=== PATIENT | male | born 1950 | race Caucasian/White ===

== ENCOUNTER 2019-10-31 10:06 | Emergency (ER) | payer MEDICARE ==
[2019-10-31 10:15] VITALS: TEMP 98
[2019-10-31] MEDS ORDERED: HYDROmorphone 1 MG/ML 1 ML SYRINGE IVP STA ×2 (10:19→11:20)
--- NOTE | 2019-10-31 10:33 | ED ---
General Adult HPI - General Chief complaint: Fall Stated complaint: Fall Time Seen by Provider: 10/31/19 10:08 Source: patient, EMS, RN notes reviewed, old records reviewed Mode of arrival: EMS Limitations: no limitations - History of Present Illness Initial comments: 69-year-old male presents status post fall. Patient states he was walking, tripped over a footstool and fell onto his right shoulder and right side of his face. There was no loss consciousness. His chief complaint is right shoulder pain. He does report a mild headache and facial swelling. No neck pain. He was placed in a c-collar by EMS during transport. Additionally was placed in an upper extremity sling. Vital signs were stable during transport. Patient denies chest pain or abdominal pain. Denies any lower extremity injuries. - Related Data Home Medications Medication Instructions Recorded Confirmed Donepezil [Aricept] 10 mg PO DAILY 08/17/14 10/28/14 Pantoprazole Sodium [Protonix] 40 mg PO DAILY 08/17/14 10/28/14 Sertraline [Zoloft] 150 mg PO DAILY 08/17/14 10/28/14 amantadine HCL [Symmetrel] 100 mg PO BID 08/17/14 10/28/14 lamoTRIgine [LaMICtal] 25 mg PO HS 08/17/14 10/28/14 rOPINIRole HCL [Requip] 1 mg PO HS 08/17/14 10/28/14 Previous Rx's Medication Instructions Recorded Cephalexin [Keflex] 500 mg PO Q8HR #21 cap 10/28/14 HYDROcodone/APAP 5-325MG [[place] 1 tab PO Q6HR PRN #12 tab 10/31/19 5-325] Allergies Allergy/AdvReac Type Severity Reaction Status Date / Time aspirin Allergy Unknown Verified 08/20/14 09:03 Penicillins Allergy Rash/Hives Verified 10/28/14 16:08 Review of Systems ROS Statement: Those systems with pertinent positive or pertinent negative responses have been documented in the HPI. ROS Other: All systems not noted in ROS Statement are negative. 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, History of Any Multi-Drug Resistant Organisms: None Reported Past Surgical History: Hernia Repair, Orthopedic Surgery Additional Past Surgical History / Comment(s): rt shoulder surgery Past Anesthesia/Blood Transfusion Reactions: Motion Sickness, Postoperative Nausea & Vomiting (PONV) Additional Past Anesthesia/Blood Transfusion Reaction / Comment(s): severe PONV Past Psychological History: No Psychological Hx Reported Smoking Status: Never smoker Past Alcohol Use History: None Reported Past Drug Use History: None Reported - Past Family History Father Family Medical History: Cancer General Exam Limitations: no limitations General appearance: alert, in no apparent distress Head exam: Present: other (Right periorbital and frontal soft tissue swelling, ecchymosis and hematoma) Eye exam: Present: PERRL, EOMI, periorbital swelling Neck exam: Present: normal inspection, other (C-collar placed by EMS) Respiratory exam: Present: normal lung sounds bilaterally. Absent: respiratory distress, wheezes Cardiovascular Exam: Present: regular rate, normal rhythm GI/Abdominal exam: Present: soft. Absent: distended, tenderness Extremities exam: Present: other (Significant pain with range of motion of the right shoulder, scapula is externally rotated suspect dislocation) Back exam: Present: normal inspection, full ROM. Absent: tenderness Neurological exam: Present: alert, oriented X3, CN II-XII intact. Absent: motor sensory deficit Psychiatric exam: Present: normal affect, normal mood Skin exam: Present: warm, dry Course Vital Signs 10/31/19 10/31/19 10/31/19 10:10 11:54 12:25 Temperature 98.0 F Pulse Rate 98 78 88 Respiratory 15 14 16 Rate Blood Pressure 160/95 126/77 165/75 O2 Sat by Pulse 95 98 100 Oximetry 10/31/19 10/31/19 10/31/19 12:30 12:35 12:40 Temperature Pulse Rate 60 56 L 80 Respiratory 16 16 16 Rate Blood Pressure 150/90 139/84 141/84 O2 Sat by Pulse 100 100 98 Oximetry 10/31/19 10/31/19 10/31/19 12:45 12:50 12:55 Temperature Pulse Rate 65 67 67 Respiratory 16 16 16 Rate Blood Pressure 131/77 123/76 125/77 O2 Sat by Pulse 98 100 98 Oximetry Procedures - Orthopedic Joint Reduction Joint #1 Consent Obtained: written consent Side: right Joint Reduction Location: shoulder Analgesia: procedural sedation Shoulder Technique Used (if applicable): traction/counter-traction, external rotation Post-Reduction Neuro Exam: intact Post-Reduction Vascular Exam: intact Post Reduction X-Ray Obtained: Yes Post Reduction X-Ray Results: reduced Splint Applied: Yes (sling) Patient Tolerated Procedure: well - Procedural Sedation Procedural Sedation Start Time: 12:30 Procedural Sedation Stop Time: 13:00 Indications: fracture/dislocation reduction ASA Class: II Mallampati Airway Score: 2 Preparation: quality assurance monitor final applied, pulse oximeter, capnometry used, supplemental O2 applied, suction/airway equipment at bedside, IV secured IV Etomidate Dose (mgs): 5 Complications: none Patient Tolerated Procedure: well Medical Decision Making - Medical Decision Making 69-year-old with fall, head trauma, and dislocation of the right shoulder. Patient has strong distal pulses, x-rays obtained, shows a Hill-Sachs deformity and anterior dislocation of the right shoulder. I did CT of brain and cervical spine, negative for intracranial hemorrhage or mass effect, negative for fracture subluxation of the cervical spine, he has no midline tenderness. Patient undergoes conscious sedation with reduction of the right shoulder. Postreduction x-rays are obtained which shows satisfactory reduction and sling is applied. He is given orthopedic follow-up. Disposition Clinical Impression: Fall, Closed head injury, Anterior shoulder dislocation Disposition: HOME SELF-CARE Condition: Good Instructions (If sedation given, give patient instructions): Shoulder Dislocation (ED), Concussion (ED) Prescriptions: HYDROcodone/APAP 5-325MG [[place] 5-325] 1 tab PO Q6HR PRN #12 tab PRN Reason: Pain Is patient prescribed a controlled substance at d/c from ED?: No Referrals: Colin Amanda MD [Primary Care Provider] - 1-2 days Adilson Jamison MD [STAFF PHYSICIAN] - 1-2 days Time of Disposition: 13:14
--- NOTE | 2019-10-31 10:55 | XR ---
EXAMINATION TYPE: XR shoulder limited RT DATE OF EXAM: 10/31/2019 CLINICAL HISTORY: Pain after fall injury. TECHNIQUE: 2 views of the right shoulder are obtained. COMPARISON: Chest x-ray 2012. FINDINGS: The humeral head is inferiorly medially displaced from the glenoid cavity consistent with a nterior dislocation. There is associated Hill-Sachs type fracture deformity involving the posterior s uperior aspect of the humeral head. No definitive associated Bankart lesion inferior osseous glenoid labrum. 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 Correlate clinically. The visualized ribs are intact and unremarkable. IMPRESSION: There is anterior shoulder dislocation with associated Hill-Sachs lesion.
--- NOTE | 2019-10-31 11:08 | CT ---
EXAMINATION TYPE: CT brain cspine wo con DATE OF EXAM: 10/31/2019 COMPARISON: Prior CT degenerative 06/04/2011. HISTORY: Fall injury with headache and neck pain. CT DLP: 1309.6 mGycm. Automated Exposure Control for Dose Reduction was Utilized. TECHNIQUE: CT scan of the head and cervical spine are performed without contrast. FINDINGS: There is no acute intracranial hemorrhage, mass effect, or midline shift identified. Mild ventricular and sulcal prominence. The calvarium is intact. The globes are intact and the visualize d sinuses are clear. Cervical spine is visualized in only visualized from C1 through portion of C7 vertebra and demonstrat es persistent levoconvex scoliosis centered upper lower cervical spine without evidence of acute frac ture or dislocation. Prevertebral soft tissue appears within normal limits. The C1-C2 articulation is within normal limits on the coronal images have to right now. Vertebral body heights are maintain ed. Persistent mild to moderate disc space narrowing posteriorly at C3-C4 and C5-C6 level. Visualized spinal canal is preserved. IMPRESSION: 1. There is no acute fracture or dislocation evident in the visualized cervical spine. C7 vertebra an d C7-T1 disc space are not included making evaluation suboptimal. 2. No acute intracranial hemorrhage or midline shift is seen.
[2019-10-31] MEDS ORDERED: KETOROLAC 15 MG/ML 1 ML VIAL IVP STA (11:20)
[2019-10-31] MEDS ORDERED: ETOMIDATE 2 MG/ML 10 ML VIAL IVP STA (12:16)
--- NOTE | 2019-10-31 12:54 | XR ---
EXAMINATION TYPE: XR shoulder limited RT DATE OF EXAM: 10/31/2019 CLINICAL HISTORY: Right shoulder dislocation. TECHNIQUE: Limited 2 views of the right shoulder are obtained. COMPARISON: Shoulder xray earlier today. FINDINGS: There is improved alignment of humeral head relative to glenoid cavity after reduction. Miguel ny Hill-Sachs type deformity less well seen. Chronic AC joint separation redemonstrated. IMPRESSION: There is interval successful reduction of anterior shoulder dislocation.
[2019-10-31 12:56] VITALS: PULSE 67
[2019-10-31 13:47] VITALS: BP 96/71; RESP 18
== END 2019-10-31 13:45 | disposition home or self-care (01) ==
LOC: EC 10:06
DX: S43.004A Unspecified dislocation of right shoulder joint, initial encounter (principal); S09.90XA Unspecified injury of head, initial encounter; K21.9 Gastro-esophageal reflux disease without esophagitis; M21.921 Unspecified acquired deformity of right upper arm; Z79.899 Other long term (current) drug therapy; Z88.0 Allergy status to penicillin; Z88.6 Allergy status to analgesic agent; Z98.890 Other specified postprocedural states; W01.0XXA Fall on same level from slipping, tripping and stumbling without subsequent striking against object, initial encounter; Y93.01 Activity, walking, marching and hiking; Y92.009 Unspecified place in unspecified non-institutional (private) residence as the place of occurrence of the external cause
CPT/HCPCS: 73020; 72125; 70450; 99285; 23650; 99152; 99153; 96374; 96375 ×2; 96376; J1170; J1885

== ENCOUNTER → 2020-06-30 | Outpatient (CLI) | payer MEDICARE | END | disposition home or self-care (01) | LOC: LABWHC1 12:24 | PROVIDERS: ATTEND Urology | DX: R97.20 Elevated prostate specific antigen [PSA] (principal) | CPT/HCPCS: 36415; 84153 ==

== ENCOUNTER → 2021-02-08 | Outpatient (CLI) | payer MEDICARE | END | disposition home or self-care (01) | LOC: LABWHC1 13:48 | PROVIDERS: ATTEND Urology | DX: R97.20 Elevated prostate specific antigen [PSA] (principal) | CPT/HCPCS: 36415; 84153 ==

== ENCOUNTER 2021-02-11 20:17 | Emergency (ER) | payer MEDICARE ==
[2021-02-11] MEDS ORDERED: DIPH,PERTUS(ACELL)TETVAC-LF 0.5 ML VIAL IM ONE (21:38)
[2021-02-11] MEDS ORDERED: TOPICAL SKIN ADHESIVE 1 EACH AMP TOPICAL STA (21:38)
--- NOTE | 2021-02-11 21:42 | ED ---
Wound/Laceration HPI - General Chief Complaint: Wound/Laceration Stated Complaint: laceration on head Time Seen by Provider: 02/11/21 21:38 Source: patient Mode of arrival: ambulatory Limitations: no limitations - History of Present Illness Initial Comments: 70 year-old male patient presents to the emergency department for evaluation of forehead laceration. States around 4 hours ago he slipped and fell outside. States he hit his head on cement. States he has very mild headache. Denies any of consciousness. Denies use of blood thinning medications. Denies any vision, double vision, dizziness, or weakness. Denies nausea or vomiting. Denies any neck pain. Denies any other injuries. States he is unable to get the wound to stop bleeding so he came in for further evaluation. He is unsure when his last tetanus vaccine was given. - Related Data Home Medications Medication Instructions Recorded Confirmed Donepezil [Aricept] 10 mg PO DAILY 08/17/14 10/28/14 Pantoprazole Sodium [Protonix] 40 mg PO DAILY 08/17/14 10/28/14 Sertraline [Zoloft] 150 mg PO DAILY 08/17/14 10/28/14 amantadine HCL [Symmetrel] 100 mg PO BID 08/17/14 10/28/14 lamoTRIgine [LaMICtal] 25 mg PO HS 08/17/14 10/28/14 rOPINIRole HCL [Requip] 1 mg PO HS 08/17/14 10/28/14 Previous Rx's Medication Instructions Recorded Cephalexin [Keflex] 500 mg PO Q8HR #21 cap 10/28/14 HYDROcodone/APAP 5-325MG [[place] 1 tab PO Q6HR PRN #12 tab 10/31/19 5-325] Allergies Allergy/AdvReac Type Severity Reaction Status Date / Time aspirin Allergy Unknown Verified 02/11/21 21:33 Penicillins Allergy Rash/Hives Verified 02/11/21 21:33 Review of Systems ROS Statement: Those systems with pertinent positive or pertinent negative responses have been documented in the HPI. ROS Other: All systems not noted in ROS Statement are negative. 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, History of Any Multi-Drug Resistant Organisms: None Reported Past Surgical History: Hernia Repair, Orthopedic Surgery Additional Past Surgical History / Comment(s): rt shoulder surgery Past Anesthesia/Blood Transfusion Reactions: Motion Sickness, Postoperative Nausea & Vomiting (PONV) Additional Past Anesthesia/Blood Transfusion Reaction / Comment(s): severe PONV Past Psychological History: No Psychological Hx Reported Smoking Status: Never smoker Past Alcohol Use History: None Reported Past Drug Use History: None Reported - Past Family History Father Family Medical History: Cancer General Exam Limitations: no limitations General appearance: alert, in no apparent distress, other (This is a well- developed, well-nourished adult male in no acute distress.) Head exam: Present: other (There is 2 cm laceration noted to the forehead, there is surrounding abrasion. There is mild bleeding noted. No soft tissue swelling, bony step-off or deformity noted to palpation around the site.) Eye exam: Present: normal appearance, PERRL, EOMI. Absent: scleral icterus, conjunctival injection, nystagmus, periorbital swelling ENT exam: Present: normal exam, normal oropharynx, mucous membranes moist, TM's normal bilaterally Neck exam: Present: normal inspection, full ROM, other (Nontender, no step-off, no deformity to firm midline palpation of the thoracic and lumbar vertebrae. Full range of motion without pain or limitation.). Absent: tenderness, m eningismus, lymphadenopathy Respiratory exam: Present: normal lung sounds bilaterally. Absent: respiratory distress, wheezes, rales, rhonchi, stridor Cardiovascular Exam: Present: regular rate, normal rhythm, normal heart sounds. Absent: systolic murmur, diastolic murmur, rubs, gallop, clicks Neurological exam: Present: alert, oriented X3 (Place, date, time), CN II-XII intact, other (Strength in all 4 extremities is 5/5.) Psychiatric exam: Present: normal affect, normal mood Skin exam: Present: warm, dry, intact, normal color. Absent: rash Course Vital Signs 02/11/21 02/11/21 21:29 22:26 Temperature 98.0 F Pulse Rate 75 78 Respiratory 20 18 Rate Blood Pressure 129/79 126/80 O2 Sat by Pulse 97 98 Oximetry Procedures - Laceration Laceration #1 Consent Obtained: verbal consent Indication: laceration Site: scalp (frontal) Size (cm): 2 Description: linear Depth: simple, single layer Type of Sutures: other (exofin) Patient Tolerated Procedure: well, no complications Medical Decision Making - Medical Decision Making 70-year-old male patient presented to the emergency department today for evaluation of laceration to the frontal region of the scalp. Its 2 cm, mild oozing of blood. He is neurologically intact with no focal deficits. Reports only mild headache. Wound was repaired using exofin skin adhesive. I did discuss the computed tomography scan with the patient, states that he feels that he is fine and would rather be discharged to follow-up outpatient. We did discuss return parameters in detail. Case discussed with my attending Dr. Acuna. Disposition Clinical Impression: Scalp laceration Disposition: HOME SELF-CARE Condition: Good Instructions (If sedation given, give patient instructions): Laceration (ED), Skin Adhesive Care (ED) Additional Instructions: Do not pick or pull at the group. Do not apply any oil-based ointment over the area. You may wash your hair as usual. Follow-up with your primary care ph ysician for recheck in 1-2 days. Return for any new, worsening, or concerning symptoms. Is patient prescribed a controlled substance at d/c from ED?: No Referrals: Christianne Hartman MD [Primary Care Provider] - 1-2 days
[2021-02-11 22:28] VITALS: BP 126/80; PULSE 78; RESP 18; TEMP 98
== END 2021-02-11 22:26 | disposition home or self-care (01) ==
LOC: EC 20:17
DX: S01.01XA Laceration without foreign body of scalp, initial encounter (principal); K21.9 Gastro-esophageal reflux disease without esophagitis; M19.90 Unspecified osteoarthritis, unspecified site; Z88.0 Allergy status to penicillin; W01.10XA Fall on same level from slipping, tripping and stumbling with subsequent striking against unspecified object, initial encounter
CPT/HCPCS: 12001; 90471; 90715; 99283

== ENCOUNTER 2021-02-22 08:05 | Day surgery (SDC) | payer MEDICARE ==
[2021-02-20 13:02] VITALS: BMI 28.2
[~2021-02-22 08:05] MED LIST: LACTATED RINGERS 1,000 ML IV SCH; LIDOCAINE 1% (10MG/ML) FOR IV START INTRADERMA PRN; PROPOFOL 10 MG/ML 20 ML VIAL IV ONE
[2021-02-22 08:38] VITALS: TEMP 97.4
--- NOTE | 2021-02-22 09:23 | P.PCN ---
Date of Procedure: 02/22/21 Procedure(s) Performed: BRIEF HISTORY: Patient is a 70-year-old pleasant male scheduled for an elective colonoscopy as a part of evaluation of prior history of colon polyps. His last colonoscopy was 5 years ago. PROCEDURE PERFORMED: Colonoscopy with snare polypectomy. PREOPERATIVE DIAGNOSIS: History of colon polyps. IV sedation per Anesthesia. PROCEDURE: After informed consent was obtained, the patient, was brought into the endoscopy unit. IV sedation was administered by Anesthesia under continuous monitoring. Digital rectal examination was normal. Initially the Olympus CF-160 flexible video colonoscope was then inserted in the rectum, gradually advanced into the cecum without any difficulty. Careful examination was performed as the scope was gradually being withdrawn. Ileocecal valve and the appendiceal orifice were visualized and appeared normal. Prep was excellent. Mucosa of the cecum, appeared normal. Ascending colon there was a 5 mm and 1 cm polyps that were removed by snare polypectomy. Rest of the appeared normal. The descending colon there was a 3 mm and 5 mm polyp removed by snare polypectomy. In the rectum there was a 3 mm and 5 limited polyp removed by snare polypectomy. Rest of the ascending colon, transverse colon, descending colon, sigmoid colon, and rectum appeared normal. Scattered sigmoid diverticulosis. Retroflexion was performed in the rectum and no lesions were seen. The patient tolerated the procedure well. IMPRESSION: 5 mm and 1 cm ascending colon polyp status post polypectomy 3 mm and 5 mm descending colon polyp status post polypectomy 3 mm and 4 mm rectal polyps status post polypectomy Scattered sigmoid diverticulosis RECOMMENDATIONS: Findings of this examination were discussed with the patient as well as his family.. He was advised to follow with the biopsy results. If the biopsy reveals adenoma he can have a repeat colonoscopy in 3-5 years
[2021-02-22 09:48] VITALS: BP 124/76; PULSE 62; RESP 16
== END 2021-02-22 10:15 | disposition home or self-care (01) ==
LOC: ORWHC2ENDO 08:05
PROVIDERS: ATTEND Internal Medicine Gastroenterology
DX: Z12.11 Encounter for screening for malignant neoplasm of colon (principal); K57.90 Diverticulosis of intestine, part unspecified, without perforation or abscess without bleeding; D12.2 Benign neoplasm of ascending colon; D12.8 Benign neoplasm of rectum; E78.5 Hyperlipidemia, unspecified; Z88.6 Allergy status to analgesic agent; K21.9 Gastro-esophageal reflux disease without esophagitis; Z88.0 Allergy status to penicillin; Z79.899 Other long term (current) drug therapy
CPT/HCPCS: 88305; 45385; J2704

== ENCOUNTER → 2021-05-08 | Outpatient (CLI) | payer MEDICARE ==
--- NOTE | 2021-05-08 13:22 | CT ---
EXAMINATION TYPE: CT pelvis w con DATE OF EXAM: 05/08/2021 COMPARISON: HISTORY: Prostate cancer CT DLP: 749.7 mGycm Automated exposure control for dose reduction was used. CONTRAST: CT scan of the abdomen pelvis is performed with IV Contrast, patient injected with 100 mL of Isovue 3 00. FINDINGS- Hypertrophic and degenerative changes spine. Arthropathy of the hip joints. No erosive changes. Arthr opathy of the SI joints. No diagnostic evidence of bony metastases. There is moderate to severe left-sided hydronephrosis secondary to an obstructing proximal left urete ral calculus measuring a diameter of 6 mm. Mild bladder wall thickening suggest chronic cystitis. Small hypodensities within the bilateral kidne ys are noted which are most likely related to simple cyst. Visualized pancreas normal. Visualized adr enal gland normal. Changes of diverticulosis of the sigmoid colon. No free fluid. Atherosclerotic change aorta. No aneur ysm. Fat-containing periumbilical hernia. There is no pathologic adenopathy. The prostate is markedly enlarged and heterogeneous in attenuation . IMPRESSION- 1. Moderate to severe hydronephrosis secondary to 6 mm proximal left ureteral calculus. 2. Enlarged and heterogeneous prostate compatible the patient's history of prostate carcinoma. 3. Correlate for mild cystitis. 4. Diverticulosis. 5. Fat-containing periumbilical hernia
--- NOTE | 2021-05-08 14:29 | NM ---
EXAMINATION TYPE: NM bone scan whole body DATE OF EXAM: 05/08/2021 COMPARISON: NONE HISTORY: Prostate cancer Delayed whole-body scanning was performed following the injection of 23.5 mCi Tc 99m MDP. Images acq uired 3 hours post injection. FINDINGS: There is left-sided hydronephrosis. Abnormal uptake involving the right shoulder appears related to prior trauma by x-ray. Abnormal uptake involving the left shoulder likely post arthritic. Abnormal uptake involving the knee s, feet, hands and wrists likely post arthritic. Abnormal uptake involving the left mandible likely r elated. Disease. IMPRESSION: 1. No diagnostic evidence of metastases. 2. Left-sided hydronephrosis.
== END | disposition home or self-care (01) ==
LOC: RADNMMAIN 09:53
PROVIDERS: ATTEND Urology
DX: C61 Malignant neoplasm of prostate (principal); N13.2 Hydronephrosis with renal and ureteral calculous obstruction; K57.90 Diverticulosis of intestine, part unspecified, without perforation or abscess without bleeding; K42.9 Umbilical hernia without obstruction or gangrene
CPT/HCPCS: 82565; 84520; 72193; 36415; 78306; A9503; Q9967

== ENCOUNTER → 2021-05-19 | Outpatient (CLI) | payer MEDICARE ==
[2021-05-19 19:12] LABS: Basophils # (A) 0.04 X 10*3/uL (0.00-0.10); Basophils % (A) 0.5 %; Eosinophils # (A) 0.14 X 10*3/uL (0.04-0.35); Eosinophils % (A) 1.8 %; HCT 42.9 % (39.6-50.0); HGB 13.7 g/dL (13.0-17.0); Immature Grans, Automated 0.7 %; Lymphocytes # (A) 1.01 X 10*3/uL (0.90-5.00); Lymphocytes % (A) 13.3 %; MCH 29.8 pg (27.0-32.0); MCHC 31.9 g/dL (32.0-37.0); MCV 93.3 fL (80.0-97.0); Mean Platelet Volume 12.1 fL (9.5-12.2); Monocytes # (A) 0.67 X 10*3/uL (0.20-1.00); Monocytes % (A) 8.9 %; NRBC Per 100 WBC 0 /100 WBCS (0.0-0.0); Neutrophils # (A) 5.66 X 10*3/uL (1.80-7.70); Neutrophils % (A) 74.8 %; Platelet Count 179 X 10*3/uL (140-440); WBC 7.57 X 10*3/uL (4.50-10.00)
[2021-05-19 23:06] LABS: African American GFR (CKD) 83.7 (60.0-200.0); Anion Gap 12.6 mmol/L (10.00-18.00); BUN/Creat Ratio 18.35 Ratio (12.00-20.00); Blood Urea Nitrogen 18.9 mg/dL (9.0-27.0); Calcium 8.9 mg/dL (8.7-10.3); Carbon Dioxide 19.4 mmol/L (20.0-27.5); Non-African American GFR(CKD) 72.2 (60.0-200.0); Potassium 4.2 mmol/L (3.5-5.5)
== END | disposition home or self-care (01) ==
LOC: LABPAT 13:31
PROVIDERS: ATTEND Urology
DX: Z01.812 Encounter for preprocedural laboratory examination (principal); N20.1 Calculus of ureter
CPT/HCPCS: 80048; 85025; 93005

== ENCOUNTER 2021-05-25 07:43 | Day surgery (SDC) | payer MEDICARE ==
--- NOTE | 2021-05-20 08:10 | P.GSHP ---
History of Present Illness H&P Date: 05/20/21 Chief Complaint: Left flank discomfort The patient is a 70-year-old white male with an elevated PSA level. His most recent PSA level was 7.6. He recently underwent a prostate ultrasound with biopsies, revealing high-grade prostate cancer. His metastatic evaluation consisted of a CT scan which revealed a large left proximal ureteral calculus resulting in moderate left hydronephrosis. Although the report indicated that the calculus measures 6 mm in size, by my review it measures 8 x 17 mm. The patient was advised that this calculus has an extremely low likelihood of passing, and he has been advised to undergo removal of the calculus. I have recommended he undergo ureteroscopy with laser lithotripsy rather than extracorporal shockwave lithotripsy (ESWL) due to its higher success rate for a calculus this size. In retrospect, he reports mild left flank discomfort. 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, Prostate Cancer History of Any Multi-Drug Resistant Organisms: None Reported Past Surgical History: Hernia Repair, Orthopedic Surgery Additional Past Surgical History / Comment(s): rt shoulder surgery Past Anesthesia/Blood Transfusion Reactions: Motion Sickness, Postoperative Nausea & Vomiting (PONV) Additional Past Anesthesia/Blood Transfusion Reaction / Comment(s): severe PONV Past Alcohol Use History: None Reported - Past Family History Father Family Medical History: Cancer Medications and Allergies Home Medications Medication Instructions Recorded Confirmed Type Donepezil [Aricept] 10 mg PO DAILY 08/17/14 02/20/21 History Pantoprazole Sodium [Protonix] 40 mg PO DAILY 08/17/14 02/20/21 History amantadine HCL [Symmetrel] 100 mg PO BID 08/17/14 02/20/21 History lamoTRIgine [LaMICtal] 25 mg PO BID 08/17/14 02/20/21 History Rosuvastatin Calcium [Crestor] 5 mg PO W/LUNCH 02/20/21 02/22/21 History Sertraline [Zoloft] 100 mg PO DAILY 02/20/21 02/20/21 History Allergies Allergy/AdvReac Type Severity Reaction Status Date / Time aspirin Allergy NAUSEA Verified 02/22/21 08:29 /VOMITING Penicillins Allergy Rash/Hives Verified 02/22/21 08:29 NSAIDS (Non-Steroidal AdvReac Unknown Nausea & Verified 02/22/21 08:29 Anti-Inflamma Vomiting-UPSET STOMACH Surgical - Exam - General well developed, well nourished, no distress - Respiratory normal respiratory effort - Abdomen Abdomen: soft, non tender, no guarding, no rigid, no rebound - Genitourinary normal penis with no external lesions, testicles non-tender - Psychiatric oriented to time, oriented to person, oriented to place, speech is normal, memory intact Results - Imaging CT scan - abdomen: report reviewed, image reviewed Assessment and Plan (1) Calculus of ureter Status: Acute Code(s): N20.1 - CALCULUS OF URETER SNOMED Code(s): 74055337 (2) Hydronephrosis with renal and ureteral calculous obstruction Status: Acute Code(s): N13.2 - HYDRONEPHROSIS WITH RENAL AND URETERAL CALCULOUS OBSTRUCTION SNOMED Code(s): 651314911 Plan: Cystoscopy, left ureteroscopy with Holmium laser lithotripsy and possible stone basketing, left ureteral stent insertion. He and his family understand that given the stone burden, he may require a secondary procedure. They are aware of potential risks, which include anesthesia, bleeding, infection, and ureteral injury.
[2021-05-24 08:58] VITALS: BMI 28.1
[~2021-05-25 07:43] MED LIST changes: -LACTATED RINGERS 1,000 ML IV SCH; +LEVOFLOXACIN 500MG-D5W PMX 500 MG in DEXTROSE/WATER 1 100ML.BAG IVPB PRN; -LIDOCAINE 1% (10MG/ML) FOR IV START INTRADERMA PRN; -PROPOFOL 10 MG/ML 20 ML VIAL IV ONE
[2021-05-25] MEDS ORDERED: DEXAMETHASONE SOD PHOSPHATE 4 MG/ML 1 ML VIAL IV ONE (07:58)
[2021-05-25] MEDS ORDERED: LACTATED RINGERS 1,000 ML IV SCH (07:58)
[2021-05-25] MEDS ORDERED: MIDAZOLAM 2 MG/2 ML VIAL IV PRN (07:58)
[2021-05-25] MEDS ORDERED: HYDROmorphone 0.5 MG/0.5 ML SYRINGE IVP PRN (07:58)
[2021-05-25] MEDS ORDERED: ONDANSETRON 4 MG/2 ML VIAL IVP ONE (07:58)
--- NOTE | 2021-05-25 08:18 | XR ---
KUB HISTORY: Lithotripsy, ureteral calculus Frontal KUB submitted, no comparisons There is an oval calcification in the left paraspinal location at approximately the disc space level of L2-3 measuring approximately 19 mm x 6 mm. No evident bowel obstruction or pneumoperitoneum. Bone mineralization is normal. Calcifications are noted associated with the left hip, there may be osteoar thritic change. Metallic density superimposed over the left femoral head is indeterminate and may be overlying patient. IMPRESSION: Possible renal pelvic or proximal left ureteral calcification.
[2021-05-25 08:32] VITALS: RESP 16
[2021-05-25] MEDS ORDERED: LIDOCAINE 1% (10MG/ML) FOR IV START INTRADERMA ONE (08:35)
[2021-05-25] MEDS ORDERED: SUCCINYLCHOLINE CHLORIDE 100 MG/5 ML SYR IV ONE (10:18)
[2021-05-25] MEDS ORDERED: fentaNYL (PF) 50 MCG/ML 2 ML AMP ONE (10:18)
[2021-05-25] MEDS ORDERED: LIDOCAINE 1% INJ 10MG/ML (20 ML MDV) ONE (10:18)
[2021-05-25] MEDS ORDERED: FUROSEMIDE 10 MG/ML 2 ML VIAL ONE (10:18)
[2021-05-25] MEDS ORDERED: PROPOFOL 10 MG/ML 20 ML VIAL IV ONE (10:18)
[2021-05-25] MEDS ORDERED: LACTATED RINGERS 1,000 ML IV ONE (11:36)
--- NOTE | 2021-05-25 12:58 | FL ---
Fluoroscopy HISTORY: Left ureteral calculus 11 seconds fluoroscopy time supplied to the referring clinician. 2 intraoperative C-arm images docum ent the procedure. See dictated report from urology.
--- NOTE | 2021-05-25 13:03 | P.OP ---
Date of Procedure: 05/25/21 Preoperative Diagnosis: Left ureteral calculus Postoperative Diagnosis: Same Procedure(s) Performed: Cystoscopy, left ureteroscopy with Holmium laser lithotripsy, left ureteral stent insertion, fulguration of bleeders Anesthesia: JOE Surgeon: Theo Esteves Estimated Blood Loss (ml): 60 IV fluids (ml): 900 Pathology: none sent Condition: stable Disposition: PACU Indications for Procedure: The patient is a 70-year-old white male with an elevated PSA level. His most recent PSA level was 7.6. He recently underwent a prostate ultrasound with biopsies, revealing high-grade prostate cancer. His metastatic evaluation consisted of a CT scan which revealed a large left proximal ureteral calculus resulting in moderate left hydronephrosis. Although the report indicated that the calculus measures 6 mm in size, by my review it measures 8 x 17 mm. The p atient was advised that this calculus has an extremely low likelihood of passing, and he has been advised to undergo removal of the calculus. I have recommended he undergo ureteroscopy with laser lithotripsy rather than extracorporal shockwave lithotripsy (ESWL) due to its higher success rate for a calculus this size. In retrospect, he reports mild left flank discomfort. Operative Findings: Impacted left proximal ureteral calculus, fragmented completely. Prostatic bleeders. Description of Procedure: The patient was taken to the operating room and placed in the dorsolithotomy position, with legs supported in Santino stirrups. The external genitalia was prepped and draped sterilely. The 30 lens was used to introduce the 21-Peruvian Barry cystoscopic sheath through the urethra and into the bladder under direct vision. The prostatic urethra showed evidence of significant lateral lobe enlargement. The bladder was examined in its entirety. Both ureteral orifices were normal anatomic location and configuration, and clear urine effluxed from both. No tumors or foreign bodies were seen. Some oozing of the posterior vesical neck occurred as a result of passage of the cystoscope into the bladder. A 0.038 inch Glidewire was passed through the cystoscope. The left ureteral orifice was cannulated, and the Glidewire was advanced beyond the calculus and up to the renal pelvis. The cystoscope was removed, and an 11/13-Peruvian ureteral access catheter was passed over the wire, up to the proximal ureter. The Barry [employer] flexible ureteroscope was then passed through the ureteral access catheter sheath, up to the stone. The 272 micron Holmium laser probe was passed through the ureteroscope, and lithotripsy was performed. Utilizing a combination of dusting and fragmenting, the calculus was fragmented completely. It was impacted and adherent to the mucosa in some areas. The majority of the calculus fragments passed retrograde up to the left renal pelvis. The ureteroscope was advanced, and additional lithotripsy was performed within the renal pelvis. The majority of the calculus was dustlike particles. The urete roscope was withdrawn under direct vision. There was evidence of inflammation where the calculus had been impacted, but no evidence of ureteral perforation. The Glidewire was passed through the ureteral access catheter sheath, which was removed. The Glidewire was backloaded into the cystoscope, which was passed into the bladder. A 26 cm, 6-Peruvian double-J ureteral stent was placed over the wire. Proper stent positioning was verified fluoroscopically and endoscopically. Some clots were seen within the bladder. These were drained from the bladder, and the prostatic fossa was inspected. Some bleeders were noted, particularly from the right posterior vesical neck and the left lateral lobe. The Bugbee electrode was used to fulgurate the areas of bleeding, though complete hemostasis could not be obtained. 10 mg of Lasix was given intravenously, and an 18-Peruvian Levine catheter was placed. The patient tolerated the procedure well and was taken to the recovery room in stable condition. MUSIC ROCKS Report: Procedure Acuity: Semi-Urgent Stone Size and Location: 8 x 17 mm, left proximal ureter Ureteral Dilation: No Ureteral Access Sheath Used: Yes Stone Sent for Analysis: No All Stones/Fragments Were Removed with a Basket: No Complications: No Preoperative Antibiotics Given: Yes Stent Placed: Yes If Stent Placed, Was String Left Attached: No If Stent Placed, When is it to be Removed: 2 weeks Discharge Medications: Tamsulosin
[2021-05-25 13:25] VITALS: TEMP 97.6
[2021-05-25 14:45] VITALS: BP 127/81; PULSE 78
== END 2021-05-25 15:09 | disposition home or self-care (01) ==
LOC: OR 07:43
PROVIDERS: ATTEND Urology
DX: N20.1 Calculus of ureter (principal); R97.20 Elevated prostate specific antigen [PSA]; E78.5 Hyperlipidemia, unspecified; R41.3 Other amnesia; Z87.820 Personal history of traumatic brain injury; K21.9 Gastro-esophageal reflux disease without esophagitis
CPT/HCPCS: 52356; 74018; C2625; C1769; C1758; J1100; J1940; J2405; J1956; J2001; J3010; J0330; J2704

== ENCOUNTER 2021-06-09 05:59 | Day surgery (SDC) | payer MEDICARE ==
[2021-06-06 16:09] VITALS: BMI 28.1
--- NOTE | 2021-06-08 11:56 | P.GSHP ---
History of Present Illness H&P Date: 06/08/21 Chief Complaint: Left flank discomfort The patient is a 70-year-old white male with an elevated PSA level. His most recent PSA level was 7.6. He recently underwent a prostate ultrasound with biopsies, revealing high-grade prostate cancer. His metastatic evaluation consisted of a CT scan which revealed a large left proximal ureteral calculus resulting in moderate left hydronephrosis. Although the report indicated that the calculus measures 6 mm in size, by my review it measured 8 x 17 mm. The patient was advised that this calculus has an extremely low likelihood of passing, and he thus underwent left ureteroscopy with laser lithotripsy on 05/25/2021. Some calculus fragments refluxed into the kidney, and visualization was poor. A ureteral stent was placed, and he now comes for stent removal and ureteroscopic removal of any remaining calculus fragments. 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,prostate cancer History of Any Multi-Drug Resistant Organisms: None Reported Past Surgical History: Hernia Repair, Orthopedic Surgery Additional Past Surgical History / Comment(s): right shoulder surgery, left ureteroscopy with laser lithotripsy and stent placement Past Anesthesia/Blood Transfusion Reactions: Motion Sickness, Postoperative Nausea & Vomiting (PONV) Additional Past Anesthesia/Blood Transfusion Reaction / Comment(s): severe PONV Smoking Status: Never smoker - Past Family History Father Family Medical History: Cancer Medications and Allergies Home Medications Medication Instructions Recorded Confirmed Type Donepezil [Aricept] 10 mg PO DAILY 08/17/14 06/06/21 History Pantoprazole Sodium [Protonix] 40 mg PO QAM 08/17/14 06/06/21 History amantadine HCL [Symmetrel] 100 mg PO BID 08/17/14 06/06/21 History lamoTRIgine [LaMICtal] 25 mg PO BID 08/17/14 06/06/21 History Rosuvastatin Calcium [Crestor] 5 mg PO W/LUNCH 02/20/21 06/06/21 History Sertraline [Zoloft] 100 mg PO QAM 02/20/21 06/06/21 History Tamsulosin [Flomax] 0.4 mg PO QAM 06/06/21 06/06/21 History Allergies Allergy/AdvReac Type Severity Reaction Status Date / Time aspirin Allergy NAUSEA Verified 06/06/21 15:44 /VOMITING Penicillins Allergy Rash/Hives Verified 06/06/21 15:44 NSAIDS (Non-Steroidal AdvReac Unknown Nausea & Verified 06/06/21 15:44 Anti-Inflamma Vomiting-UPSET STOMACH Surgical - Exam - General well developed, well nourished, no distress - Respiratory normal respiratory effort - Abdomen Abdomen: soft, non tender, no guarding, no rigid, no rebound - Genitourinary normal penis with no external lesions, testicles non-tender - Psychiatric oriented to time, oriented to person, oriented to place, speech is normal, memory intact Results - Imaging CT scan - abdomen: report reviewed, image reviewed Assessment and Plan (1) Calculus of ureter Status: Acute Code(s): N20.1 - CALCULUS OF URETER SNOMED Code(s): 82891459 Plan: Cystoscopy, left ureteral stent removal, left ureteroscopy with Holmium laser lithotripsy and possible stone basketing to remove the remaining calculus fragments. He and his family are aware of potential risks, which include anesthesia, bleeding, infection, and ureteral injury.
[~2021-06-09 05:59] MED LIST changes: +DEXAMETHASONE SOD PHOSPHATE 4 MG/ML 1 ML VIAL IV ONE; +HYDROmorphone 0.5 MG/0.5 ML SYRINGE IVP PRN; +LACTATED RINGERS 1,000 ML IV SCH; +LIDOCAINE 1% (10MG/ML) FOR IV START INTRADERMA PRN; +MIDAZOLAM 2 MG/2 ML VIAL IV PRN; +ONDANSETRON 4 MG/2 ML VIAL IVP ONE
[2021-06-09] MEDS ORDERED: MIDAZOLAM 2 MG/2 ML VIAL ONE (07:34)
[2021-06-09] MEDS ORDERED: SUCCINYLCHOLINE CHLORIDE 100 MG/5 ML SYR IV ONE (07:34)
[2021-06-09] MEDS ORDERED: PROPOFOL 10 MG/ML 20 ML VIAL IV ONE (07:34)
[2021-06-09] MEDS ORDERED: fentaNYL (PF) 50 MCG/ML 2 ML AMP ONE (07:34)
[2021-06-09] MEDS ORDERED: PHENYLEPHRINE-0.9% NACL SYG 1,000 MCG/10 ML SYRINGE ONE (07:34)
[2021-06-09] MEDS ORDERED: ROCURONIUM 10 MG/ML (5 ML VIAL) IV ONE (07:34)
[2021-06-09] MEDS ORDERED: LIDOCAINE 1% INJ 10MG/ML (20 ML MDV) ONE (07:34)
[2021-06-09] MEDS ORDERED: ePHEDrine 50 MG/ML 1 ML VIAL ONE (07:34)
[2021-06-09] MEDS ORDERED: LACTATED RINGERS 1,000 ML IV ONE (08:19)
--- NOTE | 2021-06-09 08:22 | P.OP ---
Date of Procedure: 06/09/21 Preoperative Diagnosis: Left renal calculi Postoperative Diagnosis: Same Procedure(s) Performed: Cystoscopy, left ureteral stent removal, left ureteroscopy with Holmium laser lithotripsy and stone basketing Anesthesia: JOE Surgeon: Theo Esteves Estimated Blood Loss (ml): 5 IV fluids (ml): 900 Pathology: none sent Condition: stable Disposition: PACU Indications for Procedure: The patient is a 70-year-old white male with an elevated PSA level. His most recent PSA level was 7.6. He recently underwent a prostate ultrasound with biopsies, revealing high-grade prostate cancer. His metastatic evaluation consisted of a CT scan which revealed a large left proximal ureteral calculus resulting in moderate left hydronephrosis. Although the report indicated that the calculus measures 6 mm in size, by my review it measured 8 x 17 mm. The patient was advised that this calculus has an extremely low likelihood of passing, and he thus underwent left ureteroscopy with laser lithotripsy on 05/25/2021. Some calculus fragments refluxed into the kidney, and visualization was poor. A ureteral stent was placed, and he now comes for stent removal and ureteroscopic removal of any remaining calculus fragments. Operative Findings: Several residual left renal pelvic fragments. Laser lithotripsy and stone basketing successfully performed. Description of Procedure: The patient was taken to the operating room and placed in the dorsolithotomy position, with legs supported in Santino stirrups. The external genitalia was prepped and draped sterilely. The 30 lens was used to introduce the 21-Turkish Barry cystoscopic sheath through the urethra and into the bladder under direct vision. The prostatic urethra showed evidence of significant lateral lobe enlargement. The mucosa showed evidence of electrocautery to the posterior vesical neck. The distal end of the left ureteral stent was visualized. This was grasped with grasping forceps and removed along with the cystoscope. A 0.035 inch Sensor wire was passed through the stent and up to the left renal pelvis. The Barry [employer] flexible ureteroscope was passed over the wire, up to the left proximal ureter. No calculi were seen within the ureter. The ureteroscope was advanced under direct vision up to the left renal pelvis. The calyces were examined. No calculus fragments were seen within the calyces. Within the renal pelvis were multiple small calculi seemingly held together by a collection of mucus. The 272 micron Holmium laser probe was passed through the ureteroscope, and lithotripsy was performed to make smaller the visualized calculus fragments. Once this was performed, a 1.9-Turkish nitinol basket was passed through the ureteroscope. The largest of the calculus fragments were basketed along with some of the adjacent mucus. The ureteroscope was withdrawn. The removed calculus fragments were examined, and none exceeding 1 mm in size. It was thus felt that further lithotripsy was unwarranted, and the procedure was terminated. The patient tolerated the procedure well and was taken to the recovery room in stable condition.
[2021-06-09 08:43] VITALS: TEMP 97.5
[2021-06-09 09:27] VITALS: RESP 16
--- NOTE | 2021-06-09 09:28 | FL ---
EXAMINATION TYPE: FL guidance operating room DATE OF EXAM: 06/09/2021 HISTORY: Fluoroscopy time 14 seconds of fluoroscopy provided. IMPRESSION: 1. Fluoroscopy time.
--- NOTE | 2021-06-09 09:36 | XR ---
EXAMINATION TYPE: XR KUB DATE OF EXAM: 06/09/2021 COMPARISON: 05/25/2021 HISTORY: Pain TECHNIQUE: One view abdominal series FINDINGS: The osseous structures are intact. The bowel gas pattern is nonspecific. Left-sided double-J uretera l stent noted. There appears to be a linear calcification with a diameter of 2 mm overlying the proxi mal left ureteral stent and overlying the left transverse process of L2. No additional suspicious rafael cifications noted. Previous noted large UPJ calcification appears to demonstrate near complete resolu tion. Cannot exclude a punctate 1 mm left renal calculus. Right renal outline obscured by bowel content. Arthropathy of the hips. Calcifications in the lower p jessica likely related to prostate. IMPRESSION: 1. Near complete resolution of left UPJ calcification. Linear 2 mm in diameter calcification overlyin g the proximal ureteral stent is suspected. Correlate clinically.
[2021-06-09 09:51] VITALS: BP 117/76; PULSE 74
== END 2021-06-09 10:21 | disposition home or self-care (01) ==
LOC: OR 05:59
PROVIDERS: ATTEND Urology
DX: N20.0 Calculus of kidney (principal); C61 Malignant neoplasm of prostate
CPT/HCPCS: 52353; 74018; C1769; J2250; J1100; J2405; J1956; J2001; J3010; J2370; J0330; J2704

== ENCOUNTER 2021-08-10 06:02 | Observation (INO) | payer MEDICARE ==
[2021-08-07 15:51] VITALS: BMI 28.0
--- NOTE | 2021-08-09 22:45 | P.GSHP ---
History of Present Illness H&P Date: 08/09/21 Chief Complaint: Prostate cancer The patient is a 70-year-old white male with an elevated PSA level. His most recent PSA level was 7.6. He recently underwent a prostate ultrasound with biopsies, revealing Jac 9 prostate cancer. His metastatic evaluation (which was negative) consisted of a bone scan, along with a CT scan which revealed a large left proximal ureteral calculus resulting in moderate left hydronephrosis. He has undergone ureteroscopic removal of the calculus. Alternative treatment options for the prostate cancer were reviewed with the patient and his family in detail. He has elected to undergo robotic-assisted laparoscopic prostatectomy (RALP) with bilateral pelvic lymphadenectomy. 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, prostate cancer, kidney stones History of Any Multi-Drug Resistant Organisms: None Reported Past Surgical History: Hernia Repair, Orthopedic Surgery Additional Past Surgical History / Comment(s): right shoulder surgery arthroscopy, surgery on right shoulder to cut end of bone and attach tendon, left ureteroscopy with laser lithotripsy 05/2021, bilateral cataracts Past Anesthesia/Blood Transfusion Reactions: Postoperative Nausea & Vomiting (PONV) Additional Past Anesthesia/Blood Transfusion Reaction / Comment(s): severe PONV Smoking Status: Never smoker - Past Family History Father Family Medical History: Cancer Medications and Allergies Home Medications Medication Instructions Recorded Confirmed Type Donepezil [Aricept] 10 mg PO DAILY 08/17/14 08/07/21 History Pantoprazole Sodium [Protonix] 40 mg PO QAM 08/17/14 08/07/21 History amantadine HCL [Symmetrel] 100 mg PO BID 08/17/14 08/07/21 History lamoTRIgine [LaMICtal] 25 mg PO BID 08/17/14 08/07/21 History Rosuvastatin Calcium [Crestor] 5 mg PO W/LUNCH 02/20/21 08/07/21 History Sertraline [Zoloft] 100 mg PO QAM 02/20/21 08/07/21 History Tylenol(Dose Unknown) 1 tab PO DIRECTED PRN 08/07/21 08/07/21 History Allergies Allergy/AdvReac Type Severity Reaction Status Date / Time aspirin Allergy NAUSEA Verified 08/07/21 15:40 /VOMITING Penicillins Allergy Rash/Hives Verified 08/07/21 15:40 NSAIDS (Non-Steroidal AdvReac Unknown Nausea & Verified 08/07/21 15:40 Anti-Inflamma Vomiting-UPSET STOMACH Surgical - Exam - General well developed, well nourished, no distress - Neck no masses, trachea midline - Respiratory normal respiratory effort - Abdomen Abdomen: soft, non tender, no guarding, no rigid, no rebound Hernia: umbilical - Genitourinary normal penis with no external lesions, testicles non-tender - Rectum Rectum: normal sphincter tone, no masses, other (Prostate enlarged, left mid gland nodule) - Psychiatric oriented to time, oriented to person, oriented to place, speech is normal, memory intact Results - Imaging CT scan - abdomen: report reviewed, image reviewed CT scan - pelvis: report reviewed, image reviewed Assessment and Plan (1) Malignant neoplasm of prostate Status: Acute Code(s): C61 - MALIGNANT NEOPLASM OF PROSTATE SNOMED Code(s): 949491922 Plan: Robotic-assisted laparoscopic prostatectomy (RAL P) with bilateral pelvic lymphadenectomy. The procedure has been reviewed in detail with the patient. He is aware of potential risks, which include anesthesia, bleeding, infection, intestinal injury (which may require a colostomy), ureteral injury, swelling of the penis post-operatively, bladder neck contracture, urethral stricture, lymphocele, post-operative ileus, thrombophlebitis, wound separation, and possible urinary fistula. In addition, I went into great detail concerning the possibility of postop urinary incontinence, which may fail to resolve. He is not a candidate for a nerve sparing procedure. He has also been advised of the possibility of treatment failure, and the possible need for adjuvant therapy.
[~2021-08-10 06:02] MED LIST changes: -DEXAMETHASONE SOD PHOSPHATE 4 MG/ML 1 ML VIAL IV ONE; +HEPARIN SODIUM,PORCINE/PF 5,000 UNIT/0.5 ML SYRINGE SQ PRN; -HYDROmorphone 0.5 MG/0.5 ML SYRINGE IVP PRN; -LACTATED RINGERS 1,000 ML IV SCH; -LIDOCAINE 1% (10MG/ML) FOR IV START INTRADERMA PRN; -MIDAZOLAM 2 MG/2 ML VIAL IV PRN; -ONDANSETRON 4 MG/2 ML VIAL IVP ONE
[2021-08-10] MEDS ORDERED: DEXAMETHASONE SOD PHOSPHATE 4 MG/ML 1 ML VIAL IV ONE (06:21)
[2021-08-10] MEDS ORDERED: HYDROmorphone 0.5 MG/0.5 ML SYRINGE IVP PRN (06:21)
[2021-08-10] MEDS ORDERED: ONDANSETRON 4 MG/2 ML VIAL IVP ONE (06:21)
[2021-08-10] MEDS: LACTATED RINGERS 1,000 ML IV SCH ×3 (06:45→20:07)
[2021-08-10] MEDS ORDERED: LIDOCAINE 1% (10MG/ML) FOR IV START INTRADERMA ONE ×2 (06:45→07:00)
[2021-08-10] MEDS ORDERED: MIDAZOLAM 2 MG/2 ML VIAL IV ONE (07:17)
[2021-08-10] MEDS ORDERED: SODIUM CHLORIDE 0.9% (PF) 10 ML VIAL ONE (07:37)
[2021-08-10] MEDS ORDERED: DEXAMETHASONE SOD PHOSPHATE 4 MG/ML 1 ML VIAL ONE (07:37)
[2021-08-10] MEDS ORDERED: PROPOFOL 10 MG/ML 20 ML VIAL IV ONE (07:37)
[2021-08-10] MEDS ORDERED: SUCCINYLCHOLINE CHLORIDE 100 MG/5 ML SYR IV ONE (07:37)
[2021-08-10] MEDS ORDERED: GLYCOPYRROLATE 0.2 MG/ML 2 ML VIAL ONE (07:37)
[2021-08-10] MEDS ORDERED: fentaNYL (PF) 50 MCG/ML 2 ML AMP ONE (07:37)
[2021-08-10] MEDS ORDERED: LIDOCAINE 2% INJ 20 MG/ML (2 ML VIAL) ONE (07:37)
[2021-08-10] MEDS ORDERED: HYDROmorphone (PF) 1 MG/ML ONE (07:37)
[2021-08-10] MEDS ORDERED: ROCURONIUM 10 MG/ML (5 ML VIAL) IV ONE (07:37)
[2021-08-10] MEDS ORDERED: ePHEDrine 50 MG/ML 1 ML VIAL ONE (07:37)
[2021-08-10] MEDS ORDERED: ESMOLOL 100 MG/10 ML VIAL ONE (07:37)
[2021-08-10] MEDS ORDERED: METOPROLOL TARTRATE 5 MG/5 ML VIAL IVP ONE ×3 (07:37→13:30)
[2021-08-10] MEDS ORDERED: PHENYLEPHRINE-0.9% NACL SYG 1,000 MCG/10 ML SYRINGE ONE (07:37)
[2021-08-10] MEDS ORDERED: ROPIVACAINE 5 MG/ML 30 ML VIAL ONE (07:37)
[2021-08-10] MEDS ORDERED: NEOSTIGMINE 1 MG/ML 10 ML VIAL ONE (07:37)
[2021-08-10] MEDS ORDERED: LACTATED RINGERS 1,000 ML IV ONE ×3 (07:41→15:17)
--- NOTE | 2021-08-10 08:02 | P.ANPRN ---
Procedure Note - Anesthesia - Nerve Block Performed Bilateral Erector Spinae Single Time Out Performed: Yes ([id number]) Date of Procedure: 08/10/21 Procedure Start Time: Procedure Stop Time: Location of Patient: PreOp Indication: Acute Post-Operative Pain, Requested by Surgeon Sedation Type: Sedate with meaningful contact maintained Preparation: Sterile Prep Position: Prone Catheter: None Needle Types: Pajunk Needle Gauge: 20 Ultrasound used to visualize needle placement: Yes Ultrasound used to observe medication spread: Yes Injectate: 0.5% Ropivacaine (see comment for volume) (Block solution containing 15 mL of 0.5% ropivacaine mixed with 10 ML of preservative-free saline, and 4 MG of dexamethasone for each site) Blood Aspirated: No Pain Paresthesia on Injection Noted: No Resistance on Injection: Normal Image Stored and Saved: Yes Events: Uneventful and Well Tolerated
[2021-08-10] MEDS ORDERED: BUPIVACAINE (PF) 0.25% 30 ML VIAL SQ ONE (08:14)
[2021-08-10 14:55] LABS: Glucose,Whole Blood 166 mg/dL (75-99)
[2021-08-10 14:55] LABS: Glucose,Whole Blood 157 mg/dL (75-99)
[2021-08-10] MEDS ORDERED: HYDROmorphone 0.5 MG/0.5 ML SYRINGE IVP ONE (18:13)
--- NOTE | 2021-08-10 18:36 | P.OP ---
Date of Procedure: 08/10/21 Preoperative Diagnosis: Adenocarcinoma the prostate Postoperative Diagnosis: Same Procedure(s) Performed: Robotic-assisted laparoscopic prostatectomy RALP) with bilateral pelvic lymphadenectomy, umbilical hernia repair Anesthesia: JOE Surgeon: Theo Esteves Work Measurement Engineer #1: Lorelei Banda Estimated Blood Loss (ml): 100 IV fluids (ml): 1,300 Pathology: other (Prostate, seminal vesicles, pelvic lymph nodes) Condition: stable Disposition: PACU Indications for Procedure: The patient is a 70-year-old white male with an elevated PSA level. His most recent PSA level was 7.6. He recently underwent a prostate ultrasound with biop sies, revealing Jac 9 prostate cancer. His metastatic evaluation (which was negative) consisted of a bone scan, along with a CT scan which revealed a large left proximal ureteral calculus resulting in moderate left hydronephrosis. He has undergone ureteroscopic removal of the calculus. Alternative treatment options for the prostate cancer were reviewed with the patient and his family in detail. He has elected to undergo robotic-assisted laparoscopic prostatectomy (RALP) with bilateral pelvic lymphadenectomy. Operative Findings: No evidence of extraprostatic disease. Description of Procedure: The patient was taken in the operating room and placed in the supine position. He was carefully positioned on a beanbag for stability. His umbilical hernia was reduced. The abdomen and external genitalia were prepped and draped sterilely. A Levine catheter was inserted. The Veress needle was passed through the anterior abdominal wall immediately cephalad to the umbilicus, and insufflation was performed to a pressure of 20 mm Hg. Once insufflation was performed, the Veress needle was removed and a supraumbilical incision was made, through which an 8 mm camera port was placed. Under camera guidance, 3 8 mm robotic ports were placed, 2 on the left and one on the right. A 12 mm port was placed on the right lateral side for use as an fws faculty assistant port. A 5 mm port was placed to the right of the camera port for suction. The patient was placed in Trendelenburg position, and docking was then performed to the da Rose system utilizing a 4-arm approach. The abdomen was examined. The sigmoid colon was mobilized out of the pelvis. The peritoneum was incised lateral to the medial umbilical ligaments bilaterally, exposing the pubis. The peritoneum was then incised across the midline, allowing the bladder flap to be taken down. The endopelvic fascia was opened bilaterally, and muscular attachments from the urogenital diaphragm were swept away from the prostate. Extended bilateral pelvic lymphadenectomies were performed in the standard fashion. The peritoneal incisions were extended in a cephalad direction, and the vas deferens were divided bilaterally. Margins of dissection were the bifurcation of the iliac vessels proximally, the circumflex iliac vein distally, the genitofemoral nerve laterally, and the obturator nerve medially. A combination of sharp and blunt dissection was used. Care was taken to avoid any neurovascular injury, and the use of monopolar electrocautery was avoided immediately adjacent to neurovascular structures. The lymphatic package was clipped distally. No enlarged lymph nodes were encountered. There were no complications. The vesical neck was incised transversely, down to the lumen. The Levine catheter was brought out through the anterior vesical neck incision and was used for traction. The posterior aspect of the vesical neck was incised, such that the full-thickness of the vesical neck was divided. The anterior layer of the Denonvilliers fascia was incised, exposing the vas deferens. Each were isolated and divided. Next, each of the seminal vesicles were dissected away from adjacent tissues, and vascular attachments were cauterized and divided. The posterior leaf of Denonvilliers fascia was incised transversely, allowing entry into the plane between the prostate and rectum. With lateral spreading, this plane was developed down to the apex. This exposed the lateral vascular pedicles bilaterally. The da Rose vessel sealer was used to ligate and divide the vascular pedicles in an antegrade fashion, down to the apex. The left neurovascular bundle was widely excised. The remaining apical attachments were swept away from the prostate. The dorsal venous complex was incised, as well as periurethral tissue. At this point, only the urethra remained intact. This was transected immediately distal to the prostatic apex using cold scissors. The specimen was placed within a specimen bag. The dorsal venous complex was sutured using a V-Loc suture in a running fashion. A second V-Loc suture was then used to place the Andrew stitch, incorporating the rhabdosphincter and the edge of Denonvilliers fascia. This allowed the bladder to be taken down to the urethra, leaving the vesical neck immediately adjacent to the urethra. The vesicourethral anastomosis was then performed using a V-Loc suture in a running fashion. After completing the anastomosis, an 18-Belarusian Levine catheter was placed and approximately 150 mL of 0.9 normal salin e were instilled into the bladder. No extravasation of irrigant from the vesicourethral anastomosis was noted. A small amount of oozing was noted from the vascular pedicles, so Surgicel was placed bilaterally. Tisseel was sprayed into the pelvis over the vascular pedicles, dorsal vein, and vesicourethral anastomosis. The patient was returned to the supine position. Undocking was performed, and the specimen bag sutures were passed through the camera port. After removing all the ports and allowing all of the CO2 to be released from the peritoneal cavity, the camera port incision was enlarged to allow removal of the surgical specimen. The fascia was incised inferiorly down to the fascial defect. The hernia sac was reduced, and the fascia of this incision was then closed using 0 PDS suture in a running fashion. Each of the skin incisions were then closed using 4-0 Monocryl suture in a subcuticular fashion. Marcaine was injected at each of the incision sites. Dermabond was applied to each incision. The Levine catheter was connected to gravity drainage. All sponge and needle counts were correct. The patient tolerated the procedure well was taken to the recovery room in stable condition.
[2021-08-10] MEDS: HYDROmorphone 1 MG/ML 1 ML SYRINGE IVP PRN ×2 (20:04→23:03)
[2021-08-10] MEDS: DEXTROSE 5%-0.45% NACL 1,000 ML IV SCH (20:06)
[2021-08-10] MEDS: HEPARIN SODIUM,PORCINE/PF 5,000 UNIT/0.5 ML SYRINGE SQ SCH (21:06)
[2021-08-10] MEDS: lamoTRIgine 25 MG TAB PO SCH (21:06)
[2021-08-11] MEDS: HYDROmorphone 1 MG/ML 1 ML SYRINGE IVP PRN ×4 (03:39→17:48)
[2021-08-11] MEDS: DEXTROSE 5%-0.45% NACL 1,000 ML IV SCH ×4 (03:41→23:37)
[2021-08-11] MEDS: LACTATED RINGERS 1,000 ML IV SCH ×2 (06:03→22:54)
--- NOTE | 2021-08-11 07:11 | P.CRDCN ---
History of Present Illness Consult date: 08/11/21 History of present illness: The patient is a pleasant 70-year-old gentleman with a past medical history significant for dyslipidemia was on statin as an outpatient was admitted to the hospital yesterday and underwent an elective procedure consistent of robotic- assisted laparoscopic prostatectomy with bilateral pelvic lymphadenectomy and umbilical hernia repair. The surgery itself was uneventful. During the recovery the patient was found to be tachycardic with an episode lasted for few minutes only. I was able to review the rhythm strip of that and that revealed what it seems to be in SVT. An EKG was performed right after that and revealed narrow complex tachycardia with short RP tachycardia noted. Subsequently the patient was converted to normal sinus mechanism. Apparently that episodes happen urine recovery. Before that and as an outpatient the patient had no symptoms of any pain in the chest or shortness of breath or any feeling of heart racing or fluttering or any presyncope or syncope. 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 He is somewhat poor historian. 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, prostate cancer, kidney stones History of Any Multi-Drug Resistant Organisms: None Reported Past Surgical History: Hernia Repair, Orthopedic Surgery Additional Past Surgical History / Comment(s): right shoulder surgery arthroscopy, surgery on right shoulder to cut end of bone and attach tendon, left ureteroscopy with laser lithotripsy 05/2021, bilateral cataracts Past Anesthesia/Blood Transfusion Reactions: Postoperative Nausea & Vomiting (PONV) Additional Past Anesthesia/Blood Transfusion Reaction / Comment(s): severe PONV Smoking Status: Never smoker - Past Family History Father Family Medical History: Cancer Medications and Allergies Home Medications Medication Instructions Recorded Confirmed Type Donepezil [Aricept] 10 mg PO DAILY 08/17/14 08/07/21 History Pantoprazole Sodium [Protonix] 40 mg PO QAM 08/17/14 08/07/21 History amantadine HCL [Symmetrel] 100 mg PO BID 08/17/14 08/07/21 History lamoTRIgine [LaMICtal] 25 mg PO BID 08/17/14 08/07/21 History Rosuvastatin Calcium [Crestor] 5 mg PO W/LUNCH 02/20/21 08/07/21 History Sertraline [Zoloft] 100 mg PO QAM 02/20/21 08/07/21 History Tylenol(Dose Unknown) 1 tab PO DIRECTED PRN 08/07/21 08/07/21 History Allergies Allergy/AdvReac Type Severity Reaction Status Date / Time aspirin Allergy NAUSEA Verified 08/07/21 15:40 /VOMITING Penicillins Allergy Rash/Hives Verified 08/07/21 15:40 NSAIDS (Non-Steroidal AdvReac Unknown Nausea & Verified 08/07/21 15:40 Anti-Inflamma Vomiting-UPSET STOMACH Physical Exam Vitals: Vital Signs Temp Pulse Pulse Resp BP Pulse Ox 08/11/21 04:36 98.3 F 68 16 128/75 94 L 08/10/21 21:59 68 110/74 93 L 08/10/21 20:59 73 108/70 93 L 08/10/21 20:29 70 104/67 92 L 08/10/21 19:59 94 110/73 94 L 08/10/21 19:44 64 119/73 08/10/21 19:29 79 128/82 92 L 08/10/21 19:14 69 116/76 90 L 08/10/21 18:59 98.2 F 70 16 112/70 91 L 08/10/21 18:00 70 16 127/78 97 08/10/21 17:05 77 16 125/74 97 08/10/21 16:25 73 16 121/73 99 08/10/21 15:50 71 16 122/71 96 08/10/21 15:20 75 17 136/73 94 L 08/10/21 07:30 59 L 16 124/77 95 Intake and Output 08/10/21 08/11/21 08/11/21 22:59 06:59 14:59 Intake Total 357 1240 Output Total 700 1900 Balance -343 -660 Intake: Intake, IV Titration 1000 Amount Dextrose 5%-0.45% NaCl 1, 1000 000 ml @ 125 mls/hr IV . Q8H [facility] Rx#:[id number] Oral 357 240 Output: Urine 700 1900 Uretheral (Levine) 1900 Other: Voiding Method Indwelling Catheter - Constitutional General appearance: no acute distress - Respiratory Respiratory: bilateral: diminished - Cardiovascular Rhythm: regular Heart sounds: normal: S1, S2 Abnormal Heart Sounds: systolic murmur Results Current Medications Generic Name Dose Route Start Last Admin Trade Name Freq PRN Reason Stop Dose Admin Amantadine HCl 100 mg 08/10/21 21:00 08/10/21 21:06 Amantadine Hcl 100 Mg Cap PO 100 mg BID [facility] Administration Atorvastatin Calcium 10 mg 08/11/21 12:30 Atorvastatin 10 Mg Tab PO W/LUNCH [facility] Donepezil HCl 10 mg 08/11/21 09:00 Donepezil 10 Mg Tab PO DAILY [facility] Heparin Sodium (Porcine) 5,000 unit 08/10/21 21:00 08/10/21 21:06 Heparin Sodium,Porcine/Pf 5,000 Unit/0.5 Ml Syringe SQ 5,000 unit Q12HR [facility] Administration Hydromorphone HCl 1 mg 08/10/21 18:29 08/11/21 03:39 Hydromorphone 1 Mg/Ml 1 Ml Syringe IVP 1 mg Q2HR PRN Administration Severe Pain Lactated Ringer's 1,000 mls @ 20 mls/hr 08/10/21 06:21 08/11/21 06:03 Lactated Ringers IV 09/09/21 06:22 Not Given .Q24H [facility] Dextrose/Sodium Chloride 1,000 mls @ 125 mls/hr 08/10/21 16:00 08/11/21 03:41 Dextrose 5%-1/2ns Iv Soln IV 09/09/21 16:01 125 mls/hr .Q8H [facility] Administration Lamotrigine 25 mg 08/10/21 21:00 08/10/21 21:06 Lamotrigine 25 Mg Tab PO 25 mg BID [facility] Administration Metoprolol Tartrate 12.5 mg 08/11/21 09:00 Metoprolol Tartrate 12.5 Mg Tab PO BID [facility] Pantoprazole Sodium 40 mg 08/11/21 09:00 Pantoprazole 40 Mg Tablet PO QAM [facility] Sertraline HCl 100 mg 08/11/21 09:00 Sertraline 100 Mg Tab PO QAM [facility] Intake and Output 08/10/21 08/11/21 08/11/21 22:59 06:59 14:59 Intake Total 357 1240 Output Total 700 1900 Balance -343 -660 Intake: Intake, IV Titration 1000 Amount Dextrose 5%-0.45% NaCl 1, 1000 000 ml @ 125 mls/hr IV . Q8H [facility] Rx#:[id number] Oral 357 240 Output: Urine 700 1900 Uretheral (Levine) 1900 Other: Voiding Method Indwelling Catheter Assessment and Plan Assessment: Assessment #1 status post elective procedure. The patient underwent laparoscopic prostatectomy #2 brief episode of narrow complex tachycardia/short RP tachycardia noted. That was noted on recovery #3 dyslipidemia Plan #1 the patient currently is in sinus rhythm and he is hemodynamically stable as well as he is asymptomatic #2 start the patient on small dose of beta aubrey was metoprolol tartrate #3 obtain an echocardiogram was Doppler. He does have a systolic murmur on examination #4 obtain TSH free T4 #5 follow-up with the patient
[2021-08-11] MEDS: SERTRALINE 100 MG TAB PO SCH (08:04)
[2021-08-11] MEDS: PANTOPRAZOLE 40 MG TABLET PO SCH (08:04)
[2021-08-11] MEDS: HEPARIN SODIUM,PORCINE/PF 5,000 UNIT/0.5 ML SYRINGE SQ SCH ×2 (08:04→20:08)
[2021-08-11] MEDS: DONEPEZIL 10 MG TAB PO SCH (08:04)
[2021-08-11] MEDS: METOPROLOL TARTRATE 12.5 MG TAB PO SCH ×2 (08:04→20:08)
[2021-08-11] MEDS: ATORVASTATIN 10 MG TAB PO SCH (08:04)
[2021-08-11] MEDS: lamoTRIgine 25 MG TAB PO SCH ×2 (08:05→20:08)
--- NOTE | 2021-08-11 08:23 | P.PN ---
Subjective Progress Note Date: 08/11/21 Principal diagnosis: POD #1, s/p RALP The patient had an uneventful night. He reports incisional discomfort. He is tolerating liquids. He was noted to be tachycardic in the recovery room and was seen by Dr. Pisano. Clinical impression is narrow complex tachycardia with short RP tachycardia. He denies chest pain. Objective - Vital Signs Vital signs: Vital Signs Temp 98.3 F 08/11/21 04:36 Pulse 68 08/11/21 04:36 Resp 16 08/11/21 04:36 BP 128/75 08/11/21 04:36 Pulse Ox 94 L 08/11/21 04:36 FiO2 Intake & Output 08/10/21 08/11/21 08/11/21 18:59 06:59 18:59 Intake Total 2300 1597 Output Total 1025 1900 Balance 1275 -303 Intake: IV 2300 Intake, IV Titration 1000 Amount Dextrose 5%-0.45% NaCl 1, 1000 000 ml @ 125 mls/hr IV . Q8H [facility] Rx#:[id number] Oral 597 Output: Urine 875 1900 Uretheral (Levine) 1900 Estimated Blood Loss 150 Other: Voiding Method Indwelling Catheter - Constitutional General appearance: Present: average body habitus, cooperative, no acute distress - Gastrointestinal Gastrointestinal Comment(s): Soft, non-distended. Incisions clean, dry, and intact. Levine catheter is draining clear yellow urine. - Psychiatric Psychiatric: Present: A&O x's 3 - Labs Labs: Abnormal Lab Results - Last 24 Hours (Table) 08/10/21 08/10/21 Range/Units 12:48 12:49 POC Glucose (mg/dL) 157 H 166 H (75-99) mg/dL Assessment and Plan (1) Malignant neoplasm of prostate Current Visit: No Status: Acute Code(s): C61 - MALIGNANT NEOPLASM OF PROSTATE SNOMED Code(s): 892545731 Plan: The patient is urologically stable for discharge home. Disposition per cardiology. In the meantime, diet will be advanced and ambulation is encouraged.
--- NOTE | 2021-08-11 13:16 | CA ---
Transthoracic Echo Report Name: Uriel Watts Age: 70 Gender: M : 1950 Exam Date: 08/11/2021 07:34 Exam Location: [place] [facility] Ht (in): 69 Wt (lb): 197 Ordering Physician: Bowen Pisano MD ([id number]) Attending/Referring Phys: Blow Mold Operator Esther Noble RDCS Procedure CPT: Indications: svt Cardiac Hx: Technical Quality: Fair Contrast 1: Total Dose (mL): Contrast 2: Total Dose (mL): MEASUREMENTS (Male / Female) Normal Values 2D ECHO LV Diastolic Diameter PLAX 4.1 cm 4.2 - 5.9 / 3.9 - 5.3 cm LV Systolic Diameter PLAX 2.5 cm IVS Diastolic Thickness 1.2 cm 0.6 - 1.0 / 0.6 - 0.9 cm LVPW Diastolic Thickness 1.1 cm 0.6 - 1.0 / 0.6 - 0.9 cm LV Relative Wall Thickness 0.5 RV Internal Dim ED PLAX 3.4 cm LA Systolic Diameter LX 3.2 cm 3.0 - 4.0 / 2.7 - 3.8 cm LA Volume 63.2 cm??? 18 - 58 / 22 - 52 cm??? M-MODE Aortic Root Diameter MM 3.3 cm MV E Point Septal Separation 0.3 cm AV Cusp Separation MM 1.6 cm DOPPLER AV Peak Velocity 144.8 cm/s AV Peak Gradient 8.4 mmHg MV Area PHT 3.5 cm??? Mitral E Point Velocity 83.5 cm/s Mitral A Point Velocity 86.1 cm/s Mitral E to A Ratio 1.0 MV Deceleration Time 217.1 ms MV E' Velocity 7.3 cm/s Mitral E to MV E' Ratio 11.4 TR Peak Velocity 225.0 cm/s TR Peak Gradient 20.3 mmHg Right Ventricular Systolic Press 25.3 mmHg FINDINGS Left Ventricle Left ventricular ejection fraction is estimated at 60-65 %. Left ventricular cavity size normal. Borderline left ventricular hypertrophy. Right Ventricle Mild right ventricular dilatation. Right ventricular systolic pressure within normal limits. Right Atrium Normal right atrial size. Left Atrium Mildly increased left atrial volume. Mildly increased left atrial area. No evidence for an atrial septal defect. Mitral Valve Structurally normal mitral valve. No mitral stenosis, regurgitation or prolapse. Aortic Valve Diffuse thickening (sclerosis) of the aortic valve cusps without reduced excursion. Tricuspid Valve Trace tricuspid regurgitation. Pulmonic Valve Trace pulmonic regurgitation. Pericardium Normal pericardium. Aorta Normal size aortic root and proximal ascending aorta. CONCLUSIONS Normal left ventricular dimension and systolic function Previewed by: Dr. Bowen Pisano MD (Electronically Signed) Final Date: 11 Aug 2021 13:15
[2021-08-12] MEDS: HYDROmorphone 1 MG/ML 1 ML SYRINGE IVP PRN ×2 (01:15→12:52)
[2021-08-12] MEDS: DEXTROSE 5%-0.45% NACL 1,000 ML IV SCH (08:01)
[2021-08-12 08:14] VITALS: PULSE 82
[2021-08-12] MEDS: lamoTRIgine 25 MG TAB PO SCH (08:15)
[2021-08-12] MEDS: HEPARIN SODIUM,PORCINE/PF 5,000 UNIT/0.5 ML SYRINGE SQ SCH (08:15)
[2021-08-12] MEDS: SERTRALINE 100 MG TAB PO SCH (08:15)
[2021-08-12] MEDS: METOPROLOL TARTRATE 12.5 MG TAB PO SCH (08:15)
[2021-08-12] MEDS: PANTOPRAZOLE 40 MG TABLET PO SCH (08:15)
[2021-08-12] MEDS: DONEPEZIL 10 MG TAB PO SCH (08:18)
--- NOTE | 2021-08-12 11:56 | P.PN ---
Subjective Progress Note Date: 08/12/21 Patient is seen resting comfortably in bed today with no complaints of chest pain, shortness of breath, or palpitations. Patient has not had any further episodes of SVT. His echocardiogram was reviewed he has a normal LV function. Patient is tolerating the beta aubrey without adverse effects. Patient is clear for discharge Objective - Vital Signs Vital signs: Vital Signs Temp 98.5 F 08/12/21 08:13 Pulse 82 08/12/21 08:13 Resp 18 08/12/21 05:00 BP 128/83 08/12/21 08:13 Pulse Ox 93 L 08/12/21 08:13 FiO2 Intake & Output 08/11/21 08/12/21 08/12/21 18:59 06:59 18:59 Output Total 1500 1800 1300 Balance -1500 -1800 -1300 Output: Urine 1500 1800 1300 Other: Voiding Method Indwelling Catheter Indwelling Catheter - Exam PHYSICAL EXAM: VITAL SIGNS: Reviewed. GENERAL: Well-developed in no acute distress. HEENT: Head is normocephalic. Pupils are equal, round. Sclerae anicteric. Mucous membranes of the mouth are moist. NECK: Supple. No JVD or thyromegaly RESPIRATORY: Respirations even and unlabored. Lungs diminished to auscultation bilaterally. CARDIO: Regular rate and rhythm. S1 and S2 heard. No murmur or gallops. EXTREMITIES: Normal range of motion. No clubbing or cyanosis. Peripheral pulses intact. Negative for bilateral lower extremity edema NEURO: Orientated to person, time, mood is appropriate Assessment and Plan Assessment: Proximal supraventricular tachycardia status post elective procedure. The patient underwent laparoscopic prostatectomy brief episode of narrow complex tachycardia/short RP tachycardia noted. That was noted on recovery dyslipidemia Plan: Patient remains in sinus rhythm and is hemodynamically stable as well as asymptomatic Continue with all current cardiac medications he is tolerating beta aubrey His echocardiogram was reviewed Patient is cleared for discharge
[2021-08-12] MEDS: ATORVASTATIN 10 MG TAB PO SCH (12:46)
--- NOTE | 2021-08-12 14:04 | P.DS ---
Providers Date of admission: 08/11/21 14:56 Expected date of discharge: 08/12/21 Attending physician: Theo Esteves Consults: 08/10/21 15:25 Consult Physician Urgent Consulting Provider: Nicole Segura Consult Reason/Comments: Post op SVT/Tachycardia Do you want consulting provider notified?: Yes Primary care physician: Christianne Hartman MD - Discharge Diagnosis(es) (1) Malignant neoplasm of prostate Current Visit: No Status: Acute Hospital Course: On the day of admission, the patient underwent an uncomplicated robotic-assisted laparoscopic prostatectomy with bilateral pelvic lymphadenectomy and umbilical hernia repair. In the recovery room, he was noted to be tachycardic. Cardiology was consulted, and he was seen by Dr. Pisano. He was diagnosed with narrow complex tachycardia with short RP tachycardia and placed on Lopressor. He had no further episodes of SVT, and his echocardiogram revealed normal LV function. The patient experienced more incisional discomfort than is typical, likely because of the umbilical hernia repair. At the time of discharge, he felt that his incisional discomfort was controlled with analgesics. He was tolerating diet. He had ambulated in the saleem at least once. He was afebrile with stable vital signs. The abdomen was soft and nondistended. Incisions were clean, dry, and intact. The Levine catheter was draining clear yellow urine. Procedures: Robotic-assisted laparoscopic prostatectomy (RALP) with bilateral pelvic lymphadenectomy and umbilical hernia repair in 08/10/2021. Patient Condition at Discharge: Good Plan - Discharge Summary Discharge Rx Participant: Yes New Discharge Prescriptions: New Ketorolac [Toradol] 10 mg PO Q6HR PRN #12 tab PRN Reason: Mild To Moderate Pain Metoprolol Tartrate [Lopressor] 12.5 mg PO BID 30 Days #60 tablet Ciprofloxacin HCl [Cipro] 250 mg PO Q12HR #6 tablet oxyCODONE-APAP 7.5-325MG [Percocet 7.5-325 mg] 1 tab PO Q6HR PRN 2 Days #6 tab PRN Reason: Severe Pain No Action lamoTRIgine [LaMICtal] 25 mg PO BID Donepezil [Aricept] 10 mg PO DAILY amantadine HCL [Symmetrel] 100 mg PO BID Pantoprazole Sodium [Protonix] 40 mg PO QAM Tylenol(Dose Unknown) 1 tab PO DIRECTED PRN PRN Reason: Pain Sertraline [Zoloft] 100 mg PO QAM Rosuvastatin Calcium [Crestor] 5 mg PO W/LUNCH Discharge Medication List Donepezil [Aricept] 10 mg PO DAILY 08/17/14 [History] Pantoprazole Sodium [Protonix] 40 mg PO QAM 08/17/14 [History] amantadine HCL [Symmetrel] 100 mg PO BID 08/17/14 [History] lamoTRIgine [LaMICtal] 25 mg PO BID 08/17/14 [History] Rosuvastatin Calcium [Crestor] 5 mg PO W/LUNCH 02/20/21 [History] Sertraline [Zoloft] 100 mg PO QAM 02/20/21 [History] Tylenol(Dose Unknown) 1 tab PO DIRECTED PRN 08/07/21 [History] Ciprofloxacin HCl [Cipro] 250 mg PO Q12HR #6 tablet 08/12/21 [Rx] Ketorolac [Toradol] 10 mg PO Q6HR PRN #12 tab 08/12/21 [Rx] Metoprolol Tartrate [Lopressor] 12.5 mg PO BID 30 Days #60 tablet 08/12/21 [Rx] oxyCODONE-APAP 7.5-325MG [Percocet 7.5-325 mg] 1 tab PO Q6HR PRN 2 Days #6 tab 08/12/21 [Rx] Follow up Appointment(s)/Referral(s): Theo Esteves MD [STAFF PHYSICIAN] - 08/21/21 Bowen Pisano MD [STAFF PHYSICIAN] - 1 Week Activity/Diet/Wound Care/Special Instructions: Discharge home with Levine catheter. OK to shower. Diet as tolerated. No lifting, driving, or strenuous activity. Begin taking ciprofloxacin one day prior to follow-up appointment. Please reassure patient that it is common to experience the following: Hematuria, urinary leakage around the catheter, abdominal wall bruising, and penoscrotal swelling. Discharge Disposition: HOME SELF-CARE
[2021-08-12 15:29] VITALS: RESP 16; TEMP 98.2
[2021-08-12 15:30] VITALS: BP 116/72
== END 2021-08-12 15:15 | disposition home or self-care (01) ==
LOC: OR 06:02 → 5NMEDONC 17:51 → OBSVTOIN 08-11 14:56 → INTOOBSV 08-11 14:56 → OR 08-11 14:56 → UNDODISOB 08-12 15:15
PROVIDERS: ADMIT Urology; ATTEND Urology
DX: C61 Malignant neoplasm of prostate (principal); K21.9 Gastro-esophageal reflux disease without esophagitis; I47.1 Supraventricular tachycardia; R41.3 Other amnesia; E78.5 Hyperlipidemia, unspecified; M19.90 Unspecified osteoarthritis, unspecified site; R12 Heartburn; N52.9 Male erectile dysfunction, unspecified; Z87.820 Personal history of traumatic brain injury; Z87.442 Personal history of urinary calculi; Z98.890 Other specified postprocedural states; Z97.2 Presence of dental prosthetic device (complete) (partial); Z98.42 Cataract extraction status, left eye; Z98.41 Cataract extraction status, right eye; Z80.9 Family history of malignant neoplasm, unspecified; Z79.899 Other long term (current) drug therapy; Z88.6 Allergy status to analgesic agent; Z88.0 Allergy status to penicillin; K42.9 Umbilical hernia without obstruction or gangrene
CPT/HCPCS: 38571; 49585; 55866; S2900; 84443; 86850; 86900; 86901; 88307; 88309; 88341; 88342; 93306

== ENCOUNTER 2021-08-20 12:37 | Inpatient (IN) | payer MEDICARE ==
[2021-08-20] MEDS ORDERED: ONDANSETRON 4 MG/2 ML VIAL IVP STA (12:55)
[2021-08-20] MEDS ORDERED: PANTOPRAZOLE 40 MG/10 ML VIAL IVP STA (12:55)
--- NOTE | 2021-08-20 12:59 | ED ---
General Adult HPI - General Chief complaint: Weakness Stated complaint: post op pain, vomiting Time Seen by Provider: 08/20/21 12:48 Source: patient, family, RN notes reviewed Mode of arrival: wheelchair Limitations: altered mental status - History of Present Illness Initial comments: Patient is a pleasant 70-year-old male presenting to the emergency Department with generalized fatigue. Patient has been having some leg swelling over the past couple of days however this has improved. There is also some swelling of the genitals which is also improved. Patient is having some swelling of his abdomen here no abdominal pain however is having mild low back discomfort. Patient denies dyspnea however is concerned that patient appears to be short of breath with exertion. She states patient may be confused however unable to further explain that. Confusion appears to be related more to fatigue and drowsiness. - Related Data Home Medications Medication Instructions Recorded Confirmed Donepezil [Aricept] 10 mg PO DAILY 08/17/14 08/07/21 Pantoprazole Sodium [Protonix] 40 mg PO QAM 08/17/14 08/07/21 amantadine HCL [Symmetrel] 100 mg PO BID 08/17/14 08/07/21 lamoTRIgine [LaMICtal] 25 mg PO BID 08/17/14 08/07/21 Rosuvastatin Calcium [Crestor] 5 mg PO W/LUNCH 02/20/21 08/07/21 Sertraline [Zoloft] 100 mg PO QAM 02/20/21 08/07/21 Tylenol(Dose Unknown) 1 tab PO DIRECTED PRN 08/07/21 08/07/21 Previous Rx's Medication Instructions Recorded Ciprofloxacin HCl [Cipro] 250 mg PO Q12HR #6 tablet 08/12/21 Ketorolac [Toradol] 10 mg PO Q6HR PRN #12 tab 08/12/21 Metoprolol Tartrate [Lopressor] 12.5 mg PO BID 30 Days #60 tablet 08/12/21 oxyCODONE-APAP 7.5-325MG [Percocet 1 tab PO Q6HR PRN 2 Days #6 tab 08/12/21 7.5-325 mg] Allergies Allergy/AdvReac Type Severity Reaction Status Date / Time aspirin Allergy NAUSEA Verified 08/20/21 12:44 /VOMITING Penicillins Allergy Rash/Hives Verified 08/20/21 12:44 NSAIDS (Non-Steroidal AdvReac Unknown Nausea & Verified 08/20/21 12:44 Anti-Inflamma Vomiting-UPSET STOMACH Review of Systems ROS Statement: Those systems with pertinent positive or pertinent negative responses have been documented in the HPI. ROS Other: All systems not noted in ROS Statement are negative. Constitutional: Denies: fever Eyes: Denies: eye pain ENT: Denies: ear pain Respiratory: Reports: as per HPI. Denies: cough Cardiovascular: Denies: chest pain Endocrine: Reports: fatigue Gastrointestinal: Reports: nausea, vomiting. Denies: abdominal pain Genitourinary: Denies: dysuria Musculoskeletal: Reports: as per HPI Skin: Denies: rash Neurological: Reports: as per HPI. 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, prostate cancer, kidney stones History of Any Multi-Drug Resistant Organisms: None Reported Past Surgical History: Hernia Repair, Orthopedic Surgery, Prostate Surgery Additional Past Surgical History / Comment(s): right shoulder surgery arthroscopy, surgery on right shoulder to cut end of bone and attach tendon, left ureteroscopy with laser lithotripsy 05/2021, bilateral cataracts, prostate surgery 08/10/2021 Past Anesthesia/Blood Transfusion Reactions: Postoperative Nausea & Vomiting (PONV) Additional Past Anesthesia/Blood Transfusion Reaction / Comment(s): severe PONV Past Psychological History: No Psychological Hx Reported Smoking Status: Never smoker - Past Family History Father Family Medical History: Cancer General Exam Limitations: no limitations General appearance: in no apparent distress, other (Drowsy but easily arousable to voice) Head exam: Present: atraumatic, normocephalic Eye exam: Present: normal appearance, PERRL Neck exam: Present: normal inspection. Absent: tenderness, meningismus Respiratory exam: Present: normal lung sounds bilaterally Cardiovascular Exam: Present: regular rate, normal rhythm GI/Abdominal exam: Present: soft, distended (Mild diffuse), tenderness (Mild diffuse) exam: Present: normal inspection. Absent: scrotal swelling Extremities exam: Present: normal inspection. Absent: pedal edema, calf te nderness Back exam: Present: normal inspection. Absent: tenderness Neurological exam: Present: oriented X3, CN II-XII intact. Absent: motor sensory deficit Expanded Neurological exam: Present: protecting the airway Patient oriented to: Present: person, place, time Speech: Present: fluid speech Cranial nerves: EOM's Intact: Normal Sensory exam: Upper Extremity Light Touch: Normal, Lower Extremity Light Touch: Normal Motor strength exam: RUE: 5, LUE: 5, RLE: 5, LLE: 5 Eye Response: (3) open to voice Motor Response: (6) obeys commands Verbal Response: (5) oriented Psychiatric exam: Present: normal affect, normal mood Skin exam: Present: normal color Course Vital Signs 08/20/21 08/20/21 08/20/21 12:38 13:44 15:00 Temperature 98.7 F 102.2 F H 101.1 F H Pulse Rate 68 87 92 Respiratory 16 18 16 Rate Blood Pressure 113/70 106/68 105/63 O2 Sat by Pulse 99 94 L 92 L Oximetry EKG Findings - EKG Comments: EKG Findings:: Sinus rhythm 3 . IA 162. QRS 87. QT 373. QTC 418. Normal axis. Normal QRS. No acute ST change. Medical Decision Making - Medical Decision Making Case was discussed twice with Dr. Brice who did review computed tomography scan. He does request KUB. He is concerned about mild left [place]. He will order additional studies however wants a should have some time before giving further contrast. He does agree with antibiotics. Patient reevaluated. Patient and family updated. - Lab Data Result diagrams: 08/20/21 13:33 08/20/21 13:33 Lab Results 08/20/21 08/20/21 08/20/21 Range/Units 13:23 13:33 13:33 WBC 23.8 H (3.8-10.6) k/uL RBC 4.44 (4.30-5.90) m/uL Hgb 13.2 (13.0-17.5) gm/dL Hct 41.5 (39.0-53.0) % MCV 93.5 (80.0-100.0) fL MCH 29.6 (25.0-35.0) pg MCHC 31.7 (31.0-37.0) g/dL RDW 13.5 (11.5-15.5) % Plt Count 254 (150-450) k/uL MPV 8.2 Neutrophils % 93 % Lymphocytes % 3 % Monocytes % 3 % Eosinophils % 0 % Basophils % 0 % Neutrophils # 22.2 H (1.3-7.7) k/uL Lymphocytes # 0.6 L (1.0-4.8) k/uL Monocytes # 0.8 (0-1.0) k/uL Eosinophils # 0.1 (0-0.7) k/uL Basophils # 0.0 (0-0.2) k/uL PT 11.1 (9.0-12.0) sec INR 1.0 (<1.2) APTT 23.3 (22.0-30.0) sec Sodium (137-145) mmol/L Potassium (3.5-5.1) mmol/L Chloride (98-107) mmol/L Carbon Dioxide (22-30) mmol/L Anion Gap mmol/L BUN (9-20) mg/dL Creatinine (0.66-1.25) mg/dL Est GFR (CKD-EPI)AfAm (>60 ml/min/1.73 sqM) Est GFR (CKD-EPI)NonAf (>60 ml/min/1.73 sqM) Glucose (74-99) mg/dL Calcium (8.4-10.2) mg/dL Total Bilirubin (0.2-1.3) mg/dL AST (17-59) U/L ALT (4-49) U/L Alkaline Phosphatase (38-126) U/L Troponin I (0.000-0.034) ng/mL NT-Pro-B Natriuret Pep pg/mL Total Protein (6.3-8.2) g/dL Albumin (3.5-5.0) g/dL Amylase (30-110) U/L Lipase (23-300) U/L Urine Color Yellow Urine Appearance Turbid (Clear) Urine pH 5.0 (5.0-8.0) Ur Specific [place] 1.017 (1.001-1.035) Urine Protein Trace H (Negative) Urine Glucose (UA) Negative (Negative) Urine Ketones Negative (Negative) Urine Blood Large H (Negative) Urine Nitrite Positive (Negative) Urine Bilirubin Negative (Negative) Urine Urobilinogen <2.0 (<2.0) mg/dL Ur Leukocyte Esterase Moderate H (Negative) Urine RBC 82 H (0-5) /hpf Urine WBC 16 H (0-5) /hpf Ur Squamous Epith Cells <1 (0-4) /hpf Amorphous Sediment Rare H (None) /hpf Urine Bacteria Rare H (None) /hpf Urine Mucus Many H (None) /hpf Coronavirus (PCR) (Not Detectd) 08/20/21 08/20/21 08/20/21 Range/Units 13:33 13:33 13:33 WBC (3.8-10.6) k/uL RBC (4.30-5.90) m/uL Hgb (13.0-17.5) gm/dL Hct (39.0-53.0) % MCV (80.0-100.0) fL MCH (25.0-35.0) pg MCHC (31.0-37.0) g/dL RDW (11.5-15.5) % Plt Count (150-450) k/uL MPV Neutrophils % % Lymphocytes % % Monocytes % % Eosinophils % % Basophils % % Neutrophils # (1.3-7.7) k/uL Lymphocytes # (1.0-4.8) k/uL Monocytes # (0-1.0) k/uL Eosinophils # (0-0.7) k/uL Basophils # (0-0.2) k/uL PT (9.0-12.0) sec INR (<1.2) APTT (22.0-30.0) sec Sodium 138 (137-145) mmol/L Potassium 4.6 (3.5-5.1) mmol/L Chloride 104 (98-107) mmol/L Carbon Dioxide 25 (22-30) mmol/L Anion Gap 9 mmol/L BUN 20 (9-20) mg/dL Creatinine 1.12 (0.66-1.25) mg/dL Est GFR (CKD-EPI)AfAm 76 (>60 ml/min/1.73 sqM) Est GFR (CKD-EPI)NonAf 66 (>60 ml/min/1.73 sqM) Glucose 123 H (74-99) mg/dL Calcium 8.4 (8.4-10.2) mg/dL Total Bilirubin 0.6 (0.2-1.3) mg/dL AST 23 (17-59) U/L ALT 22 (4-49) U/L Alkaline Phosphatase 73 (38-126) U/L Troponin I <0.012 (0.000-0.034) ng/mL NT-Pro-B Natriuret Pep pg/mL Total Protein 6.3 (6.3-8.2) g/dL Albumin 3.6 (3.5-5.0) g/dL Amylase 56 (30-110) U/L Lipase 104 (23-300) U/L Urine Color Urine Appearance (Clear) Urine pH (5.0-8.0) Ur Specific [place] (1.001-1.035) Urine Protein (Negative) Urine Glucose (UA) (Negative) Urine Ketones (Negative) Urine Blood (Negative) Urine Nitrite (Negative) Urine Bilirubin (Negative) Urine Urobilinogen (<2.0) mg/dL Ur Leukocyte Esterase (Negative) Urine RBC (0-5) /hpf Urine WBC (0-5) /hpf Ur Squamous Epith Cells (0-4) /hpf Amorphous Sediment (None) /hpf Urine Bacteria (None) /hpf Urine Mucus (None) /hpf Coronavirus (PCR) Not Detected (Not Detectd) 08/20/21 Range/Units 13:33 WBC (3.8-10.6) k/uL RBC (4.30-5.90) m/uL Hgb (13.0-17.5) gm/dL Hct (39.0-53.0) % MCV (80.0-100.0) fL MCH (25.0-35.0) pg MCHC (31.0-37.0) g/dL RDW (11.5-15.5) % Plt Count (150-450) k/uL MPV Neutrophils % % Lymphocytes % % Monocytes % % Eosinophils % % Basophils % % Neutrophils # (1.3-7.7) k/uL Lymphocytes # (1.0-4.8) k/uL Monocytes # (0-1.0) k/uL Eosinophils # (0-0.7) k/uL Basophils # (0-0.2) k/uL PT (9.0-12.0) sec INR (<1.2) APTT (22.0-30.0) sec Sodium (137-145) mmol/L Potassium (3.5-5.1) mmol/L Chloride (98-107) mmol/L Carbon Dioxide (22-30) mmol/L Anion Gap mmol/L BUN (9-20) mg/dL Creatinine (0.66-1.25) mg/dL Est GFR (CKD-EPI)AfAm (>60 ml/min/1.73 sqM) Est GFR (CKD-EPI)NonAf (>60 ml/min/1.73 sqM) Glucose (74-99) mg/dL Calcium (8.4-10.2) mg/dL Total Bilirubin (0.2-1.3) mg/dL AST (17-59) U/L ALT (4-49) U/L Alkaline Phosphatase (38-126) U/L Troponin I (0.000-0.034) ng/mL NT-Pro-B Natriuret Pep 211 pg/mL Total Protein (6.3-8.2) g/dL Albumin (3.5-5.0) g/dL Amylase (30-110) U/L Lipase (23-300) U/L Urine Color Urine Appearance (Clear) Urine pH (5.0-8.0) Ur Specific [place] (1.001-1.035) Urine Protein (Negative) Urine Glucose (UA) (Negative) Urine Ketones (Negative) Urine Blood (Negative) Urine Nitrite (Negative) Urine Bilirubin (Negative) Urine Urobilinogen (<2.0) mg/dL Ur Leukocyte Esterase (Negative) Urine RBC (0-5) /hpf Urine WBC (0-5) /hpf Ur Squamous Epith Cells (0-4) /hpf Amorphous Sediment (None) /hpf Urine Bacteria (None) /hpf Urine Mucus (None) /hpf Coronavirus (PCR) (Not Detectd) Disposition Clinical Impression: Abdominal pain, Fever Disposition: ADMITTED IP TO THIS HOSP Is patient prescribed a controlled substance at d/c from ED?: No Referrals: Christianne Hartman MD [Primary Care Provider] - 1-2 days Time of Disposition: 15:38
[2021-08-20 13:33] LABS: Amorphous Sediment,Urine Rare /hpf; Appearance,Urine Turbid (Clear); Bacteria,Urine Rare /hpf; Bilirubin,Urine Negative (Negative); Blood,Urine Large (Negative); Color,Urine Yellow; Glucose,Urine (UA) Negative (Negative); Ketones,Urine Negative (Negative); Leukocyte Esterase,Urine Moderate (Negative); Mucus,Urine Many /hpf; Nitrite,Urine Positive (Negative); Protein,Urine Trace (Negative); RBC,Urine 82 /hpf (0-5); Specific Gravity,Urine 1.017 (1.001-1.035); Squamous Epithelial Cell,Urine <1 /hpf (0-4); Urobilinogen,Urine <2.0 mg/dL (<2.0); WBC,Urine 16 /hpf (0-5)
[2021-08-20] MEDS ORDERED: ACETAMINOPHEN TAB 500 MG TAB PO STA (13:59)
[2021-08-20 14:12] LABS: Albumin 3.6 g/dL (3.5-5.0); Calcium 8.4 mg/dL (8.4-10.2); Potassium 4.6 mmol/L (3.5-5.1); Total Bilirubin 0.6 mg/dL (0.2-1.3); Total Protein 6.3 g/dL (6.3-8.2)
[2021-08-20 14:16] LABS: Partial Thromboplastin Time 23.3 sec (22.0-30.0); Prothrombin Time 11.1 sec (9.0-12.0)
[2021-08-20 14:35] LABS: Basophils % (A) 0 %; Eosinophils # (A) 0.1 k/uL (0-0.7); Eosinophils % (A) 0 %; HCT 41.5 % (39.0-53.0); HGB 13.2 gm/dL (13.0-17.5); Lymphocytes # (A) 0.6 k/uL (1.0-4.8); Lymphocytes % (A) 3 %; MCH 29.6 pg (25.0-35.0); MCHC 31.7 g/dL (31.0-37.0); MCV 93.5 fL (80.0-100.0); Mean Platelet Volume 8.2; Monocytes # (A) 0.8 k/uL (0-1.0); Monocytes % (A) 3 %; Neutrophils # (A) 22.2 k/uL (1.3-7.7); Neutrophils % (A) 93 %; Platelet Count 254 k/uL (150-450); RBC 4.44 m/uL (4.30-5.90); RDW 13.5 % (11.5-15.5); WBC 23.8 k/uL (3.8-10.6)
--- NOTE | 2021-08-20 14:49 | CT ---
EXAMINATION TYPE: CT abdomen pelvis w con DATE OF EXAM: 08/20/2021 COMPARISON: HISTORY: Vomiting and swelling to abdomen CT DLP: 1349.0 mGycm Automated exposure control for dose reduction was used. CONTRAST: Performed with IV Contrast, patient injected with 100-dose of CTA chest mL of Isovue 370.
--- NOTE | 2021-08-20 14:57 | CT ---
EXAMINATION TYPE: CT angio chest DATE OF EXAM: 08/20/2021 COMPARISON: None HISTORY: Dyspnea, post op CT DLP: 442.1 mGycm Automated exposure control for dose reduction was used. CONTRAST: Performed with IV Contrast, patient injected with 10 mL of Isovue 370. Images obtained from the thoracic inlet to the diaphragm with IV contrast. There are Three-D postproc essed images. There is some mild subsegmental atelectasis in the lower lung camejo. Heart is borderline enlarged. N o pericardial effusion. No pleural effusion. There is abdominal ascites. There is no mediastinal adenopathy. There are no hilar masses. There is no evidence of definite filli ng defect in the pulmonary arteries. Exam limited slightly by motion. There is hiatal hernia. Thoracic aorta appears intact. No aneurysm or dissection. The thoracic spine is intact. No compression fracture. IMPRESSION: Subsegmental atelectasis in the lower lung camejo. No evidence of pulmonary embolism. Abdominal ascit es.
[2021-08-20] MEDS ORDERED: NALOXONE 0.4 MG/ML 1 ML VIAL IV PRN (15:40)
[2021-08-20] MEDS ORDERED: ACETAMINOPHEN TAB 325 MG TAB PO PRN (15:40)
--- NOTE | 2021-08-20 15:58 | XR ---
EXAMINATION TYPE: XR KUB DATE OF EXAM: 08/20/2021 COMPARISON: 06/09/2021 HISTORY: Abdominal pain TECHNIQUE: 2 view supine FINDINGS: There is contrast in the renal collecting systems. No hydronephrosis. Ureters are not dilat ed. There is small amount of contrast in the bladder. No evidence of intestinal obstruction or pneumo peritoneum. Normal fecal pattern. No pathologic calcification seen.. IMPRESSION: Nonacute abdomen.
[2021-08-20] MEDS: LEVOFLOXACIN 750MG-D5W PMX 750 MG in DEXTROSE/WATER 1 150ML.BAG IVPB SCH (17:05)
[2021-08-20] MEDS: SODIUM CHLORIDE 0.9% 1,000 ML IV SCH (17:05)
[2021-08-20] MEDS ORDERED: LACTATED RINGERS 1,000 ML IV SCH (20:15)
--- NOTE | 2021-08-20 21:43 | P.CONS ---
History of Present Illness - Reason for Consult Consult date: 08/20/21 Requesting physician: David Aguayo - Chief Complaint Abdominal swelling, nausea, weakness - History of Present Illness 70-year-old man with a recent radical prostatectomy with lymph node removal and hernia repair with pathology consistent with Acinar adenocarcinoma, dementia, hyperlipidemia, mood disorder presented for generalized weakness, nausea, swelling. Patient was recently discharged from our hospital on 08/12. Patient and supplements the history. They tell me that 3-4 days following discharge, patient started to notice increased swelling in his legs and his scrotum, in the last couple days, he also developed nausea, generalized weakness. He was due to start ciprofloxacin today in anticipation of having his indwelling Mcduffie catheter removed tomorrow and Dr. Esteves' office, however, and he attempted to take his medication this morning, he had an episode of emesis. Therefore, brought him into the hospital today for earlier evaluation. Pat ient noted to have pain in his back/left flank, as well as fevers up to 102.1. At present, he denies chills, nausea, vomiting, chest pain, palpitations, cough, dyspnea, syncope, presyncope, diarrhea, constipation, dysuria, dyschezia, numbness/weakness of his extremities. He does report diffuse abdominal pain, worse on the left and periumbilical area. In the emergency room, patient's T-max was 102.2, 106/68, heart rate 87, 94% on room air. CBC is remarkable for leukocytosis with a left shift up to 23.8. Chemistries are unremarkable. The reflection tests are unremarkable. Initial troponin is negative. BNP is 211. Coags unremarkable. Lactic acid is 0.9. UA is significant for trace protein, large blood, moderate leukocyte esterase, 82 red blood cells, 16 white blood cells, rare bacteria. Covid was negative. CT of the abdomen/pelvis demonstrates mild left-sided hydronephrosis without obstructing lesion, as well as abdominal ascites to be partly hemorrhagic, there is also subcutaneous edema around the abdomen and umbilicus. Chest CT shows no evidence of pulmonary embolism. EKG shows normal sinus rhythm without ischemic changes. KUB shows nonacute abdomen. All Systems reviewed and pertinent positives and negatives noted in HPI, all other symptoms are negative Gen: in no apparent distress, resting comfortably in bed Eyes: PERRL, no scleral injection or icterus HENT: normocephalic, atraumatic, good hearing acuity, moist mucous membranes Neck: no tracheal deviation, full range of motion Resp: good air exchange, breathing comfortably with no accessory muscle use, no tactile fremitus, clear to auscultation bilaterally CVS: good distal perfusion x 4, no pitting edema, regular rate and rhythm with soft systolic murmur GI: soft, tenderness to palpation in the epigastrium, periumbilical area, ND, no hepatosplenomegaly : no suprapubic tenderness, left-sided CVAT, mcduffie catheter is present MSK: no clubbing, no cyanosis, no noted contractures of extremities Skin: no noted rashes, petechiae; temperature of skin is appropriate Neuro: moving all extremities without signs of weakness, CN II-XII intact Psych: cooperative, euthymic mood, insight and judgment intact Labs and imaging reviewed as above Assessment/plan: Sepsis secondary to left-sided pyelonephritis Indwelling catheter present on admission (left sided flank pain, fevers, +UA) -Agree with inpatient management -Agree with Levaquin -Follow up urine culture -Bolused additional 1 L of lactated Ringer's -Normal saline in the 130 mL per hour -Follow blood culture -Pain control -Urology to remove/exchange indwelling catheter Status post radical prostatectomy Prostate adenocarcinoma Abdominal ascites, likely hemorrhagic/postsurgical -Urology following -Liver function tests are normal -Previous echo done on 08/06 was essentially normal for age Dementia Hyperlipidemia Mood disorder -Home medications reviewed and reconciled Patient is full code Chemical DVT prophylaxis held in setting of hematuria 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, prostate cancer, kidney stones History of Any Multi-Drug Resistant Organisms: None Reported Past Surgical History: Hernia Repair, Orthopedic Surgery, Prostate Surgery Additional Past Surgical History / Comment(s): right shoulder surgery arthr oscopy, surgery on right shoulder to cut end of bone and attach tendon, left ureteroscopy with laser lithotripsy 05/2021, bilateral cataracts, prostate surgery 08/10/2021 Past Anesthesia/Blood Transfusion Reactions: Postoperative Nausea & Vomiting (PONV) Additional Past Anesthesia/Blood Transfusion Reaction / Comm: severe PONV Past Psychological History: No Psychological Hx Reported Smoking Status: Never smoker - Past Family History Father Family Medical History: Cancer Medications and Allergies Home Medications Medication Instructions Recorded Confirmed Type Donepezil [Aricept] 10 mg PO DAILY 08/17/14 08/20/21 History Pantoprazole Sodium [Protonix] 40 mg PO DAILY 08/17/14 08/20/21 History amantadine HCL [Symmetrel] 100 mg PO BID 08/17/14 08/20/21 History lamoTRIgine [LaMICtal] 25 mg PO BID 08/17/14 08/20/21 History Rosuvastatin Calcium [Crestor] 5 mg PO W/LUNCH 02/20/21 08/20/21 History Sertraline [Zoloft] 100 mg PO DAILY 02/20/21 08/20/21 History Ciprofloxacin HCl [Cipro] 250 mg PO Q12HR #6 tablet 08/12/21 08/20/21 Rx Metoprolol Tartrate [Lopressor] 12.5 mg PO BID 08/20/21 08/20/21 History Allergies Allergy/AdvReac Type Severity Reaction Status Date / Time aspirin Allergy NAUSEA Verified 08/20/21 16:54 /VOMITING Penicillins Allergy Rash/Hives Verified 08/20/21 16:54 NSAIDS (Non-Steroidal AdvReac Unknown Nausea & Verified 08/20/21 16:54 Anti-Inflamma Vomiting-UPSET STOMACH Physical Exam Osteopathic Statement: *. No significant issues noted on an osteopathic structural exam other than those noted in the History and Physical/Consult. Vitals: Vital Signs Temp Pulse Pulse Resp BP BP Pulse Ox 08/20/21 20:00 98.9 F 78 16 98/60 92 L 08/20/21 19:08 71 18 99/59 95 08/20/21 18:00 98.6 F 83 22 97/60 94 L 08/20/21 17:05 99.2 F 71 18 103/60 94 L 08/20/21 15:00 101.1 F H 92 16 105/63 92 L 08/20/21 13:44 102.2 F H 87 18 106/68 94 L 08/20/21 12:38 98.7 F 68 16 113/70 99 Intake and Output 08/20/21 08/20/21 08/20/21 06:59 14:59 22:59 Output Total 150 Balance -150 Output: Urine 150 Other: Voiding Method Indwelling Catheter Weight 93.44 kg Results CBC & Chem 7: 08/20/21 13:33 08/20/21 13:33 Labs: Abnormal Lab Results - Last 24 Hours (Table) 08/20/21 08/20/21 08/20/21 Range/Units 13:23 13:33 13:33 WBC 23.8 H (3.8-10.6) k/uL Neutrophils # 22.2 H (1.3-7.7) k/uL Lymphocytes # 0.6 L (1.0-4.8) k/uL Glucose 123 H (74-99) mg/dL Urine Protein Trace H (Negative) Urine Blood Large H (Negative) Ur Leukocyte Esterase Moderate H (Negative) Urine RBC 82 H (0-5) /hpf Urine WBC 16 H (0-5) /hpf Amorphous Sediment Rare H (None) /hpf Urine Bacteria Rare H (None) /hpf Urine Mucus Many H (None) /hpf
[2021-08-20] MEDS: lamoTRIgine 25 MG TAB PO SCH (22:36)
[2021-08-21] MEDS: SODIUM CHLORIDE 0.9% 1,000 ML IV SCH ×4 (01:44→23:20)
[2021-08-21] MEDS: DONEPEZIL 10 MG TAB PO SCH (07:29)
[2021-08-21] MEDS: PANTOPRAZOLE 40 MG TABLET PO SCH (07:29)
[2021-08-21] MEDS: lamoTRIgine 25 MG TAB PO SCH ×2 (07:29→20:21)
[2021-08-21] MEDS: SERTRALINE 100 MG TAB PO SCH (07:29)
[2021-08-21 08:48] LABS: Basophils # (A) 0.07 X 10*3/uL (0.00-0.10); Basophils % (A) 0.3 %; Eosinophils % (A) 2.5 %; HCT 35.6 % (39.6-50.0); HGB 11.1 g/dL (13.0-17.0); Immature Grans, Automated 0.7 %; MCH 29.2 pg (27.0-32.0); MCHC 31.2 g/dL (32.0-37.0); MCV 93.7 fL (80.0-97.0); Mean Platelet Volume 10.9 fL (9.5-12.2); Monocytes % (A) 5.5 %; NRBC Per 100 WBC 0 /100 WBCS (0.0-0.0); Platelet Count 179 X 10*3/uL (140-440); RDW 13.3 % (11.5-14.5); WBC 20.12 X 10*3/uL (4.50-10.00)
[2021-08-21] MEDS ORDERED: PANTOPRAZOLE 40 MG/10 ML VIAL IV SCH (09:00)
[2021-08-21 09:01] LABS: African American GFR (CKD) 86.8 (60.0-200.0); Albumin 3.1 g/dL (3.8-4.9); Albumin/Globulin Ratio 1.55 (1.60-3.17); Anion Gap 12.6 mmol/L (10.00-18.00); BUN/Creat Ratio 16.1 Ratio (12.00-20.00); Blood Urea Nitrogen 16.1 mg/dL (9.0-27.0); Calcium 8.3 mg/dL (8.7-10.3); Carbon Dioxide 20.4 mmol/L (20.0-27.5); Non-African American GFR(CKD) 74.9 (60.0-200.0); Potassium 4.3 mmol/L (3.5-5.5); Total Bilirubin 0.4 mg/dL (0.30-1.20); Total Protein 5.1 g/dL (6.2-8.2)
--- NOTE | 2021-08-21 10:13 | P.GSHP ---
History of Present Illness H&P Date: 08/21/21 70 yo male known to our office for stones and prostate cancer. CAme to the er with fever and abdominal pain. He had a ct scan that showed some mild left hydro and some intraabdominal fluid. On 08/10/2021 Dr Esteves did a RALP for prostate cancer. He also had a ureteroscopy left on 06/09/[address] Esteves for a large stone on the left.He still has his indwelling catheter. He has had swelling since surgery. - Constitutional Constitutional: Denies chills, Denies fever - EENT Eyes: denies blurred vision, denies pain Ears, nose, mouth and throat: Denies headache, Denies sore throat - Cardiovascular Cardiovascular: Denies chest pain, Denies shortness of breath - Respiratory Respiratory: Denies cough, Denies 7 - Gastrointestinal Gastrointestinal: Denies abdominal pain, Denies diarrhea, Denies nausea, Denies vomiting - Genitourinary (Female) Genitourinary: Denies dysuria, Denies hematuria - Genitourinary (Male) Genitourinary: Denies dysuria, Denies hematuria - Musculoskeletal Musculoskeletal: Denies myalgias - Integumentary Integumentary: Denies pruritus, Denies rash - Neurological Neurological: Denies numbness, Denies weakness - Psychiatric Psychiatric: Denies anxiety, Denies depression - Endocrine Endocrine: Denies fatigue, Denies weight change 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, prostate cancer, kidney stones History of Any Multi-Drug Resistant Organisms: None Reported Past Surgical History: Hernia Repair, Orthopedic Surgery, Prostate Surgery Additional Past Surgical History / Comment(s): right shoulder surgery arthroscopy, surgery on right shoulder to cut end of bone and attach tendon, left ureteroscopy with laser lithotripsy 05/2021, bilateral cataracts, prostate surgery 08/10/2021 Past Anesthesia/Blood Transfusion Reactions: Postoperative Nausea & Vomiting (PONV) Additional Past Anesthesia/Blood Transfusion Reaction / Comment(s): severe PONV Past Psychological History: No Psychological Hx Reported Smoking Status: Never smoker - Past Family History Father Family Medical History: Cancer Medications and Allergies Home Medications Medication Instructions Recorded Confirmed Type Donepezil [Aricept] 10 mg PO DAILY 08/17/14 08/20/21 History Pantoprazole Sodium [Protonix] 40 mg PO DAILY 08/17/14 08/20/21 History amantadine HCL [Symmetrel] 100 mg PO BID 08/17/14 08/20/21 History lamoTRIgine [LaMICtal] 25 mg PO BID 08/17/14 08/20/21 History Rosuvastatin Calcium [Crestor] 5 mg PO W/LUNCH 02/20/21 08/20/21 History Sertraline [Zoloft] 100 mg PO DAILY 02/20/21 08/20/21 History Ciprofloxacin HCl [Cipro] 250 mg PO Q12HR #6 tablet 08/12/21 08/20/21 Rx Metoprolol Tartrate [Lopressor] 12.5 mg PO BID 08/20/21 08/20/21 History Allergies Allergy/AdvReac Type Severity Reaction Status Date / Time aspirin Allergy NAUSEA Verified 08/20/21 16:54 /VOMITING Penicillins Allergy Rash/Hives Verified 08/20/21 16:54 NSAIDS (Non-Steroidal AdvReac Unknown Nausea & Verified 08/20/21 16:54 Anti-Inflamma Vomiting-UPSET STOMACH Surgical - Exam Vital Signs Temp Pulse Resp BP Pulse Ox 98.7 F 68 16 113/70 99 08/20/21 12:38 08/20/21 12:38 08/20/21 12:38 08/20/21 12:38 08/20/21 12:38 - General well developed, well nourished, no distress - Eyes PERRL - ENT no hearing loss - Neck trachea midline - Respiratory normal expansion, normal respiratory effort - Cardiovascular Rhythm: regular - Abdomen The incisions are healing. There is no obvious erythema or crepitus Abdomen: soft, non tender - Genitourinary There is scrotal edema without obvious erythema or crepitus - Integumentary no rash, no growths - Neurologic normal sensation - Musculoskeletal normal posture - Psychiatric oriented to time, oriented to person, oriented to place, memory intact Results - Labs 08/21/21 05:48 08/21/21 05:48 Abnormal Lab Results - Last 24 Hours (Table) 08/20/21 08/20/21 08/20/21 Range/Units 13:23 13:33 13:33 WBC 23.8 H (3.8-10.6) k/uL Neutrophils # 22.2 H (1.3-7.7) k/uL Lymphocytes # 0.6 L (1.0-4.8) k/uL Glucose 123 H (74-99) mg/dL Urine Protein Trace H (Negative) Urine Blood Large H (Negative) Ur Leukocyte Esterase Moderate H (Negative) Urine RBC 82 H (0-5) /hpf Urine WBC 16 H (0-5) /hpf Amorphous Sediment Rare H (None) /hpf Urine Bacteria Rare H (None) /hpf Urine Mucus Many H (None) /hpf Microbiology - Last 24 Hours (Table) 08/20/21 13:23 Urine Culture - Preliminary Urine,Voided Diabetes panel 08/20/21 Range/Units 13:33 Sodium 138 (137-145) mmol/L Potassium 4.6 (3.5-5.1) mmol/L Chloride 104 (98-107) mmol/L Carbon Dioxide 25 (22-30) mmol/L BUN 20 (9-20) mg/dL Creatinine 1.12 (0.66-1.25) mg/dL Glucose 123 H (74-99) mg/dL Calcium 8.4 (8.4-10.2) mg/dL AST 23 (17-59) U/L ALT 22 (4-49) U/L Alkaline Phosphatase 73 (38-126) U/L Total Protein 6.3 (6.3-8.2) g/dL Albumin 3.6 (3.5-5.0) g/dL Calcium panel 08/20/21 Range/Units 13:33 Calcium 8.4 (8.4-10.2) mg/dL Albumin 3.6 (3.5-5.0) g/dL Pituitary panel 08/20/21 Range/Units 13:33 Sodium 138 (137-145) mmol/L Potassium 4.6 (3.5-5.1) mmol/L Chloride 104 (98-107) mmol/L Carbon Dioxide 25 (22-30) mmol/L BUN 20 (9-20) mg/dL Creatinine 1.12 (0.66-1.25) mg/dL Glucose 123 H (74-99) mg/dL Calcium 8.4 (8.4-10.2) mg/dL Adrenal panel 08/20/21 Range/Units 13:33 Sodium 138 (137-145) mmol/L Potassium 4.6 (3.5-5.1) mmol/L Chloride 104 (98-107) mmol/L Carbon Dioxide 25 (22-30) mmol/L BUN 20 (9-20) mg/dL Creatinine 1.12 (0.66-1.25) mg/dL Glucose 123 H (74-99) mg/dL Calcium 8.4 (8.4-10.2) mg/dL Total Bilirubin 0.6 (0.2-1.3) mg/dL AST 23 (17-59) U/L ALT 22 (4-49) U/L Alkaline Phosphatase 73 (38-126) U/L Total Protein 6.3 (6.3-8.2) g/dL Albumin 3.6 (3.5-5.0) g/dL - Imaging CT scan - abdomen: report reviewed, image reviewed CT scan - pelvis: report reviewed, image reviewed Assessment and Plan Assessment: Impression: Abdominal discomfort. Possible urinary tract infection. Elevated white count consistent with urine infection. Recommendations: CAT scan shows postoperative intra-abdominal fluid. The abdomen is soft without obvious erythema of the wounds. The penis and scrotum are unremarkable other than some scrotal edema which again is normal postoperatively. Urine looks infected. Some mild left [place] which would be consistent with recent surgery as well as referral large stone done a couple months ago. At this point time he'll continue with antibiotics. We will follow him closely.
--- NOTE | 2021-08-21 12:39 | P.PN ---
Subjective Progress Note Date: 08/21/21 History of Present Illness 70-year-old man with a recent radical prostatectomy with lymph node removal and hernia repair with pathology consistent with Acinar adenocarcinoma, dementia, hyperlipidemia, mood disorder presented for generalized weakness, nausea, swelling. Patient was recently discharged from our hospital on 08/12. Patient and supplements the history. They tell me that 3-4 days following discharge, patient started to notice increased swelling in his legs and his scrotum, in the last couple days, he also developed nausea, generalized weakness. He was due to start ciprofloxacin today in anticipation of having his indwelling Mcduffie catheter removed tomorrow and Dr. Esteves' office, however, and he attempted to take his medication this morning, he had an episode of emesis. Therefore, brought him into the hospital today for earlier evaluation. Farheen guadalupent noted to have pain in his back/left flank, as well as fevers up to 102.1. At present, he denies chills, nausea, vomiting, chest pain, palpitations, cough, dyspnea, syncope, presyncope, diarrhea, constipation, dysuria, dyschezia, numbness/weakness of his extremities. He does report diffuse abdominal pain, worse on the left and periumbilical area. In the emergency room, patient's T-max was 102.2, 106/68, heart rate 87, 94% on room air. CBC is remarkable for leukocytosis with a left shift up to 23.8. Chemistries are unremarkable. The reflection tests are unremarkable. Initial troponin is negative. BNP is 211. Coags unremarkable. Lactic acid is 0.9. UA is significant for trace protein, large blood, moderate leukocyte esterase, 82 red blood cells, 16 white blood cells, rare bacteria. Covid was negative. CT of the abdomen/pelvis demonstrates mild left-sided hydronephrosis without obstructing lesion, as well as abdominal ascites to be partly hemorrhagic, there is also subcutaneous edema around the abdomen and umbilicus. Chest CT shows no evidence of pulmonary embolism. EKG shows normal sinus rhythm without ischemic changes. KUB shows nonacute abdomen. Interval history: Patient was examined at the bedside. He is alert oriented 3. He reports improvement in his left flank pain. He denies any chest pain or shortness of breath. Otherwise no acute changes overnight Gen: in no apparent distress, resting comfortably in bed Eyes: PERRL, no scleral injection or icterus HENT: normocephalic, atraumatic, good hearing acuity, moist mucous membranes Neck: no tracheal deviation, full range of motion Resp: good air exchange, breathing comfortably with no accessory muscle use, no tactile fremitus, clear to auscultation bilaterally CVS: good distal perfusion x 4, no pitting edema, regular rate and rhythm with soft systolic murmur GI: soft, tenderness to palpation in the epigastrium, periumbilical area, ND, no hepatosplenomegaly : no suprapubic tenderness, left-sided CVAT, mcduffie catheter is present MSK: no clubbing, no cyanosis, no noted contractures of extremities Skin: no noted rashes, petechiae; temperature of skin is appropriate Neuro: moving all extremities without signs of weakness, CN II-XII intact Psych: cooperative, euthymic mood, insight and judgment intact Labs and imaging reviewed as above Assessment/plan: Sepsis secondary to left-sided pyelonephritis Indwelling catheter present on admission (left sided flank pain, fevers, +UA) -Resume Levaquin -Infectious disease consulted -Follow up urine culture -Normal saline in the 130 mL per hour -Follow blood culture -Pain control -Urology managing Status post radical prostatectomy Prostate adenocarcinoma Abdominal ascites, likely hemorrhagic/postsurgical -Urology following -Liver function tests are normal -Previous echo done on 08/06 was essentially normal for age Dementia Hyperlipidemia Mood disorder -Home medications reviewed and reconciled Patient is full code Chemical DVT prophylaxis held in setting of hematuria Objective - Vital Signs Vital signs: Vital Signs Temp 98.6 F 08/21/21 12:03 Pulse 80 08/21/21 12:03 Resp 13 08/21/21 12:03 BP 117/69 08/21/21 12:03 Pulse Ox 94 L 08/21/21 12:03 FiO2 Intake & Output 08/20/21 08/21/21 08/21/21 18:59 06:59 18:59 Output Total 150 100 850 Balance -150 -100 -850 Weight 93.44 kg 93.44 kg Output: Urine 150 100 850 Other: Voiding Method Indwelling Catheter Indwelling Catheter Indwelling Catheter - Labs CBC & Chem 7: 08/21/21 05:48 08/21/21 05:48 Labs: Abnormal Lab Results - Last 24 Hours (Table) 08/20/21 08/20/21 08/20/21 Range/Units 13:23 13:33 13:33 WBC 23.8 H (3.8-10.6) k/uL RBC (4.40-5.60) X 10*6/uL Hgb (13.0-17.0) g/dL Hct (39.6-50.0) % MCHC (32.0-37.0) g/dL Immature Gran # (0.00-0.04) X 10*3/uL Neutrophils # 22.2 H (1.3-7.7) k/uL Lymphocytes # 0.6 L (1.0-4.8) k/uL Monocytes # (0.20-1.00) X 10*3/uL Eosinophils # (0.04-0.35) X 10*3/uL Glucose 123 H (74-99) mg/dL Calcium (8.7-10.3) mg/dL Total Protein (6.2-8.2) g/dL Albumin (3.8-4.9) g/dL Albumin/Globulin Ratio (1.60-3.17) g/dL Amylase (23-121) U/L Urine Protein Trace H (Negative) Urine Blood Large H (Negative) Ur Leukocyte Esterase Moderate H (Negative) Urine RBC 82 H (0-5) /hpf Urine WBC 16 H (0-5) /hpf Amorphous Sediment Rare H (None) /hpf Urine Bacteria Rare H (None) /hpf Urine Mucus Many H (None) /hpf 08/21/21 08/21/21 Range/Units 05:48 05:48 WBC 20.12 H (3.8-10.6) k/uL RBC 3.80 L (4.40-5.60) X 10*6/uL Hgb 11.1 L (13.0-17.0) g/dL Hct 35.6 L (39.6-50.0) % MCHC 31.2 L (32.0-37.0) g/dL Immature Gran # 0.15 H (0.00-0.04) X 10*3/uL Neutrophils # 17.30 H (1.3-7.7) k/uL Lymphocytes # (1.0-4.8) k/uL Monocytes # 1.10 H (0.20-1.00) X 10*3/uL Eosinophils # 0.50 H (0.04-0.35) X 10*3/uL Glucose (74-99) mg/dL Calcium 8.3 L (8.7-10.3) mg/dL Total Protein 5.1 L (6.2-8.2) g/dL Albumin 3.1 L (3.8-4.9) g/dL Albumin/Globulin Ratio 1.55 L (1.60-3.17) g/dL Amylase 21 L (23-121) U/L Urine Protein (Negative) Urine Blood (Negative) Ur Leukocyte Esterase (Negative) Urine RBC (0-5) /hpf Urine WBC (0-5) /hpf Amorphous Sediment (None) /hpf Urine Bacteria (None) /hpf Urine Mucus (None) /hpf Microbiology - Last 24 Hours (Table) 08/20/21 13:23 Urine Culture - Preliminary Urine,Voided
[2021-08-21] MEDS: ATORVASTATIN 10 MG TAB PO SCH (13:27)
[2021-08-21] MEDS: LEVOFLOXACIN 750MG-D5W PMX 750 MG in DEXTROSE/WATER 1 150ML.BAG IVPB SCH (16:50)
[2021-08-21] MEDS ORDERED: VANCOMYCIN IV PER PHARMACY 1 EACH MISC MISCELLANE PRN (22:48)
--- NOTE | 2021-08-21 22:48 | P.CONS ---
History of Present Illness - Reason for Consult Consult date: 08/21/21 Sepsis Requesting physician: Carolyn Corrales - Chief Complaint Weakness and generalized fatigue x few days - History of Present Illness Patient is a 70-year-old male with a past medical history significant for prostate cancer history of kidney stone traumatic brain injury and gastroesophageal reflux disease, patient presenting to the ER yesterday afternoo n for evaluation of generalized fatigue and some leg swelling in this patient symptom has been going on for few days before presentation to hospital patient was complaining of some genital swelling but no significant pain wound or any drainage patient on presentation to the hospital was running a fever of 102 F, patient did have some tachycardia and white count 23.8 kidney function was normal liver enzymes are normal did have a positive UA COVID testing was negative patient has been started on levofloxacin because of his penicillin allergy infectious disease was consulted for further management of antibiotic therapy, most information has been obtained from review the chart and the patient presented with good historian has been complaining of some weakness denies have any chest pain did have some lower abdominal pain more of a dull aching to the referring radiation did have some difficulty urination requiring Levine catheter placement patient did have a CT of abdominal pelvis mild left- sided hydronephrosis with no obstructing lesion seen patient evaluated by urology recommending medical treatment at this point Review of Systems Positive point has been mentioned in the HPI rest of the systems are negative 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, prostate cancer, kidney stones History of Any Multi-Drug Resistant Organisms: None Reported Past Surgical History: Hernia Repair, Orthopedic Surgery, Prostate Surgery Additional Past Surgical History / Comment(s): right shoulder surgery arthroscopy, surgery on right shoulder to cut end of bone and attach tendon, left ureteroscopy with laser lithotripsy 05/2021, bilateral cataracts, prostate surgery 08/10/2021 Past Anesthesia/Blood Transfusion Reactions: Postoperative Nausea & Vomiting (PONV) Additional Past Anesthesia/Blood Transfusion Reaction / Comm: severe PONV Past Psychological History: No Psychological Hx Reported Smoking Status: Never smoker - Past Family History Father Family Medical History: Cancer Medications and Allergies Home Medications Medication Instructions Recorded Confirmed Type Donepezil [Aricept] 10 mg PO DAILY 08/17/14 08/20/21 History Pantoprazole Sodium [Protonix] 40 mg PO DAILY 08/17/14 08/20/21 History amantadine HCL [Symmetrel] 100 mg PO BID 08/17/14 08/20/21 History lamoTRIgine [LaMICtal] 25 mg PO BID 08/17/14 08/20/21 History Rosuvastatin Calcium [Crestor] 5 mg PO W/LUNCH 02/20/21 08/20/21 History Sertraline [Zoloft] 100 mg PO DAILY 02/20/21 08/20/21 History Metoprolol Tartrate [Lopressor] 12.5 mg PO BID 08/20/21 08/20/21 History Cephalexin [Keflex] 500 mg PO Q8HR 10 Days #30 cap 08/25/21 Rx Lactobacillus Acidoph & Bulgar 1 each PO TID packet 08/25/21 Rx [Lactinex] Allergies Allergy/AdvReac Type Severity Reaction Status Date / Time aspirin Allergy NAUSEA Verified 08/20/21 16:54 /VOMITING Penicillins Allergy Rash/Hives Verified 08/20/21 16:54 NSAIDS (Non-Steroidal AdvReac Unknown Nausea & Verified 08/20/21 16:54 Anti-Inflamma Vomiting-UPSET STOMACH Physical Exam Vitals: Vital Signs Temp Pulse Pulse Resp BP BP Pulse Ox 08/21/21 12:03 98.6 F 80 13 117/69 94 L 08/21/21 04:33 98.1 F 84 18 102/62 92 L 08/21/21 03:13 99.2 F 08/21/21 01:40 100.3 F H 08/20/21 20:00 98.9 F 78 16 98/60 92 L 08/20/21 19:08 71 18 99/59 95 08/20/21 18:00 98.6 F 83 22 97/60 94 L 08/20/21 17:05 99.2 F 71 18 103/60 94 L 08/20/21 15:00 101.1 F H 92 16 105/63 92 L Intake and Output 08/20/21 08/21/21 08/21/21 22:59 06:59 14:59 Output Total 150 100 850 Balance -150 -100 -850 Output: Urine 150 100 850 Other: Voiding Method Indwelling Catheter Indwelling Catheter Weight 93.44 kg GENERAL DESCRIPTION: Elderly male lying in bed, no distress. No tachypnea or ac cessory muscle of respiration use. HEENT: Shows Pallor , no scleral icterus. Oral mucous membrane is dry. No pharyngeal erythema or thrush NECK: Trachea central, no thyromegaly. LUNGS: Unlabored breathing. Clear to auscultation anteriorly. No wheeze or crackle. HEART: S1, S2, regular rate and rhythm. No loud murmur ABDOMEN: Soft, no tenderness , guarding or rigidity, no organomegaly EXTREMITIES: No edema of feet. SKIN: No rash, no masses palpable. NEUROLOGICAL: The patient is awake, alert, oriented x3, mood and affect normal. Results CBC & Chem 7: 08/24/21 07:59 08/24/21 07:59 Labs: Abnormal Lab Results - Last 24 Hours (Table) 08/20/21 08/20/21 08/21/21 Range/Units 13:33 13:33 05:48 WBC 23.8 H 20.12 H (3.8-10.6) k/uL RBC 3.80 L (4.40-5.60) X 10*6/uL Hgb 11.1 L (13.0-17.0) g/dL Hct 35.6 L (39.6-50.0) % MCHC 31.2 L (32.0-37.0) g/dL Immature Gran # 0.15 H (0.00-0.04) X 10*3/uL Neutrophils # 22.2 H 17.30 H (1.3-7.7) k/uL Lymphocytes # 0.6 L (1.0-4.8) k/uL Monocytes # 1.10 H (0.20-1.00) X 10*3/uL Eosinophils # 0.50 H (0.04-0.35) X 10*3/uL Glucose 123 H (74-99) mg/dL Calcium (8.7-10.3) mg/dL Total Protein (6.2-8.2) g/dL Albumin (3.8-4.9) g/dL Albumin/Globulin Ratio (1.60-3.17) g/dL Amylase (23-121) U/L 08/21/21 Range/Units 05:48 WBC (3.8-10.6) k/uL RBC (4.40-5.60) X 10*6/uL Hgb (13.0-17.0) g/dL Hct (39.6-50.0) % MCHC (32.0-37.0) g/dL Immature Gran # (0.00-0.04) X 10*3/uL Neutrophils # (1.3-7.7) k/uL Lymphocytes # (1.0-4.8) k/uL Monocytes # (0.20-1.00) X 10*3/uL Eosinophils # (0.04-0.35) X 10*3/uL Glucose (74-99) mg/dL Calcium 8.3 L (8.7-10.3) mg/dL Total Protein 5.1 L (6.2-8.2) g/dL Albumin 3.1 L (3.8-4.9) g/dL Albumin/Globulin Ratio 1.55 L (1.60-3.17) g/dL Amylase 21 L (23-121) U/L Microbiology - Last 24 Hours (Table) 08/20/21 13:23 Urine Culture - Preliminary Urine,Voided Assessment and Plan (1) Sepsis Current Visit: Yes Status: Acute Code(s): A41.9 - SEPSIS, UNSPECIFIED ORGANISM SNOMED Code(s): 59823842 Plan: 1patient presented to hospital with sepsis and respiratory have fever elevated white count significantly positive UA likely the source of infection with urine now showing staph auris with question of possible MSSA versus MRSA. 2penicillin allergy that would limit the number of antibiotics safe to use. 3we will add vancomycin pharmacy to dose while waiting for the culture to finalize. 4gentle IV fluid. We will follow on clinical condition and cultures to further adjust medication if needed Thank you for this consultation will follow this patient along with you Time with Patient: Greater than 30
[2021-08-21] MEDS: VANCOMYCIN 1,500 MG in SODIUM CHLORIDE 0.9% 250 ML IVPB SCH (23:20)
[2021-08-22] MEDS: SODIUM CHLORIDE 0.9% 1,000 ML IV SCH ×3 (03:13→20:32)
--- NOTE | 2021-08-22 06:58 | P.PN ---
Subjective Progress Note Date: 08/22/21 The patient is in the hospital with abdominal pain and fever elus-orylyct-lrhcpvdz prostatectomy. He is afebrile. His pain seems to be less. His urine is clear. Dr. Liang of infectious disease has seen the patient. He has adjusted his medication. I will make sure the patient ambulates. The patient did have a bowel movement. Objective - Vital Signs Vital signs: Vital Signs Temp 99.1 F 08/22/21 05:00 Pulse 81 08/22/21 05:00 Resp 16 08/22/21 05:00 BP 103/64 08/22/21 05:00 Pulse Ox 95 08/22/21 05:00 FiO2 Intake & Output 08/21/21 08/21/21 08/22/21 06:59 18:59 06:59 Intake Total 2740 Output Total 100 850 500 Balance -100 1890 -500 Weight 93.44 kg Intake: Intake, IV Titration 1560 Amount Sodium Chloride 0.9% 1, 1560 000 ml @ 130 mls/hr IV . [id number] [facility] Rx#:[id number] Oral 1180 Output: Urine 100 850 500 Other: Voiding Method Indwelling Catheter Indwelling Catheter Indwelling Catheter - Labs CBC & Chem 7: 08/21/21 05:48 08/21/21 05:48 Labs: Abnormal Lab Results - Last 24 Hours (Table) 08/21/21 08/21/21 Range/Units 05:48 05:48 WBC 20.12 H (4.50-10.00) X 10*3/uL RBC 3.80 L (4.40-5.60) X 10*6/uL Hgb 11.1 L (13.0-17.0) g/dL Hct 35.6 L (39.6-50.0) % MCHC 31.2 L (32.0-37.0) g/dL Immature Gran # 0.15 H (0.00-0.04) X 10*3/uL Neutrophils # 17.30 H (1.80-7.70) X 10*3/uL Monocytes # 1.10 H (0.20-1.00) X 10*3/uL Eosinophils # 0.50 H (0.04-0.35) X 10*3/uL Calcium 8.3 L (8.7-10.3) mg/dL Total Protein 5.1 L (6.2-8.2) g/dL Albumin 3.1 L (3.8-4.9) g/dL Albumin/Globulin Ratio 1.55 L (1.60-3.17) g/dL Amylase 21 L (23-121) U/L Microbiology - Last 24 Hours (Table) 08/20/21 16:45 Blood Culture - Preliminary Blood No Growth after 24 hours 08/20/21 16:30 Blood Culture - Preliminary Blood No Growth after 24 hours 08/20/21 13:23 Urine Culture - Preliminary Urine,Voided Presumptive Staph aureus
[2021-08-22 09:12] LABS: Basophils # (A) 0.04 X 10*3/uL (0.00-0.10); Basophils % (A) 0.2 %; Eosinophils # (A) 0.76 X 10*3/uL (0.04-0.35); Eosinophils % (A) 4.3 %; HCT 33.8 % (39.6-50.0); HGB 10.5 g/dL (13.0-17.0); Immature Grans, Automated 0.8 %; Lymphocytes # (A) 1.02 X 10*3/uL (0.90-5.00); Lymphocytes % (A) 5.8 %; MCH 28.6 pg (27.0-32.0); MCHC 31.1 g/dL (32.0-37.0); MCV 92.1 fL (80.0-97.0); Mean Platelet Volume 11.3 fL (9.5-12.2); Monocytes # (A) 0.76 X 10*3/uL (0.20-1.00); Monocytes % (A) 4.3 %; NRBC Per 100 WBC 0 /100 WBCS (0.0-0.0); Neutrophils # (A) 15.01 X 10*3/uL (1.80-7.70); Neutrophils % (A) 84.6 %; Platelet Count 192 X 10*3/uL (140-440); RBC 3.67 X 10*6/uL (4.40-5.60); RDW 13.2 % (11.5-14.5); WBC 17.73 X 10*3/uL (4.50-10.00)
[2021-08-22 09:28] LABS: African American GFR (CKD) 86.8 (60.0-200.0); Albumin 2.9 g/dL (3.8-4.9); Albumin/Globulin Ratio 1.45 (1.60-3.17); Anion Gap 10.3 mmol/L (10.00-18.00); BUN/Creat Ratio 15.2 Ratio (12.00-20.00); Blood Urea Nitrogen 15.2 mg/dL (9.0-27.0); Carbon Dioxide 20.7 mmol/L (20.0-27.5); Non-African American GFR(CKD) 74.9 (60.0-200.0); Potassium 3.9 mmol/L (3.5-5.5); Total Bilirubin 0.3 mg/dL (0.30-1.20); Total Protein 4.9 g/dL (6.2-8.2)
[2021-08-22] MEDS: SERTRALINE 100 MG TAB PO SCH (09:48)
[2021-08-22] MEDS: DONEPEZIL 10 MG TAB PO SCH (09:48)
[2021-08-22] MEDS: PANTOPRAZOLE 40 MG TABLET PO SCH (09:48)
[2021-08-22] MEDS: lamoTRIgine 25 MG TAB PO SCH ×2 (09:48→20:32)
[2021-08-22] MEDS ORDERED: ONDANSETRON 4 MG/2 ML VIAL IVP PRN (10:42)
[2021-08-22] MEDS: VANCOMYCIN 1,500 MG in SODIUM CHLORIDE 0.9% 250 ML IVPB SCH ×2 (11:34→23:47)
[2021-08-22] MEDS: ATORVASTATIN 10 MG TAB PO SCH (11:35)
--- NOTE | 2021-08-22 12:26 | P.PN ---
Subjective Progress Note Date: 08/22/21 No new complaints today. Ongoing treatment for Pyelonephritis, staph in nature. BCx pending, but likely source is indwelling mcduffie on admission Gen: awake, alert HEENT: normocephalic, atraumatic, good hearing acuity, moist mucous membranes Resp: good air exchange, breathing comfortably with no accessory muscle use CVS: good distal perfusion x 4, GI: soft, NTTP, ND : no SPT, no CVAT, mcduffie catheter is present MSK: no pitting edema, no clubbing Neuro: non-focal, moving all extremities Psych: cooperative, euthymic mood Assessment/plan: Sepsis secondary to left-sided pyelonephritis Indwelling catheter present on admission (left sided flank pain, fevers, +UA) -Agree with inpatient management -Agree with ceftriaxone -Follow up urine culture, growing MSSA -Bolused additional 1 L of lactated Ringer's -Normal saline in the 130 mL per hour -Follow blood culture, NGTD -ID consult appreciated -Pain control -Urology to remove/exchange indwelling catheter Status post radical prostatectomy Prostate adenocarcinoma Abdominal ascites, likely hemorrhagic/postsurgical -Urology following -Liver function tests are normal -Previous echo done on 08/06 was essentially normal for age Dementia Hyperlipidemia Mood disorder -Home medications reviewed and reconciled Patient is full code Chemical DVT prophylaxis held in setting of hematuria Objective - Vital Signs Vital signs: Vital Signs Temp 99.1 F 08/22/21 05:00 Pulse 81 08/22/21 05:00 Resp 16 08/22/21 05:00 BP 103/64 08/22/21 05:00 Pulse Ox 95 08/22/21 05:00 FiO2 Intake & Output 08/21/21 08/22/21 08/22/21 18:59 06:59 18:59 Intake Total 2740 Output Total 850 500 Balance 1890 -500 Intake: Intake, IV Titration 1560 Amount Sodium Chloride 0.9% 1, 1560 000 ml @ 130 mls/hr IV . Q7H42M [facility] Rx#:[id number] Oral 1180 Output: Urine 850 500 Other: Voiding Method Indwelling Catheter Indwelling Catheter - Labs CBC & Chem 7: 08/22/21 06:09 08/22/21 06:09 Labs: Abnormal Lab Results - Last 24 Hours (Table) 08/22/21 08/22/21 Range/Units 06:09 06:09 WBC 17.73 H (4.50-10.00) X 10*3/uL RBC 3.67 L (4.40-5.60) X 10*6/uL Hgb 10.5 L (13.0-17.0) g/dL Hct 33.8 L (39.6-50.0) % MCHC 31.1 L (32.0-37.0) g/dL Immature Gran # 0.14 H (0.00-0.04) X 10*3/uL Neutrophils # 15.01 H (1.80-7.70) X 10*3/uL Eosinophils # 0.76 H (0.04-0.35) X 10*3/uL Calcium 8.0 L (8.7-10.3) mg/dL Total Protein 4.9 L (6.2-8.2) g/dL Albumin 2.9 L (3.8-4.9) g/dL Albumin/Globulin Ratio 1.45 L (1.60-3.17) g/dL Microbiology - Last 24 Hours (Table) 08/20/21 16:45 Blood Culture - Preliminary Blood No Growth after 24 hours 08/20/21 16:30 Blood Culture - Preliminary Blood No Growth after 24 hours 08/20/21 13:23 Urine Culture - Preliminary Urine,Voided Presumptive Staph aureus
--- NOTE | 2021-08-22 13:29 | CDI ---
Documentation Clarification Form Date: 08/22/2021 01:13:18 PM From: Kalani CuencaBLANCA landaverde, CCDS Admit Date: 08/20/2021 03:40:00 PM Patient Name: Uriel Watts Visit Number: [id number] Discharge Date: ATTENTION: The Clinical Documentation Specialists (CDI) and [facility] Coding Staff appreciate your assistance in clarifying documentation. Please respond to the clarification below the line at the bottom and electronically sign. The CDI & [facility] Coding staff will review the response and follow-up if needed. Please note: Queries are made part of the Legal Health Record. If you have any questions, please contact the author of this message via ITS. Dr. Henri Braswell: Per the 08/20 Medical Management Consult: He was due to start Ciprofloxacin today in anticipation of having his indwelling Levine catheter removed tomorrow in Dr. Esteves' office, however, he attempted to take his medication this morning, he had an episode of emesis Per the 08/22 Medical Management Progress Note: Sepsis secondary to left side Pyelonephritis. Follow up urine culture growing MSSA. Additional clarification regarding the etiology of the UTI is requested. History/Risk Factors per the 08/21 Urology H/P: Prostate Cancer status post Prostatectomy 08/10/2021, GERD, Memory Impairment, Osteoarthritis, Traumatic Brain Injury from fall from a tree 2011, Kidney Stones. Clinical Indicators: Presented to the ED on 07/20 with Weakness, Postop pain, Vomiting, Altered Mental Status, Generalized Fatigue, Leg Swelling, Genital Swelling, Abdominal Swelling, Mild Low Back discomfort. Admit with abdominal pain & fever. 08/20 VS: T 98.7, 102.2, 101.1; P 68, 87, 92; R 16, 18; BP 113/70, 106/68, 105/63; PO 99 RA, 94 RA, 92 RA, BMI: 29.6 08/20 LAB: WBC 23.8, Neutrophils 22.2, Lymphocytes 0.6; glucose 123 08/20: UA: Turbid, trace protein, Large Blood, Moderate Esterase, RBC 82, WBC 16. 08/20 Urine culture: Presumptive Staph aureus (preliminary) Treatment: Blood cultures, urine culture, IV Zofran, IV Protonix, IV Levaquin 150 mls @ 100 mls/hr q24H, IV Na Chl 1,000 mls @ 130 mls/hr q7H. 6/7: IV Vancomycin 250 mls @ 125 mls/hr q12H, IV Rocephin 50 mls @ 100 mls/hr q24H, IV Zofran 4 mg q6H/prn Consults to Medical Management & Infectious Disease Please clarify the following: [ ] Sepsis secondary to Urinary Tract Infection related to the Levine catheter [ ] Sepsis secondary to Urinary Tract Infection not related to the Levine catheter. [ ] Urinary Tract Infection related to the Levine Catheter without Sepsis [ ] Urinary Tract Infection not related to the Levine Catheter [ ] Other condition, please specify: [ ] Unable to determine (Template Last Revised: May 2020) ____the patient had robotic prostate surgery requiring a catheter. He came in with abdomina pain , an elevated wbc and positive urine culture. He has been treated successfully with antibiotics. the infection is related to the whole process including a catheter which is required for this surgery. MTDD
[2021-08-22] MEDS ORDERED: LEVOFLOXACIN 750 MG TAB PO SCH (16:00)
[2021-08-22] MEDS ORDERED: ARTIFICIAL TEARS-HYPROMELLOSE DROPS 15 ML BTL BOTH EYES PRN (20:04)
[2021-08-23] MEDS: SODIUM CHLORIDE 0.9% 1,000 ML IV SCH ×2 (04:23→12:32)
[2021-08-23 07:03] LABS: Basophils % (A) 0 %; Eosinophils # (A) 0.9 k/uL (0-0.7); Eosinophils % (A) 7 %; HCT 34.5 % (39.0-53.0); HGB 10.6 gm/dL (13.0-17.5); Lymphocytes # (A) 0.7 k/uL (1.0-4.8); Lymphocytes % (A) 6 %; MCHC 30.6 g/dL (31.0-37.0); MCV 94.7 fL (80.0-100.0); Mean Platelet Volume 8.7; Monocytes # (A) 0.5 k/uL (0-1.0); Monocytes % (A) 4 %; Neutrophils # (A) 9.6 k/uL (1.3-7.7); Neutrophils % (A) 81 %; Platelet Count 207 k/uL (150-450); RBC 3.65 m/uL (4.30-5.90); RDW 12.8 % (11.5-15.5); WBC 11.9 k/uL (3.8-10.6)
[2021-08-23 07:34] LABS: ALT 51 U/L (4-49); AST 68 U/L (17-59); African American GFR (CKD) >90 (>60 ml/min/1.73 sqM); Albumin 2.6 g/dL (3.5-5.0); Albumin/Globulin Ratio 1.1; Alkaline Phosphatase 57 U/L (38-126); Anion Gap 8 mmol/L; Blood Urea Nitrogen 12 mg/dL (9-20); Calcium 7.7 mg/dL (8.4-10.2); Carbon Dioxide 21 mmol/L (22-30); Chloride 109 mmol/L (98-107); Globulin 2.4 g/dL; Glucose 91 mg/dL (74-99); Magnesium 1.9 mg/dL (1.6-2.3); Non-African American GFR(CKD) 88 (>60 ml/min/1.73 sqM); Potassium 3.8 mmol/L (3.5-5.1); Sodium 138 mmol/L (137-145); Total Bilirubin 0.3 mg/dL (0.2-1.3)
[2021-08-23] MEDS: SERTRALINE 100 MG TAB PO SCH (08:51)
[2021-08-23] MEDS: DONEPEZIL 10 MG TAB PO SCH (08:51)
[2021-08-23] MEDS: lamoTRIgine 25 MG TAB PO SCH ×2 (08:51→20:02)
[2021-08-23] MEDS: ATORVASTATIN 10 MG TAB PO SCH (08:51)
[2021-08-23] MEDS: PANTOPRAZOLE 40 MG TABLET PO SCH (08:51)
[2021-08-23] MEDS ORDERED: VANCOMYCIN TROUGH DUE 1 EACH MISC MISCELLANE ONE (11:00)
--- NOTE | 2021-08-23 12:49 | P.PN ---
Subjective Progress Note Date: 08/23/21 (delayed charting seen at 0830) Patient is a 70-year-old male with recent radical prostatectomy and lymph node removal, hernia repair with pathology consistent with aspart adenocarcinoma, de mentia, and dyslipidemia who presented with weakness, nausea, and swelling area and in the ER he was noted to be febrile with a T-max of 102.2. CBC demonstrated a white blood cell count 23.8. CT abdomen and pelvis demonstrated left-sided hydronephrosis without obstructing lesion as well as abdominal ascites. Chest CT showed no evidence of pulmonary embolism. COVID-19 testing was negative. Urinalysis was consistent with possible urinary tract infection. He was admitted and started on IV antibiotics. Urine showed MSSA Patient seen and examined at bedside. He reports he is still having some nausea. He does not want to try eating this morning. Nursing reports he is still weak and physical therapy was consulted. We discussed the results of his urinary tract infection and that he will need to go home on 2 weeks of antibiotics orally. General: non toxic, no distress, appears at stated age Derm: warm, dry Head: atraumatic, normocephalic, symmetric Eyes: EOMI, no lid lag, anicteric sclera Mouth: no lip lesion, mucus membranes moist Cardiovascular: S1S2 reg, no murmur, positive posterior tibial pulse bilateral, Lungs: CTA bilateral, no rhonchi, no rales , no accessory muscle use Abdominal: soft, tender to palpation periumbilical, no guarding, no appreciable organomegaly Ext: no gross muscle atrophy, no edema, no contractures Neuro: CN II-XI grossly intact, no focal neuro deficits Psych: Alert, oriented, appropriate affect Assessment/plan: Sepsis secondary to left-sided pyelonephritis, mcduffie catheter present on ad mission - continue rocephine, d/w ID and plan is for Keflex for a total of 2 weks of ABX on discharge. -Follow up urine culture, growing MSSA -Normal saline Decreased -Blood culture, NGTD -ID recs appreciated -Pain control -Urology recs Status post radical prostatectomy Prostate adenocarcinoma Abdominal ascites, likely hemorrhagic/postsurgical -Urology following -Liver function tests are normal -Previous echo done on 08/06 was essentially normal for age Dementia Hyperlipidemia Mood disorder -Continue current medications - Home health has been arranged for the patinet and we disussed that he needs to try to eat, if able to tolerate diet then medically optimized to consider discharge when determined appropraite by urology. Patient is full code Chemical DVT prophylaxis held in setting of hematuria Objective - Vital Signs Vital signs: Vital Signs Temp 99.0 F 08/23/21 11:41 Pulse 95 08/23/21 11:41 Resp 19 08/23/21 11:41 BP 122/75 08/23/21 11:41 Pulse Ox 97 08/23/21 11:41 FiO2 Intake & Output 08/22/21 08/23/21 08/23/21 18:59 06:59 18:59 Output Total 1200 2000 Balance -1200 -2000 Output: Urine 1200 2000 Other: Voiding Method Indwelling Catheter Indwelling Catheter - Labs CBC & Chem 7: 08/23/21 05:41 08/23/21 05:41 Labs: Abnormal Lab Results - Last 24 Hours (Table) 08/23/21 08/23/21 Range/Units 05:41 05:41 WBC 11.9 H (3.8-10.6) k/uL RBC 3.65 L (4.30-5.90) m/uL Hgb 10.6 L (13.0-17.5) gm/dL Hct 34.5 L (39.0-53.0) % MCHC 30.6 L (31.0-37.0) g/dL Neutrophils # 9.6 H (1.3-7.7) k/uL Lymphocytes # 0.7 L (1.0-4.8) k/uL Eosinophils # 0.9 H (0-0.7) k/uL Chloride 109 H (98-107) mmol/L Carbon Dioxide 21 L (22-30) mmol/L Calcium 7.7 L (8.4-10.2) mg/dL AST 68 H (17-59) U/L ALT 51 H (4-49) U/L Total Protein 5.0 L (6.3-8.2) g/dL Albumin 2.6 L (3.5-5.0) g/dL Microbiology - Last 24 Hours (Table) 08/20/21 13:23 Urine Culture - Final Urine,Voided Staphylococcus aureus 08/20/21 16:45 Blood Culture - Preliminary Blood No Growth after 48 hours 08/20/21 16:30 Blood Culture - Preliminary Blood No Growth after 48 hours
--- NOTE | 2021-08-23 22:51 | P.PN ---
Subjective Progress Note Date: 08/22/21 Principal diagnosis: Urinary tract infection Patient is a 70-year-old male with a past medical history significant for kidney stones and prostate cancer presented to hospital with fatigue weakness fever and has been diagnosed with the complicated intact infection. On today's evaluation that is 08/22/2021, the patient is afebrile, the patient is currently breathing comfortably denies any chest pain shortness of breath or cough no abdominal pain or diarrhea Objective - Vital Signs Vital signs: Vital Signs Temp 99.1 F 08/22/21 05:00 Pulse 81 08/22/21 05:00 Resp 16 08/22/21 05:00 BP 103/64 08/22/21 05:00 Pulse Ox 95 08/22/21 05:00 FiO2 Intake & Output 08/21/21 08/22/21 08/22/21 18:59 06:59 18:59 Intake Total 2740 Output Total 850 500 Balance 1890 -500 Intake: Intake, IV Titration 1560 Amount Sodium Chloride 0.9% 1, 1560 000 ml @ 130 mls/hr IV . Q7H42M [facility] Rx#:[id number] Oral 1180 Output: Urine 850 500 Other: Voiding Method Indwelling Catheter Indwelling Catheter - Exam GENERAL DESCRIPTION: An elderly male lying in bed in no distress RESPIRATORY SYSTEM: Unlabored breathing , decreased breath sounds at bases HEART: S1 S2 regular rate and rhythm , ABDOMEN: Soft , no tenderness EXTREMITIES: No edema feet - Labs CBC & Chem 7: 08/23/21 05:41 08/23/21 05:41 Labs: Abnormal Lab Results - Last 24 Hours (Table) 08/22/21 08/22/21 Range/Units 06:09 06:09 WBC 17.73 H (4.50-10.00) X 10*3/uL RBC 3.67 L (4.40-5.60) X 10*6/uL Hgb 10.5 L (13.0-17.0) g/dL Hct 33.8 L (39.6-50.0) % MCHC 31.1 L (32.0-37.0) g/dL Immature Gran # 0.14 H (0.00-0.04) X 10*3/uL Neutrophils # 15.01 H (1.80-7.70) X 10*3/uL Eosinophils # 0.76 H (0.04-0.35) X 10*3/uL Calcium 8.0 L (8.7-10.3) mg/dL Total Protein 4.9 L (6.2-8.2) g/dL Albumin 2.9 L (3.8-4.9) g/dL Albumin/Globulin Ratio 1.45 L (1.60-3.17) g/dL Microbiology - Last 24 Hours (Table) 08/20/21 16:45 Blood Culture - Preliminary Blood No Growth after 24 hours 08/20/21 16:30 Blood Culture - Preliminary Blood No Growth after 24 hours 08/20/21 13:23 Urine Culture - Preliminary Urine,Voided Presumptive Staph aureus Assessment and Plan (1) Pyelonephritis Current Visit: Yes Status: Acute Code(s): N12 - TUBULO-INTERSTITIAL NEPHRITIS, NOT SPCF ACUTE OR CHRONIC SNOMED Code(s): 97348957 Plan: 1patient presented to hospital with sepsis and respiratory have fever elevated white count significantly positive UA likely the source of infection with urine now showing staph auras with question of possible MSSA versus MRSA. 2penicillin allergy that would limit the number of antibiotics safe to use. 3patient to continue with vancomycin pharmacy to dose and Rocephin while waiting for the cultures to finalize. 4gentle IV fluid. Time with Patient: Less than 30
--- NOTE | 2021-08-23 22:53 | P.PN ---
Subjective Progress Note Date: 08/23/21 Principal diagnosis: Urinary tract infection Patient is a 70-year-old male with a past medical history significant for kidney stones and prostate cancer presented to hospital with fatigue weakness fever and has been diagnosed with the complicated intact infection. On today's evaluation that is 08/23/2021, the patient remains to be afebrile, the patient is breathing comfortably on room air, the patient denies any chest pain shortness of breath or cough no abdominal pain or diarrhea Objective - Vital Signs Vital signs: Vital Signs Temp 99.0 F 08/23/21 11:41 Pulse 95 08/23/21 11:41 Resp 19 08/23/21 11:41 BP 122/75 08/23/21 11:41 Pulse Ox 97 08/23/21 11:41 FiO2 Intake & Output 08/22/21 08/23/21 08/23/21 18:59 06:59 18:59 Output Total 1200 2000 Balance -1200 -2000 Output: Urine 1200 2000 Other: Voiding Method Indwelling Catheter Indwelling Catheter - Exam GENERAL DESCRIPTION: An elderly male lying in bed in no distress RESPIRATORY SYSTEM: Unlabored breathing , decreased breath sounds at bases HEART: S1 S2 regular rate and rhythm , ABDOMEN: Soft , no tenderness EXTREMITIES: No edema feet - Labs CBC & Chem 7: 08/23/21 05:41 08/23/21 05:41 Labs: Abnormal Lab Results - Last 24 Hours (Table) 08/23/21 08/23/21 Range/Units 05:41 05:41 WBC 11.9 H (3.8-10.6) k/uL RBC 3.65 L (4.30-5.90) m/uL Hgb 10.6 L (13.0-17.5) gm/dL Hct 34.5 L (39.0-53.0) % MCHC 30.6 L (31.0-37.0) g/dL Neutrophils # 9.6 H (1.3-7.7) k/uL Lymphocytes # 0.7 L (1.0-4.8) k/uL Eosinophils # 0.9 H (0-0.7) k/uL Chloride 109 H (98-107) mmol/L Carbon Dioxide 21 L (22-30) mmol/L Calcium 7.7 L (8.4-10.2) mg/dL AST 68 H (17-59) U/L ALT 51 H (4-49) U/L Total Protein 5.0 L (6.3-8.2) g/dL Albumin 2.6 L (3.5-5.0) g/dL Microbiology - Last 24 Hours (Table) 08/20/21 13:23 Urine Culture - Final Urine,Voided Staphylococcus aureus 08/20/21 16:45 Blood Culture - Preliminary Blood No Growth after 48 hours 08/20/21 16:30 Blood Culture - Preliminary Blood No Growth after 48 hours Assessment and Plan (1) Pyelonephritis Current Visit: Yes Status: Acute Code(s): N12 - TUBULO-INTERSTITIAL NEPHRITIS, NOT SPCF ACUTE OR CHRONIC SNOMED Code(s): 18270108 Plan: 1patient presented to hospital with sepsis and respiratory have fever elevated white count significantly positive UA likely the source of infection with urine now showing staph auras with question of possible MSSA versus MRSA. 2penicillin allergy that would limit the number of antibiotics safe to use. 3patient urine has been finalized with MSSA blood culture had been negative CT with mild left-sided hydronephrosis, we will discontinue vancomycin and Rocephin and start the patient is cefazolin 2 g every 8 hours with a plan to finish therapy with oral Keflex Time with Patient: Less than 30
[2021-08-24] MEDS: SODIUM CHLORIDE 0.9% 1,000 ML IV SCH ×2 (04:18→19:11)
[2021-08-24] MEDS: PANTOPRAZOLE 40 MG TABLET PO SCH (08:15)
[2021-08-24] MEDS: SERTRALINE 100 MG TAB PO SCH (08:15)
[2021-08-24] MEDS: lamoTRIgine 25 MG TAB PO SCH ×2 (08:15→20:14)
[2021-08-24] MEDS: DONEPEZIL 10 MG TAB PO SCH (08:15)
--- NOTE | 2021-08-24 09:22 | P.PN ---
Progress Note - Text Progress Note Date: 08/24/21 Mr. Watts is afebrile and his WBC count is improving. Unfortunately, he reports nausea and loose stools. On examination, mild abdominal distention is noted. There is no tenderness. The incisions are healing well. He is currently receiving Ancef for a Staph aureus UTI. His Levine catheter will be removed. An abdominal x-ray is to be done today.
[2021-08-24 10:40] LABS: Basophils # (A) 0.07 X 10*3/uL (0.00-0.10); Basophils % (A) 0.7 %; Eosinophils # (A) 0.84 X 10*3/uL (0.04-0.35); Eosinophils % (A) 8.7 %; HGB 10.9 g/dL (13.0-17.0); Immature Grans, Automated 1.2 %; Lymphocytes # (A) 0.66 X 10*3/uL (0.90-5.00); Lymphocytes % (A) 6.9 %; MCH 29.1 pg (27.0-32.0); MCHC 32.1 g/dL (32.0-37.0); MCV 90.9 fL (80.0-97.0); Mean Platelet Volume 10.3 fL (9.5-12.2); Monocytes # (A) 0.55 X 10*3/uL (0.20-1.00); Monocytes % (A) 5.7 %; NRBC Per 100 WBC 0 /100 WBCS (0.0-0.0); Neutrophils # (A) 7.38 X 10*3/uL (1.80-7.70); Neutrophils % (A) 76.8 %; Platelet Count 215 X 10*3/uL (140-440); RBC 3.74 X 10*6/uL (4.40-5.60); WBC 9.62 X 10*3/uL (4.50-10.00)
[2021-08-24 11:07] LABS: African American GFR (CKD) 98.5 (60.0-200.0); Albumin 2.9 g/dL (3.8-4.9); Albumin/Globulin Ratio 1.38 (1.60-3.17); Anion Gap 12.6 mmol/L (10.00-18.00); BUN/Creat Ratio 10.78 Ratio (12.00-20.00); Blood Urea Nitrogen 9.7 mg/dL (9.0-27.0); Calcium 8.1 mg/dL (8.7-10.3); Carbon Dioxide 21.4 mmol/L (20.0-27.5); Globulin 2.1 g/dL (1.6-3.3); Potassium 3.7 mmol/L (3.5-5.5); Total Bilirubin 0.2 mg/dL (0.30-1.20)
--- NOTE | 2021-08-24 11:08 | XR ---
EXAMINATION TYPE: XR abdomen acute w cxr DATE OF EXAM: 08/24/2021 COMPARISON: 08/20/2021 HISTORY: Vomiting TECHNIQUE: Supine, upright, and left side down lateral decubitus views of the abdomen are obtained. FINDINGS: Persistent bilateral subsegmental consolidation with small pleural effusion greater on the right. Calcific tendinosis of the right shoulder with elevated clavicle and resorption or postsurgica l changes distal right clavicle. Correlate for AC joint injury. Bowel gas pattern is nonspecific with air seen through nondilated small and large bowel loops. Arthro maria antonia of the hips and hypertrophic and degenerative change of the spine. IMPRESSION: Nonspecific abdomen. Bilateral lower lobe infiltrate and small effusion greater on the right.
[2021-08-24] MEDS: ATORVASTATIN 10 MG TAB PO SCH (12:01)
[2021-08-24] MEDS: LACTOBACILLUS ACIDOPH & BULGAR 1 EACH PACKET PO SCH ×3 (12:01→21:47)
[2021-08-24] MEDS: METOPROLOL TARTRATE 12.5 MG TAB PO SCH ×2 (12:03→20:14)
[2021-08-25] MEDS: SODIUM CHLORIDE 0.9% 1,000 ML IV SCH (04:50)
--- NOTE | 2021-08-25 07:47 | P.DS ---
Providers Date of admission: 08/20/21 15:40 Attending physician: David Aguayo MD Consults: 08/20/21 15:41 Consult Physician Routine Consulting Provider: Jack Mclain Consult Reason/Comments: medical care Do you want consulting provider notified?: Yes 08/21/21 11:19 Consult Physician Routine Consulting Provider: Kwaku Liang Consult Reason/Comments: sepsis Do you want consulting provider notified?: Yes Primary care physician: Christianne Hartman MD Hospital Course: The patient was admitted to the hospital post-radical prostatectomy for abdominal pain and fever. He had a urinary tract infection. He is required antibiotics. A secondary ileus which is resolving. The catheter be removed this morning. The culture grew staph aureus. A be discharged home on Bactrim. A follow-up with Dr. Esteves next week. His condition is good. He is stable. Patient Condition at Discharge: Good Plan - Discharge Summary Discharge Rx Participant: No New Discharge Prescriptions: No Action lamoTRIgine [LaMICtal] 25 mg PO BID Donepezil [Aricept] 10 mg PO DAILY amantadine HCL [Symmetrel] 100 mg PO BID Pantoprazole Sodium [Protonix] 40 mg PO DAILY Metoprolol Tartrate [Lopressor] 12.5 mg PO BID Sertraline [Zoloft] 100 mg PO DAILY Rosuvastatin Calcium [Crestor] 5 mg PO W/LUNCH Ciprofloxacin HCl [Cipro] 250 mg PO Q12HR #6 tablet Discharge Medication List Donepezil [Aricept] 10 mg PO DAILY 08/17/14 [History] Pantoprazole Sodium [Protonix] 40 mg PO DAILY 08/17/14 [History] amantadine HCL [Symmetrel] 100 mg PO BID 08/17/14 [History] lamoTRIgine [LaMICtal] 25 mg PO BID 08/17/14 [History] Rosuvastatin Calcium [Crestor] 5 mg PO W/LUNCH 02/20/21 [History] Sertraline [Zoloft] 100 mg PO DAILY 02/20/21 [History] Ciprofloxacin HCl [Cipro] 250 mg PO Q12HR #6 tablet 08/12/21 [Rx] Metoprolol Tartrate [Lopressor] 12.5 mg PO BID 08/20/21 [History] Follow up Appointment(s)/Referral(s): Christianne Hartman MD [Primary Care Provider] - 1-2 days [facility] Visiting Nurse, [NON-STAFF] - 1-2 Days Patient Instructions/Handouts: Urinary Tract Infection in Men (DC) Discharge/Stand Alone Forms: Who Do I Call?, Personal Duplicator Punch Operator Discharge Disposition: HOME SELF-CARE
--- NOTE | 2021-08-25 08:43 | P.PN ---
Subjective Progress Note Date: 08/25/21 (delayed entry seen on 08/24/21 at 0830) Patient is a 70-year-old male with recent radical prostatectomy and lymph node removal, hernia repair with pathology consistent with aspart adenocarcinoma, dementia, and dyslipidemia who presented with weakness, nausea, and swelling area and in the ER he was noted to be febrile with a T-max of 102.2. CBC demonstrated a white blood cell count 23.8. CT abdomen and pelvis demonstrated left-sided hydronephrosis without obstructing lesion as well as abdominal ascites. Chest CT showed no evidence of pulmonary embolism. COVID-19 testing was negative. Urinalysis was consistent with possible urinary tract infection. He was admitted and started on IV antibiotics. Urine showed MSSA Patient seen and examined at bedside. This morning having multiple formed stools and then developed some vomiting. No abd pain, no chest pain, no shortness of br eath. General: non toxic, no distress, appears at stated age Derm: warm, dry Head: atraumatic, normocephalic, symmetric Eyes: EOMI, no lid lag, anicteric sclera Mouth: no lip lesion, mucus membranes moist Cardiovascular: S1S2 reg, no murmur, positive posterior tibial pulse bilateral, Lungs: CTA bilateral, no rhonchi, no rales , no accessory muscle use Abdominal: + hyperactive bowel sounds soft, + tender to palpation periumbilical, no guarding, no appreciable organomegaly Ext: no gross muscle atrophy, no edema, no contractures Neuro: CN II-XI grossly intact, no focal neuro deficits Psych: Alert, oriented, appropriate affect Assessment/plan: Sepsis secondary to left-sided pyelonephritis, mcduffie catheter present on admission - continue rocephine, d/w ID and plan is for Keflex for a total of 2 weeks of ABX on discharge. -Follow up urine culture, growing MSSA -Normal saline Decreased -Blood culture, NGTD -ID recs appreciated -Pain control -Urology recs Diarrhea and vomiting - check abdominal x-ray (was negative) - add lactobacillus - still formed so not appropriate for c-diff testing. Status post radical prostatectomy Prostate adenocarcinoma Abdominal ascites, likely hemorrhagic/postsurgical -Urology following -Liver function tests are normal -Previous echo done on 08/06 was essentially normal for age Dementia Hyperlipidemia Mood disorder -Continue current medications - Home health has been arranged for the patinet and we disussed that he needs to try to eat, if able to tolerate diet then medically optimized to consider discharge when determined appropraite by urology. Patient is full code Chemical DVT prophylaxis held in setting of hematuria Objective - Vital Signs Vital signs: Vital Signs Temp 97.7 F 08/25/21 04:49 Pulse 79 08/25/21 04:49 Resp 18 08/25/21 04:49 BP 153/90 08/25/21 04:49 Pulse Ox 95 08/25/21 04:49 FiO2 Intake & Output 08/24/21 08/25/21 08/25/21 18:59 06:59 18:59 Intake Total 900 1550 Output Total 1600 1700 500 Balance -700 -150 -500 Intake: IV 900 Sodium Chloride 0.9% 1, 900 000 ml @ 75 mls/hr IV . [id number] [facility] Rx#:[id number] Intake, IV Titration 950 Amount Sodium Chloride 0.9% 1, 900 000 ml @ 75 mls/hr IV . [id number] [facility] Rx#:[id number] ceFAZolin 2 gm In Sodium 50 Chloride 0.9% 50 ml @ 100 mls/hr IVPB Q8HR [facility] Rx# :[id number] Oral 600 Output: Urine 1600 1700 500 Other: Voiding Method Indwelling Catheter Indwelling Catheter # Bowel Movements 1 - Labs CBC & Chem 7: 08/24/21 07:59 08/24/21 07:59 Labs: Abnormal Lab Results - Last 24 Hours (Table) 08/24/21 08/24/21 Range/Units 07:59 07:59 RBC 3.74 L (4.40-5.60) X 10*6/uL Hgb 10.9 L (13.0-17.0) g/dL Hct 34.0 L (39.6-50.0) % Immature Gran # 0.12 H (0.00-0.04) X 10*3/uL Lymphocytes # 0.66 L (0.90-5.00) X 10*3/uL Eosinophils # 0.84 H (0.04-0.35) X 10*3/uL BUN/Creatinine Ratio 10.78 L (12.00-20.00) Ratio Calcium 8.1 L (8.7-10.3) mg/dL Total Bilirubin 0.20 L (0.30-1.20) mg/dL AST 61 H (14-35) U/L ALT 75 H (10-49) U/L Total Protein 5.0 L (6.2-8.2) g/dL Albumin 2.9 L (3.8-4.9) g/dL Albumin/Globulin Ratio 1.38 L (1.60-3.17) g/dL Microbiology - Last 24 Hours (Table) 08/20/21 16:45 Blood Culture - Preliminary Blood No Growth after 96 hours 08/20/21 16:30 Blood Culture - Preliminary Blood No Growth after 96 hours
[2021-08-25] MEDS: METOPROLOL TARTRATE 12.5 MG TAB PO SCH ×2 (08:48→20:23)
[2021-08-25] MEDS: SERTRALINE 100 MG TAB PO SCH (08:48)
[2021-08-25] MEDS: DONEPEZIL 10 MG TAB PO SCH (08:48)
[2021-08-25] MEDS: lamoTRIgine 25 MG TAB PO SCH ×2 (08:48→20:23)
[2021-08-25] MEDS: PANTOPRAZOLE 40 MG TABLET PO SCH (08:48)
[2021-08-25] MEDS: LACTOBACILLUS ACIDOPH & BULGAR 1 EACH PACKET PO SCH ×3 (08:48→20:24)
--- NOTE | 2021-08-25 08:52 | P.PN ---
Subjective Progress Note Date: 08/25/21 Patient is a 70-year-old male with recent radical prostatectomy and lymph node removal, hernia repair with pathology consistent with aspart adenocarcinoma, dementia, and dyslipidemia who presented with weakness, nausea, and swelling area and in the ER he was noted to be febrile with a T-max of 102.2. CBC demonstrated a white blood cell count 23.8. CT abdomen and pelvis demonstrated left-sided hydronephrosis without obstructing lesion as well as abdominal ascites. Chest CT showed no evidence of pulmonary embolism. COVID-19 testing was negative. Urinalysis was consistent with possible urinary tract infection. He was admitted and started on IV antibiotics. Urine showed MSSA Patient seen and examined at bedside. Less bowel movement, no more vomiting, still some incontinence. No abd pain, no chest pain, no shortness of breath. General: non toxic, no distress, appears at stated age Derm: warm, dry Head: atraumatic, normocephalic, symmetric Eyes: EOMI, no lid lag, anicteric sclera Mouth: no lip lesion, mucus membranes moist Cardiovascular: S1S2 reg, no murmur, positive posterior tibial pulse bilateral, Lungs: CTA bilateral, no rhonchi, no rales , no accessory muscle use Abdominal: + hyperactive bowel sounds soft, + tender to palpation periumbilical, no guarding, no appreciable organomegaly Ext: no gross muscle atrophy, no edema, no contractures Neuro: CN II-XI grossly intact, no focal neuro deficits Psych: Alert, oriented, appropriate affect Assessment/plan: Sepsis secondary to left-sided pyelonephritis, mcduffie catheter present on admission - Keflex ordered for discharge. -Normal saline Decreased -Blood culture, NGTD -ID recs appreciated -Pain control -Urology recs Diarrhea and vomiting - improving - conitnue lactobacillus Status post radical prostatectomy Prostate adenocarcinoma Abdominal ascites, likely hemorrhagic/postsurgical -Urology following -Liver function tests are normal -Previous echo done on 08/06 was essentially normal for age Dementia Hyperlipidemia Mood disorder -Continue current medications tolerating a diet, per nursing concerned about bowel movements still, has been discharged by urology. I did address home meds on med rec and added ABX for the patient. Nursing to alert me if diarrhea worsens or nausea recurrs. CM will speak with about ability to care for patient at home. Patient is full code Chemical DVT prophylaxis held in setting of hematuria Objective - Vital Signs Vital signs: Vital Signs Temp 97.7 F 08/25/21 04:49 Pulse 79 08/25/21 04:49 Resp 18 08/25/21 04:49 BP 153/90 08/25/21 04:49 Pulse Ox 95 08/25/21 04:49 FiO2 Intake & Output 08/24/21 08/25/21 08/25/21 18:59 06:59 18:59 Intake Total 900 1550 Output Total 1600 1700 500 Balance -700 -150 -500 Intake: IV 900 Sodium Chloride 0.9% 1, 900 000 ml @ 75 mls/hr IV . [id number] [facility] Rx#:[id number] Intake, IV Titration 950 Amount Sodium Chloride 0.9% 1, 900 000 ml @ 75 mls/hr IV . [id number] [facility] Rx#:[id number] ceFAZolin 2 gm In Sodium 50 Chloride 0.9% 50 ml @ 100 mls/hr IVPB Q8HR [facility] Rx# :[id number] Oral 600 Output: Urine 1600 1700 500 Other: Voiding Method Indwelling Catheter Indwelling Catheter # Bowel Movements 1 - Labs CBC & Chem 7: 08/24/21 07:59 08/24/21 07:59 Labs: Abnormal Lab Results - Last 24 Hours (Table) 08/24/21 08/24/21 Range/Units 07:59 07:59 RBC 3.74 L (4.40-5.60) X 10*6/uL Hgb 10.9 L (13.0-17.0) g/dL Hct 34.0 L (39.6-50.0) % Immature Gran # 0.12 H (0.00-0.04) X 10*3/uL Lymphocytes # 0.66 L (0.90-5.00) X 10*3/uL Eosinophils # 0.84 H (0.04-0.35) X 10*3/uL BUN/Creatinine Ratio 10.78 L (12.00-20.00) Ratio Calcium 8.1 L (8.7-10.3) mg/dL Total Bilirubin 0.20 L (0.30-1.20) mg/dL AST 61 H (14-35) U/L ALT 75 H (10-49) U/L Total Protein 5.0 L (6.2-8.2) g/dL Albumin 2.9 L (3.8-4.9) g/dL Albumin/Globulin Ratio 1.38 L (1.60-3.17) g/dL Microbiology - Last 24 Hours (Table) 08/20/21 16:45 Blood Culture - Preliminary Blood No Growth after 96 hours 08/20/21 16:30 Blood Culture - Preliminary Blood No Growth after 96 hours
[2021-08-25] MEDS: ATORVASTATIN 10 MG TAB PO SCH (12:46)
--- NOTE | 2021-08-25 22:11 | P.PN ---
Subjective Progress Note Date: 08/24/21 Principal diagnosis: Urinary tract infection Patient is a 70-year-old male with a past medical history significant for kidney stones and prostate cancer presented to hospital with fatigue weakness fever and has been diagnosed with the complicated intact infection. On today's evaluation that is 08/24/2021, the patient continues to be afebrile, the patient is breathing comfortably on room air, the patient denies any chest pain shortness of breath , did have minimal cough no abdominal pain or diarrhea Objective - Vital Signs Vital signs: Vital Signs Temp 98.3 F 08/24/21 11:57 Pulse 82 08/24/21 11:57 Resp 18 08/24/21 11:57 BP 144/86 08/24/21 11:57 Pulse Ox 96 08/24/21 11:57 FiO2 Intake & Output 08/23/21 08/24/21 08/24/21 18:59 06:59 18:59 Intake Total 925 590 Output Total 1600 Balance 925 590 -1600 Intake: Intake, IV Titration 925 Amount Sodium Chloride 0.9% 1, 825 000 ml @ 75 mls/hr IV . [id number] [facility] Rx#:[id number] ceFAZolin 2 gm In Sodium 50 Chloride 0.9% 50 ml @ 100 mls/hr IVPB Q8HR [facility] Rx# :[id number] cefTRIAXone 2 gm In 50 Sodium Chloride 0.9% 50 ml @ 100 mls/hr IVPB Q24HR [facility] Rx#:[id number] Oral 590 Output: Urine 1600 Other: Voiding Method Indwelling Catheter Indwelling Catheter Indwelling Catheter # Voids 2 # Bowel Movements 1 1 - Exam GENERAL DESCRIPTION: An elderly male lying in bed in no distress RESPIRATORY SYSTEM: Unlabored breathing , decreased breath sounds at bases HEART: S1 S2 regular rate and rhythm , ABDOMEN: Soft , no tenderness EXTREMITIES: No edema feet - Labs CBC & Chem 7: 08/24/21 07:59 08/24/21 07:59 Labs: Abnormal Lab Results - Last 24 Hours (Table) 08/24/21 08/24/21 Range/Units 07:59 07:59 RBC 3.74 L (4.40-5.60) X 10*6/uL Hgb 10.9 L (13.0-17.0) g/dL Hct 34.0 L (39.6-50.0) % Immature Gran # 0.12 H (0.00-0.04) X 10*3/uL Lymphocytes # 0.66 L (0.90-5.00) X 10*3/uL Eosinophils # 0.84 H (0.04-0.35) X 10*3/uL BUN/Creatinine Ratio 10.78 L (12.00-20.00) Ratio Calcium 8.1 L (8.7-10.3) mg/dL Total Bilirubin 0.20 L (0.30-1.20) mg/dL AST 61 H (14-35) U/L ALT 75 H (10-49) U/L Total Protein 5.0 L (6.2-8.2) g/dL Albumin 2.9 L (3.8-4.9) g/dL Albumin/Globulin Ratio 1.38 L (1.60-3.17) g/dL Microbiology - Last 24 Hours (Table) 08/20/21 16:45 Blood Culture - Preliminary Blood No Growth after 72 hours 08/20/21 16:30 Blood Culture - Preliminary Blood No Growth after 72 hours Assessment and Plan (1) Pyelonephritis Current Visit: Yes Status: Acute Code(s): N12 - TUBULO-INTERSTITIAL NEPHRITIS, NOT SPCF ACUTE OR CHRONIC SNOMED Code(s): 11206824 Plan: 1patient presented to hospital with sepsis and respiratory have fever elevated white count significantly positive UA likely the source of infection with urine now showing staph auras with question of possible MSSA versus MRSA. 2patient urine has been finalized with MSSA blood culture had been negative CT with mild left-sided hydronephrosis, patient to continue with cefazolin 2 g every 8 hours Time with Patient: Less than 30
--- NOTE | 2021-08-25 22:12 | P.PN ---
Subjective Progress Note Date: 08/25/21 Principal diagnosis: Urinary tract infection Patient is a 70-year-old male with a past medical history significant for kidney stones and prostate cancer presented to hospital with fatigue weakness fever and has been diagnosed with the complicated intact infection. On today's evaluation that is 08/25/2021, the patient remains to be afebrile, the patient is breathing comfortably on room air, the patient denies any chest pain, the patient did have minimal cough, the patient denies abdominal pain or diarrhea Objective - Vital Signs Vital signs: Vital Signs Temp 98.5 F 08/25/21 12:13 Pulse 66 08/25/21 12:13 Resp 13 08/25/21 12:13 BP 122/76 08/25/21 12:13 Pulse Ox 96 08/25/21 12:13 FiO2 Intake & Output 08/24/21 08/25/21 08/25/21 18:59 06:59 18:59 Intake Total 900 1550 Output Total 1600 1700 500 Balance -700 -150 -500 Intake: IV 900 Sodium Chloride 0.9% 1, 900 000 ml @ 75 mls/hr IV . [id number] [facility] Rx#:[id number] Intake, IV Titration 950 Amount Sodium Chloride 0.9% 1, 900 000 ml @ 75 mls/hr IV . [id number] [facility] Rx#:[id number] ceFAZolin 2 gm In Sodium 50 Chloride 0.9% 50 ml @ 100 mls/hr IVPB Q8HR [facility] Rx# :[id number] Oral 600 Output: Urine 1600 1700 500 Other: Voiding Method Indwelling Catheter Indwelling Catheter Indwelling Catheter # Bowel Movements 1 - Exam GENERAL DESCRIPTION: An elderly male lying in bed in no distress RESPIRATORY SYSTEM: Unlabored breathing , decreased breath sounds at bases HEART: S1 S2 regular rate and rhythm , ABDOMEN: Soft , no tenderness EXTREMITIES: No edema feet - Labs CBC & Chem 7: 08/24/21 07:59 08/24/21 07:59 Labs: Microbiology - Last 24 Hours (Table) 08/20/21 16:45 Blood Culture - Preliminary Blood No Growth after 96 hours 08/20/21 16:30 Blood Culture - Preliminary Blood No Growth after 96 hours Assessment and Plan (1) Pyelonephritis Current Visit: Yes Status: Acute Code(s): N12 - TUBULO-INTERSTITIAL NEPHRITIS, NOT SPCF ACUTE OR CHRONIC SNOMED Code(s): 44328542 Plan: 1patient presented to hospital with sepsis and respiratory have fever elevated white count significantly positive UA likely the source of infection with urine now showing staph auras with question of possible MSSA versus MRSA. 2patient seemed to have shown clinical improvement, the patient urine has been finalized with MSSA blood culture had been negative CT with mild left-sided hydronephrosis, patient to continue with cefazolin 2 g every 8 hours while inpatient finishing therapy with oral Keflex Time with Patient: Less than 30
[2021-08-26] MEDS: PANTOPRAZOLE 40 MG TABLET PO SCH (08:46)
[2021-08-26] MEDS: SERTRALINE 100 MG TAB PO SCH (08:46)
[2021-08-26] MEDS: ATORVASTATIN 10 MG TAB PO SCH (08:46)
[2021-08-26] MEDS: LACTOBACILLUS ACIDOPH & BULGAR 1 EACH PACKET PO SCH ×3 (08:46→21:01)
[2021-08-26] MEDS: DONEPEZIL 10 MG TAB PO SCH (08:46)
[2021-08-26] MEDS: lamoTRIgine 25 MG TAB PO SCH ×2 (08:46→21:01)
[2021-08-26] MEDS: METOPROLOL TARTRATE 12.5 MG TAB PO SCH ×2 (08:46→21:01)
[2021-08-26 09:36] VITALS: BMI 29.5
--- NOTE | 2021-08-26 13:08 | P.PN ---
Subjective Progress Note Date: 08/26/21 The patient is in the hospital with urinary tract infection with sepsis post radical prostatectomy. He is slowly recuperating. He has been on appropriate antibiotics. His catheter was removed and he has had some incontinence as expected post radical prostatectomy. He's had some diarrhea. The was uncertain as to whether she could take the patient home thus longterm rehab facilities were considered. He seems to be much better however. He is able to go to the bathroom. His diarrhea seems to be subsiding. My recommendation is to encourage the patient to ambulate, he is a bathroom on his own and care for himself. Does not need to go to a rehab facility or a longterm temporarily. We'll see how he does over the weekend before making a final decision. Objective - Vital Signs Vital signs: Vital Signs Temp 98.8 F 08/26/21 11:18 Pulse 68 08/26/21 11:18 Resp 16 08/26/21 11:18 BP 112/64 08/26/21 11:18 Pulse Ox 95 08/26/21 11:18 FiO2 Intake & Output 08/25/21 08/26/21 08/26/21 18:59 06:59 18:59 Intake Total 950 Output Total 500 Balance -500 950 Weight 93.44 kg Intake: IV 900 Sodium Chloride 0.9% 1, 900 000 ml @ 75 mls/hr IV . [id number] [facility] Rx#:[id number] Intake, IV Titration 50 Amount ceFAZolin 2 gm In Sodium 50 Chloride 0.9% 50 ml @ 100 mls/hr IVPB Q8HR [facility] Rx# :[id number] Output: Urine 500 Other: Voiding Method Indwelling Catheter Indwelling Catheter Toilet Urinal # Voids 4 3 1 # Bowel Movements 6 6 1 - Labs CBC & Chem 7: 08/24/21 07:59 08/24/21 07:59 Labs: Microbiology - Last 24 Hours (Table) 08/20/21 16:45 Blood Culture - Preliminary Blood No Growth after 120 hours 08/20/21 16:30 Blood Culture - Preliminary Blood No Growth after 120 hours
--- NOTE | 2021-08-26 14:08 | P.PN ---
Subjective Progress Note Date: 08/26/21 Principal diagnosis: Urinary tract infection Patient is a 70-year-old male with a past medical history significant for kidney stones and prostate cancer presented to hospital with fatigue weakness fever and has been diagnosed with the complicated intact infection. On today's evaluation that is 08/26/2021, the patient continues to be afebrile, the patient is breathing comfortably on room air, the patient denies any chest pain or cough, the patient denies abdominal pain and no diarrhea has been reported Objective - Vital Signs Vital signs: Vital Signs Temp 98.4 F 08/26/21 05:18 Pulse 74 08/26/21 05:18 Resp 18 08/26/21 05:18 BP 115/68 08/26/21 05:18 Pulse Ox 94 L 08/26/21 05:18 FiO2 Intake & Output 08/25/21 08/26/21 08/26/21 18:59 06:59 18:59 Intake Total 950 Output Total 500 Balance -500 950 Weight 93.44 kg Intake: IV 900 Sodium Chloride 0.9% 1, 900 000 ml @ 75 mls/hr IV . [id number] [facility] Rx#:[id number] Intake, IV Titration 50 Amount ceFAZolin 2 gm In Sodium 50 Chloride 0.9% 50 ml @ 100 mls/hr IVPB Q8HR [facility] Rx# :[id number] Output: Urine 500 Other: Voiding Method Indwelling Catheter Indwelling Catheter Toilet Urinal # Voids 4 3 1 # Bowel Movements 6 6 1 - Exam GENERAL DESCRIPTION: An elderly male lying in bed in no distress RESPIRATORY SYSTEM: Unlabored breathing , decreased breath sounds at bases HEART: S1 S2 regular rate and rhythm , ABDOMEN: Soft , no tenderness EXTREMITIES: No edema feet - Labs CBC & Chem 7: 08/24/21 07:59 08/24/21 07:59 Labs: Microbiology - Last 24 Hours (Table) 08/20/21 16:45 Blood Culture - Preliminary Blood No Growth after 120 hours 08/20/21 16:30 Blood Culture - Preliminary Blood No Growth after 120 hours Assessment and Plan (1) Pyelonephritis Current Visit: Yes Status: Acute Code(s): N12 - TUBULO-INTERSTITIAL NEPHRITIS, NOT SPCF ACUTE OR CHRONIC SNOMED Code(s): 76760798 Plan: 1patient presented to hospital with sepsis and respiratory have fever elevated white count significantly positive UA likely the source of infection with urine now showing staph auras with question of possible MSSA versus MRSA. 2patient has shown clinical improvement, the patient urine has been finalized with MSSA blood culture had been negative CT with mild left-sided hydronephrosis, patient currently being treated with cefazolin 2 g every 8 hours while inpatient finishing therapy with oral Keflex
--- NOTE | 2021-08-26 15:22 | P.PN ---
Subjective Progress Note Date: 08/26/21 Hospital course: Patient is a 70-year-old male with recent radical prostatectomy and lymph node removal, hernia repair with pathology consistent with acinar adenocarcinoma, dementia, and dyslipidemia. He presented to the hospital on 08/20/21 with weakness, nausea, and swelling to his legs and scrotum. Patient underwent full evaluation in the ER and was noted to be febrile with a T-max of 102.2. CBC demonstrated a white blood cell count 23.8. CT abdomen and pelvis demonstrated left-sided hydronephrosis without obstructing lesion as well as abdominal ascites. Chest CT showed no evidence of pulmonary embolism. COVID-19 testing was negative. Urinalysis was consistent with possible urinary tract infection. He was admitted under urology team and started on IV antibiotics. We were consulted for continued medical management throughout patient's hospitalization. Urine culture was positive for MSSA. Physical examination: Patient seen and fully evaluated at the bedside. He was sitting up in the recliner and appeared to be doing well this morning. Patient is currently awaiting approval for SNF placement with [facility]. Patient remains on IV antibiotics cefazolin and plan is for discharge on Keflex. Patient denies having any headache, lightheadedness, dizziness, chest pain, palpitations, shortness of breath, or any other complaints at this time. Mcduffie catheter was removed on 08/25/21 and patient has been urinating without any reported difficulties. Patient is medically stable for discharge once approval for SNF is received. General: non toxic, no distress, appears at stated age Derm: warm, dry Head: atraumatic, normocephalic, symmetric Eyes: EOMI, no lid lag, anicteric sclera Mouth: no lip lesion, mucus membranes moist Cardiovascular: S1S2 reg, no murmur, positive posterior tibial pulse bilateral, Lungs: CTA bilateral, no rhonchi, no rales , no accessory muscle use Abdominal: soft, nontender to palpation, no guarding, no appreciable organomegaly Ext: no gross muscle atrophy, no edema, no contractures Neuro: CN II-XI grossly intact, no focal neuro deficits Psych: Alert, oriented, appropriate affect Assessment and plan of care: Sepsis secondary to left-sided pyelonephritis, mcduffie catheter present on admission -Keflex ordered for discharge. -Normal saline infusion was discontinued as patient is tolerating oral intake. -Blood culture, NGTD -ID recs appreciated -Pain control -Urology recs Diarrhea and vomiting -Improved - conitnue lactobacillus Status post radical prostatectomy Prostate adenocarcinoma Abdominal ascites, likely hemorrhagic/postsurgical -Urology following -Liver function tests are normal -Previous echo done on 08/06 was essentially normal for age Dementia Hyperlipidemia Mood disorder -Continue current medications Patient is full code Chemical DVT prophylaxis held in setting of hematuria Thank you for allowing us to participate in the care of this pleasant patient. Do not hesitate to contact us with questions. Someone can be reached from the [facility] hospitalist group all hours of the day at [phone] or via [employer]. I reviewed the documentation as provided by the AMERICO above, who is the original author of this note. I agree with the documented assessment and plan, with the following changes: None Objective - Vital Signs Vital signs: Vital Signs Temp 98.4 F 08/26/21 05:18 Pulse 74 08/26/21 05:18 Resp 18 08/26/21 05:18 BP 115/68 08/26/21 05:18 Pulse Ox 94 L 08/26/21 05:18 FiO2 Intake & Output 08/25/21 08/26/21 08/26/21 18:59 06:59 18:59 Intake Total 950 Output Total 500 Balance -500 950 Intake: IV 900 Sodium Chloride 0.9% 1, 900 000 ml @ 75 mls/hr IV . [id number] [facility] Rx#:[id number] Intake, IV Titration 50 Amount ceFAZolin 2 gm In Sodium 50 Chloride 0.9% 50 ml @ 100 mls/hr IVPB Q8HR [facility] Rx# :[id number] Output: Urine 500 Other: Voiding Method Indwelling Catheter Indwelling Catheter # Voids 4 3 # Bowel Movements 6 6 - Labs CBC & Chem 7: 08/24/21 07:59 08/24/21 07:59 Labs: Microbiology - Last 24 Hours (Table) 08/20/21 16:45 Blood Culture - Preliminary Blood No Growth after 120 hours 08/20/21 16:30 Blood Culture - Preliminary Blood No Growth after 120 hours
[2021-08-27] MEDS: PANTOPRAZOLE 40 MG TABLET PO SCH (09:08)
[2021-08-27] MEDS: lamoTRIgine 25 MG TAB PO SCH (09:08)
[2021-08-27] MEDS: LACTOBACILLUS ACIDOPH & BULGAR 1 EACH PACKET PO SCH (09:08)
[2021-08-27] MEDS: SERTRALINE 100 MG TAB PO SCH (09:08)
[2021-08-27] MEDS: METOPROLOL TARTRATE 12.5 MG TAB PO SCH (09:08)
[2021-08-27] MEDS: DONEPEZIL 10 MG TAB PO SCH (09:08)
[2021-08-27 12:21] VITALS: BP 111/73; PULSE 66; RESP 16; TEMP 97.8
--- NOTE | 2021-08-27 12:25 | P.PN ---
Subjective Progress Note Date: 08/27/21 The patient had a urinary tract infection with sepsis status post radical prostatectomy. He is afebrile and he is improved from that. He is on culture specific antibiotics. The catheters removed and he has had some incontinence. He also had some diarrhea which is subsiding. A lengthy discussion with the patient explaining to him that the incontinence may take a while to correct itself. As long as the patient can change his own pull up cleaning himself after bowel movements there is no reason for him to go to a rehab facility. Tolerated regular diet is afebrile and his pain is under control. My standpoint he can be discharged home on Keflex and follow-up in the office in one week. Objective - Vital Signs Vital signs: Vital Signs Temp 97.8 F 08/27/21 11:27 Pulse 66 08/27/21 11:27 Resp 16 08/27/21 11:27 BP 111/73 08/27/21 11:27 Pulse Ox 97 08/27/21 11:27 FiO2 Intake & Output 08/26/21 08/27/21 08/27/21 18:59 06:59 18:59 Intake Total 100 300 Balance 100 300 Weight 93.44 kg Intake: Intake, IV Titration 100 Amount ceFAZolin 2 gm In Sodium 100 Chloride 0.9% 50 ml @ 100 mls/hr IVPB Q8HR [facility] Rx# :[id number] Oral 300 Other: Voiding Method Toilet Toilet Toilet Urinal Urinal Urinal # Voids 1 8 1 # Bowel Movements 1 4 1 - Labs CBC & Chem 7: 08/24/21 07:59 08/24/21 07:59 Labs: Microbiology - Last 24 Hours (Table) 08/20/21 16:30 Blood Culture - Final Blood No Growth after 144 hours 08/20/21 16:45 Blood Culture - Final Blood No Growth after 144 hours
[2021-08-27] MEDS: ATORVASTATIN 10 MG TAB PO SCH (13:21)
--- NOTE | 2021-08-27 13:52 | P.PN ---
Subjective Progress Note Date: 08/27/21 Hospital course: Patient is a 70-year-old male with recent radical prostatectomy and lymph node removal, hernia repair with pathology consistent with acinar adenocarcinoma, dementia, and dyslipidemia. He presented to the hospital on 08/20/21 with weakness, nausea, and swelling to his legs and scrotum. Patient underwent full evaluation in the ER and was noted to be febrile with a T-max of 102.2. CBC demonstrated a white blood cell count 23.8. CT abdomen and pelvis demonstrated left-sided hydronephrosis without obstructing lesion as well as abdominal ascites. Chest CT showed no evidence of pulmonary embolism. COVID-19 testing was negative. Urinalysis was consistent with possible urinary tract infection. He was admitted under urology team and started on IV antibiotics. We were consulted for continued medical management throughout patient's hospitalization. Urine culture was positive for MSSA. Physical examination: Patient seen and fully evaluated at the bedside. He appears to be doing well. Patient has been ambulating to and from restroom. He denies that this time including headache, lightheadedness, dizziness, chest pain, palpitation or illness of breath. Patient does report having 1 episode of vomiting earlier this morning but denies any further episodes of diarrhea. Patient continues to urinate without difficulty status post removal of Mcduffie catheter on 08/25. Patient is medically stable for discharge once approval for SNF is received. General: non toxic, no distress, appears at stated age Derm: warm, dry Head: atraumatic, normocephalic, symmetric Eyes: EOMI, no lid lag, anicteric sclera Mouth: no lip lesion, mucus membranes moist Cardiovascular: S1S2 reg, no murmur, positive posterior tibial pulse bilateral, Lungs: CTA bilateral, no rhonchi, no rales , no accessory muscle use Abdominal: soft, nontender to palpation, no guarding, no appreciable organomegaly Ext: no gross muscle atrophy, no edema, no contractures Neuro: CN II-XI grossly intact, no focal neuro deficits Psych: Alert, oriented, appropriate affect Assessment and plan of care: Sepsis secondary to left-sided pyelonephritis, mcduffie catheter present on admission -Keflex ordered for discharge. -Normal saline infusion was discontinued as patient is tolerating oral intake. -Blood culture, NGTD -ID recs appreciated -Pain control -Urology recs Diarrhea and vomiting, improved -Diarrhea has resolved. -Patient reports one episode of vomiting over the past 48 hours -Conitnue lactobacillus Status post radical prostatectomy Prostate adenocarcinoma Abdominal ascites, likely hemorrhagic/postsurgical -Urology following -Liver function tests are normal -Previous echo done on 08/06 was essentially normal for age Dementia Hyperlipidemia Mood disorder -Continue current medications Patient is full code Chemical DVT prophylaxis held in setting of hematuria Thank you for allowing us to participate in the care of this pleasant patient. Do not hesitate to contact us with questions. Someone can be reached from the [facility] hospitalist group all hours of the day at [phone] or via [employer] [facility]. I reviewed the documentation as provided by the AMERICO above, who is the original author of this note. I agree with the documented assessment and plan, with the following changes: none Objective - Vital Signs Vital signs: Vital Signs Temp 98.1 F 08/27/21 04:26 Pulse 86 08/27/21 04:26 Resp 18 08/27/21 04:26 BP 122/83 08/27/21 04:26 Pulse Ox 95 08/27/21 04:26 FiO2 Intake & Output 08/26/21 08/27/21 08/27/21 18:59 06:59 18:59 Intake Total 100 300 Balance 100 300 Weight 93.44 kg Intake: Intake, IV Titration 100 Amount ceFAZolin 2 gm In Sodium 100 Chloride 0.9% 50 ml @ 100 mls/hr IVPB Q8HR [facility] Rx# :[id number] Oral 300 Other: Voiding Method Toilet Toilet Urinal Urinal # Voids 1 8 # Bowel Movements 1 4 - Labs CBC & Chem 7: 08/24/21 07:59 08/24/21 07:59 Labs: Microbiology - Last 24 Hours (Table) 08/20/21 16:30 Blood Culture - Final Blood No Growth after 144 hours 08/20/21 16:45 Blood Culture - Final Blood No Growth after 144 hours
== END 2021-08-27 14:55 | disposition home health service (06) | DRG 698 ==
LOC: EC 12:37 → 6NMEDSUR 15:40 → 5NMEDONC 17:11
PROVIDERS: ADMIT Urology; ATTEND Urology
DX: T83.511A Infection and inflammatory reaction due to indwelling urethral catheter, initial encounter (principal); A41.01 Sepsis due to Methicillin susceptible Staphylococcus aureus; K56.7 Ileus, unspecified; N13.6 Pyonephrosis; R18.8 Other ascites; C61 Malignant neoplasm of prostate; E78.5 Hyperlipidemia, unspecified; F03.90 Unspecified dementia, unspecified severity, without behavioral disturbance, psychotic disturbance, mood disturbance, and anxiety; F39 Unspecified mood [affective] disorder; R19.7 Diarrhea, unspecified; N50.89 Other specified disorders of the male genital organs; R32 Unspecified urinary incontinence; Z20.822 Contact with and (suspected) exposure to COVID-19; R31.9 Hematuria, unspecified; K21.9 Gastro-esophageal reflux disease without esophagitis; Z98.890 Other specified postprocedural states; M19.90 Unspecified osteoarthritis, unspecified site; Z90.79 Acquired absence of other genital organ(s); Z98.42 Cataract extraction status, left eye; Z80.9 Family history of malignant neoplasm, unspecified; Z87.442 Personal history of urinary calculi; Z87.820 Personal history of traumatic brain injury; Z79.899 Other long term (current) drug therapy; Z88.0 Allergy status to penicillin; Z88.8 Allergy status to other drugs, medicaments and biological substances; Z88.6 Allergy status to analgesic agent; Z98.41 Cataract extraction status, right eye
CPT/HCPCS: 36415; 71275; 74018; 74022; 74177; 80053; 81001; 82150; 83605; 83690; 83735; 83880; 84484; 85025; 85610; 85730; 87040; 87077; 87086; 87186; 87635; 93005; 96365; 96375; 99285

== ENCOUNTER → 2021-09-22 | Outpatient (CLI) | payer MEDICARE | END | disposition home or self-care (01) | LOC: LABWHC1 14:52 | PROVIDERS: ATTEND Urology | DX: C61 Malignant neoplasm of prostate (principal) | CPT/HCPCS: 36415; 84153 ==

== ENCOUNTER 2021-11-01 18:38 | Emergency (ER) | payer MEDICARE ==
[2021-11-01 18:50] VITALS: BP 116/65; PULSE 68; RESP 18; TEMP 98.3
[2021-11-01] MEDS ORDERED: DIPH,PERTUS(ACELL)TETVAC-LF 0.5 ML VIAL IM ONE (18:59)
[2021-11-01] MEDS ORDERED: HYDROcodone/APAP 5-325MG 1 EACH TAB PO STA (18:59)
[2021-11-01] MEDS ORDERED: LIDOCAINE 1% INJ 10MG/ML (20 ML MDV) SQ ONE (18:59)
[2021-11-01] MEDS ORDERED: BACITRACIN OINT 1 EACH PACKET TOPICAL ONE (19:00)
--- NOTE | 2021-11-01 19:49 | CT ---
EXAMINATION TYPE: CT brain cspine wo con DATE OF EXAM: 11/01/2021 COMPARISON: 10/31/2019 HISTORY: Fall. CT DLP: 1516.5 mGycm Automated exposure control for dose reduction was used. Images of the brain and cervical spine obtained with no contrast. There is diffuse cerebral cortical atrophy. There is no mass effect or midline shift. No sign of intr acranial hemorrhage. The calvarium is intact. The cervical vertebra have normal alignment. Disc spaces show slight narrowing at C5-6. No compressio n fracture. There is minimal hypertrophic facet arthropathy. The skull base is intact. There is addis l aeration of the mastoid sinuses. IMPRESSION: There is some cerebral cortical atrophy similar to old exam. No acute intracranial abnormality. Minor degenerative changes in the cervical spine. No fracture. No adverse change compared to old exam .
--- NOTE | 2021-11-01 20:28 | ED ---
Fall HPI - General Chief Complaint: Fall Stated Complaint: fall Time Seen by Provider: 11/01/21 18:53 Source: patient Mode of arrival: wheelchair - History of Present Illness Initial Comments: Patient complains of injuries from a fall. He sustained a laceration to the scalp. He has no chest or belly or back pain. He has no nausea or vomiting. He has no focal weakness. He has no paresthesias. He had no loss of consciousness. - Related Data Home Medications Medication Instructions Recorded Confirmed Donepezil [Aricept] 10 mg PO DAILY 08/17/14 08/20/21 Pantoprazole Sodium [Protonix] 40 mg PO DAILY 08/17/14 08/20/21 amantadine HCL [Symmetrel] 100 mg PO BID 08/17/14 08/20/21 lamoTRIgine [LaMICtal] 25 mg PO BID 08/17/14 08/20/21 Rosuvastatin Calcium [Crestor] 5 mg PO W/LUNCH 02/20/21 08/20/21 Sertraline [Zoloft] 100 mg PO DAILY 02/20/21 08/20/21 Metoprolol Tartrate [Lopressor] 12.5 mg PO BID 08/20/21 08/20/21 Previous Rx's Medication Instructions Recorded Cephalexin [Keflex] 500 mg PO Q8HR 10 Days #30 cap 08/25/21 Lactobacillus Acidoph & Bulgar 1 each PO TID packet 08/25/21 [Lactinex] Allergies Allergy/AdvReac Type Severity Reaction Status Date / Time aspirin Allergy NAUSEA Verified 11/01/21 18:45 /VOMITING Penicillins Allergy Rash/Hives Verified 11/01/21 18:45 NSAIDS (Non-Steroidal AdvReac Unknown Nausea & Verified 11/01/21 18:45 Anti-Inflamma Vomiting-UPSET STOMACH Review of Systems ROS Statement: Those systems with pertinent positive or pertinent negative responses have been documented in the HPI. ROS Other: All systems not noted in ROS Statement are negative. 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, prostate cancer, kidney stones History of Any Multi-Drug Resistant Organisms: None Reported Past Surgical History: Hernia Repair, Orthopedic Surgery, Prostate Surgery Additional Past Surgical History / Comment(s): right shoulder surgery arthroscopy, surgery on right shoulder to cut end of bone and attach tendon, left ureteroscopy with laser lithotripsy 05/2021, bilateral cataracts, prostate surgery 08/10/2021 Past Anesthesia/Blood Transfusion Reactions: Postoperative Nausea & Vomiting (PONV) Additional Past Anesthesia/Blood Transfusion Reaction / Comment(s): severe PONV Past Psychological History: No Psychological Hx Reported Smoking Status: Never smoker Past Alcohol Use History: None Reported Past Drug Use History: None Reported - Past Family History Father Family Medical History: Cancer General Exam Limitations: no limitations General appearance: alert, in no apparent distress Head exam: Present: atraumatic, normocephalic, normal inspection Eye exam: Present: normal appearance, PERRL, EOMI. Absent: scleral icterus, conjunctival injection, periorbital swelling ENT exam: Present: normal exam, mucous membranes moist Neck exam: Present: normal inspection. Absent: tenderness, meningismus, lymphadenopathy Respiratory exam: Present: normal lung sounds bilaterally. Absent: respiratory distress, wheezes, rales, rhonchi, stridor Cardiovascular Exam: Present: regular rate, normal rhythm, normal heart sounds. Absent: systolic murmur, diastolic murmur, rubs, gallop, clicks GI/Abdominal exam: Present: soft, normal bowel sounds. Absent: distended, tenderness, guarding, rebound, rigid Extremities exam: Present: normal inspection, full ROM, normal capillary refill. Absent: tenderness, pedal edema, joint swelling, calf tenderness Back exam: Present: normal inspection Neurological exam: Present: alert, oriented X3, CN II-XII intact Psychiatric exam: Present: normal affect, normal mood Skin exam: Present: warm, dry, normal color, other (Large laceration on the scalp). Absent: rash Course Vital Signs 11/01/21 18:45 Temperature 98.3 F Pulse Rate 68 Respiratory 18 Rate Blood Pressure 116/65 O2 Sat by Pulse 95 Oximetry Procedures - Laceration Laceration #1 Consent Obtained: verbal consent Indication: laceration Site: scalp Size (cm): 4 Description: linear Depth: simple, single layer Anesthetic Used: lidocaine 1% Pre-repair: wound explored, irrigated extensively Type of Sutures: nylon Size of Sutures: 5-0 Technique: simple, interrupted Medical Decision Making - Medical Decision Making Patient presents with a scalp injury. CT head and neck is negative. The wound was repaired by myself without complication. Patient is stable for discharge. He will follow-up for suture removal. Disposition Clinical Impression: Fall Disposition: HOME SELF-CARE Condition: Good Instructions (If sedation given, give patient instructions): Fall Prevention (ED), Care For Your Stitches (DC), Laceration (ED), Head Laceration (ED) Is patient prescribed a controlled substance at d/c from ED?: No Referrals: Christianne Hartman MD [Primary Care Provider] - 1-2 days
== END 2021-11-01 20:53 | disposition home or self-care (01) ==
LOC: EC 18:38
DX: S01.01XA Laceration without foreign body of scalp, initial encounter (principal); Z23 Encounter for immunization; K21.9 Gastro-esophageal reflux disease without esophagitis; M19.90 Unspecified osteoarthritis, unspecified site; Z88.0 Allergy status to penicillin; Z88.6 Allergy status to analgesic agent; Z79.899 Other long term (current) drug therapy; W19.XXXA Unspecified fall, initial encounter
CPT/HCPCS: 72125; 70450; 90715; 99284; 90471; 12002; J2001

== ENCOUNTER → 2022-10-01 | Outpatient (CLI) | payer MEDICARE ==
[2022-10-01 22:24] LABS: Prostate Specific Antigen <0.01 ng/mL (0.000-6.500); Testosterone <10.00 ng/dL (86.98-780.10)
== END | disposition home or self-care (01) ==
LOC: LABWHC1 14:24
PROVIDERS: ATTEND Urology
DX: C61 Malignant neoplasm of prostate (principal)
CPT/HCPCS: 36415; 84153; 84403

== ENCOUNTER 2023-02-25 14:31 | Emergency (ER) | payer MEDICARE ==
--- NOTE | 2023-02-25 15:14 | ED ---
General Adult HPI - General Source: patient, family, RN notes reviewed Mode of arrival: ambulatory Limitations: no limitations <Jayla Melton - Last Filed: 03/28/23 17:16> - General Source: RN notes reviewed, old records reviewed, Caregiver Mode of arrival: ambulatory Limitations: no limitations - History of Present Illness -: days(s) Location: buttocks, right, upper extremity, lower extremity Radiation: extremity Severity scale (1-10): 6 Quality: aching, sharp Consistency: intermittent Improves with: none Worsens with: none Associated Symptoms: denies other symptoms Treatments Prior to Arrival: none <Deion Acuna - Last Filed: 04/06/23 14:16> - General Chief complaint: Fall Stated complaint: Fall Time Seen by Provider: 02/25/23 15:13 - History of Present Illness Initial comments: 72-year-old male presents emergency department chief complaint of fall. He states that he fell on Saturday. He states that it is very painful when he ambulates. He notes injuries to his right knee, hip, elbow. He denies hitting his head. (Jayla Melton) This is a 72-year-old male DF for evaluation of fall. Patient of fall a few days ago and now has had significant pain special exam. Moving. Pain in his elbow hip and right knee. Pain is mostly in his right knee, to the point of severity. Patient has no chest pain shortness breath or abdominal pain. Follows mechanical in nature. (Deion Acuna) - Related Data Home Medications Medication Instructions Recorded Confirmed Donepezil [Aricept] 10 mg PO DAILY 08/17/14 08/20/21 Pantoprazole Sodium [Protonix] 40 mg PO DAILY 08/17/14 08/20/21 amantadine HCL [Symmetrel] 100 mg PO BID 08/17/14 08/20/21 lamoTRIgine [LaMICtal] 25 mg PO BID 08/17/14 08/20/21 Rosuvastatin Calcium [Crestor] 5 mg PO W/LUNCH 02/20/21 08/20/21 Sertraline [Zoloft] 100 mg PO DAILY 02/20/21 08/20/21 Metoprolol Tartrate [Lopressor] 12.5 mg PO BID 08/20/21 08/20/21 Previous Rx's Medication Instructions Recorded Cephalexin [Keflex] 500 mg PO Q8HR 10 Days #30 cap 08/25/21 Lactobacillus Acidoph & Bulgar 1 each PO TID packet 08/25/21 [Lactinex] Allergies Allergy/AdvReac Type Severity Reaction Status Date / Time aspirin Allergy NAUSEA Verified 11/01/21 18:45 /VOMITING Penicillins Allergy Rash/Hives Verified 11/01/21 18:45 NSAIDS (Non-Steroidal AdvReac Unknown Nausea & Verified 11/01/21 18:45 Anti-Inflamma Vomiting-UPSET STOMACH Review of Systems ROS Other: All systems not noted in ROS Statement are negative. <Jayal Melton - Last Filed: 03/28/23 17:16> ROS Other: All systems not noted in ROS Statement are negative. <Deion Acuna - Last Filed: 04/06/23 14:16> ROS Statement: Those systems with pertinent positive or pertinent negative responses have been documented in the HPI. 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, prostate cancer, kidney stones History of Any Multi-Drug Resistant Organisms: None Reported Past Surgical History: Hernia Repair, Orthopedic Surgery, Prostate Surgery Additional Past Surgical History / Comment(s): right shoulder surgery arthroscopy, surgery on right shoulder to cut end of bone and attach tendon, left ureteroscopy with laser lithotripsy 05/2021, bilateral cataracts, prostate surgery 08/10/2021 Past Anesthesia/Blood Transfusion Reactions: Postoperative Nausea & Vomiting (PONV) Additional Past Anesthesia/Blood Transfusion Reaction / Comment(s): severe PONV Past Psychological History: No Psychological Hx Reported Smoking Status: Never smoker Past Alcohol Use History: None Reported Past Drug Use History: None Reported - Past Family History Father Family Medical History: Cancer <Jayla Melton - Last Filed: 03/28/23 17:16> General Exam Limitations: no limitations <Jayla Melton - Last Filed: 03/28/23 17:16> General appearance: alert, in no apparent distress Head exam: Present: atraumatic, normocephalic, normal inspection Eye exam: Present: normal appearance, PERRL, EOMI. Absent: scleral icterus, conjunctival injection, periorbital swelling ENT exam: Present: normal exam, mucous membranes moist Neck exam: Present: normal inspection. Absent: tenderness, meningismus, lymphadenopathy Respiratory exam: Present: normal lung sounds bilaterally. Absent: respiratory distress, wheezes, rales, rhonchi, stridor Cardiovascular Exam: Present: regular rate, normal rhythm, normal heart sounds. Absent: systolic murmur, diastolic murmur, rubs, gallop, clicks GI/Abdominal exam: Present: soft, normal bowel sounds. Absent: distended, tenderness, guarding, rebound, rigid Extremities exam: Present: normal inspection, full ROM, normal capillary refill. Absent: tenderness, pedal edema, joint swelling, calf tenderness Back exam: Present: normal inspection Neurological exam: Present: alert, oriented X3, CN II-XII intact Psychiatric exam: Present: normal affect, normal mood Skin exam: Present: warm, dry, intact, normal color. Absent: rash <Deion Acuna - Last Filed: 04/06/23 14:16> - General Exam Comments Initial Comments: Visual Physical Exam Vital signs reviewed General: Well-appearing, nontoxic, no acute distress. Head: Normocephalic, atraumatic Eyes: PERRLA, EOMI ENT: Airway patent Chest: Nonlabored breathing Skin: No visual rash, normal skin tone Neuro: Alert and oriented 3 Musculoskeletal: No gross abnormalities (RonaldkaJayla) Course <Deion Acuna - Last Filed: 04/06/23 14:16> Vital Signs 02/25/23 02/25/23 14:40 17:28 Temperature 98 F 98.8 F Pulse Rate 82 63 Respiratory 16 18 Rate Blood Pressure 135/84 O2 Sat by Pulse 97 98 Oximetry - Reevaluation(s) Reevaluation #1: Medical records reviewed (Deion Acuna) Reevaluation #2: Patient symptoms improved (Deion Acuna) Reevaluation #3: Patient informed of results questions answered (Deion Acuna) Reevaluation #4: Was pt. sent in by a medical professional or institution (, PA, ROOF PROMENADE TILE SETTER, urgent care, hospital, or intermediate...) When possible be specific @ -no Did you speak to anyone other than the patient for history (EMS, parent, family, police, friend...)? What history was obtained from this source @ -no Did you review nursing and triage notes (agree or disagree)? Why? @ -agree Are old charts reviewed (outside hosp., previous admission, EMS record, old EKG, old radiological studies, urgent care reports/EKG's, intermediate records)? Report findings @ -yes Differential Diagnosis (chest pain, altered mental status, abdominal pain women, abdominal pain men, vaginal bleeding, weakness, fever, dyspnea, syncope, headache, dizziness, GI bleed, back pain, seizure, CVA, palpatations, mental health, musculoskeletal)? @ -prior EKG interpreted by me (3pts min.). @ -no X-rays interpreted by me (1pt min.). @ -yes negative for acute disease CT interpreted by me (1pt min.). @ -no U/S interpreted by me (1pt. min.). @ -no What testing was considered but not performed or refused? (CT, X-rays, U/S, labs)? Why? @ -none What meds were considered but not given or refused? Why? @ -none Did you discuss the management of the patient with other professionals (professionals i.e. , PA, ROOF PROMENADE TILE SETTER, lab, RT, psych nurse, vp digital marketing social media and crm, tapeman, teacher, chief lending officer, classification case manager)? Give summary @ -no Was smoking cessation discussed for >3mins.? @ -no Was critical care preformed (if so, how long)? @ -no Were there social determinants of health that impacted care today? How? (Homelessness, low income, unemployed, alcoholism, drug addiction, transportation, low edu. Level, literacy, decrease access to med. care, long term, rehab)? @ -none Was there de-escalation of care discussed even if they declined (Discuss DNR or withdrawal of care, Hospice)? DNR status @ -no What co-morbidities impacted this encounter? (DM, HTN, Smoking, COPD, CAD, Cancer, CVA, ARF, Chemo, Hep., AIDS, mental health diagnosis, sleep apnea, morbid obesity)? @ -none Was patient admitted / discharged? Hospital course, mention meds given and route, prescriptions, significant lab abnormalities, going to OR and other pertinent info. @ - 72 male to the emergency department for evaluation of fall. Fall from standing mechanical fall a few days of pain. Mainly complaining of hip knee and elbow pain. Patient's pain is worse when he ambulates. No acute traumatic injuries found. Patient's pain is improved here in the urine can be discharged home Discharge Undiagnosed new problem with uncertain prognosis? @ -no Drug Therapy requiring intensive monitoring for toxicity (Heparin, Nitro, Insulin, Cardizem)? @ -no Were any procedures done? @ -no Diagnosis/symptom? @ -Fall, right knee pain right hip pain Acute, or Chronic, or Acute on Chronic? @ -Acute Uncomplicated (without systemic symptoms) or Complicated (systemic symptoms)? @ -Complicated Side effects of treatment? @ -no Exacerbation, Progression, or Severe Exacerbation? @ -exacerbation Poses a threat to life or bodily function? How? (Chest pain, [place], [place], pneumonia, PE, COPD, DKA, ARF, appy, cholecystitis, CVA, Diverticulitis, Homicidal, Suicidal, threat to staff... and all critical care pts) @ -yes (Deion Acuna) Medical Decision Making <Jayla Melton - Last Filed: 03/28/23 17:16> - Radiology Data Radiology results: report reviewed (X-ray right hip knee and elbow are negative for traumatic injury), image reviewed <Deion Acuna - Last Filed: 04/06/23 14:16> - Medical Decision Making Quick note performed by Jayla Melton PA-C (Jayla Melton) 72 male to the emergency department for evaluation of fall. Fall from standing mechanical fall a few days of pain. Mainly complaining of hip knee and elbow pain. Patient's pain is worse when he ambulates. No acute traumatic injuries found. Patient's pain is improved here in the urine can be discharged home (Deion Acuna) Disposition <Jayla Melton - Last Filed: 03/28/23 17:16> Is patient prescribed a controlled substance at d/c from ED?: No Time of Disposition: 17:00 <Deion Acuna - Last Filed: 04/06/23 14:16> Clinical Impression: Fall, Contusion of knee, right, Right hip pain Disposition: HOME SELF-CARE Condition: Good Instructions (If sedation given, give patient instructions): Fall Prevention for Older Adults (ED) Referrals: Blair Aaron MD [Primary Care Provider] - 1-2 days
--- NOTE | 2023-02-25 16:35 | XR ---
EXAMINATION TYPE: XR elbow complete RT DATE OF EXAM: 02/25/2023 COMPARISON: NONE HISTORY: Pain FINDINGS: Three views of the elbow demonstrate no pathologic joint effusion. This slight cortical step-off invo lving the radial neck. Diffuse osteopenia. Tiny olecranon spur. IMPRESSION: 1. Recommend CT scan to assess for hairline nondisplaced fracture near the radial neck\.head.
--- NOTE | 2023-02-25 16:41 | XR ---
EXAMINATION TYPE: XR knee complete RT DATE OF EXAM: 02/25/2023 COMPARISON: NONE HISTORY: Pain TECHNIQUE: Three views are submitted. FINDINGS: Diffuse osteopenia. Mass effect calcifications. Mild osteoarthritis.. Osseous structures are intact. No acute fracture seen. Linear lucency in the lateral view near the tibial tubercle likely related to incomplete fusion. IMPRESSION: 1. No definite acute fracture or dislocation. Linear lucency adjacent to the tibial tubercle on the lateral view likely related to incomplete fusion correlate with point tenderness.
--- NOTE | 2023-02-25 16:43 | XR ---
EXAMINATION TYPE: XR Hip Complete RT DATE OF EXAM: 02/25/2023 COMPARISON: NONE HISTORY: Pain TECHNIQUE: 2 views submitted FINDINGS: There is no evidence of erosive change or acute fracture. Diffuse osteopenia with moderate concentric narrowing of the joint space. Metallic structure in the pelvis is indeterminate. SI joint arthropath y. IMPRESSION: 1. No evidence of acute fracture or dislocation. If patient has difficulty with weightbearing or high clinical concern for fracture consider CT scan.
[2023-02-25 17:51] VITALS: BP 135/84; PULSE 63; RESP 18; TEMP 98.8
== END 2023-02-25 17:29 | disposition home or self-care (01) ==
LOC: EC 14:31
DX: S80.01XA Contusion of right knee, initial encounter (principal); S52.134A Nondisplaced fracture of neck of right radius, initial encounter for closed fracture; K21.9 Gastro-esophageal reflux disease without esophagitis; M19.90 Unspecified osteoarthritis, unspecified site; Z79.899 Other long term (current) drug therapy; Z88.0 Allergy status to penicillin; Z88.6 Allergy status to analgesic agent; Z88.8 Allergy status to other drugs, medicaments and biological substances; W18.30XA Fall on same level, unspecified, initial encounter
CPT/HCPCS: 73502; 99284

== ENCOUNTER → 2023-03-06 | Outpatient (CLI) | payer MEDICARE ==
--- NOTE | 2023-03-07 09:03 | CT ---
EXAMINATION TYPE: CT elbow RT wo con CT DLP: 197.70 mGycm, Automated exposure control for dose reduction was used. DATE OF EXAM: 03/06/2023 4:28 PM COMPARISON: Extremity radiograph 02/25/2023. CLINICAL INDICATION:Male, 72 years old with history of M25.551 Pain in right hip; M25.521 Pain in rig ht e; PHH, RT elbow pain after fall 2 weeks ago. DLP 889.50. scanned by PK TECHNIQUE: Axial images were obtained of the CT elbow RT wo con, Additional coronal and sagittal refo rmatted images and soft tissue and bone window were obtained for review. 3-D reconstruction was creat ed on a separate workstation. Contrast used: mL of , (None if empty) Oral contrast used: (None if empty) FINDINGS: No evidence of joint effusion. Mild osteophyte formation of the coronoid process of the uln a. The radial head is intact. No joint bodies visualized. Mild osteophyte formation around the proxim al radioulnar joint. There is no evidence of fracture, subluxation, or dislocation. No significant s oft tissue swelling or joint effusion is identified. No focal muscular atrophy or edema is identified . No radiopaque foreign body identified. IMPRESSION: 1. No evidence of fracture. 2. Minimal degeneration changes of the elbow including the radioulnar joint and osteophytes involvin g the coronoid process of the ulna. No evidence for joint effusion.
--- NOTE | 2023-03-07 11:01 | CT ---
EXAMINATION TYPE: CT hip RT wo con DATE OF EXAM: 03/06/2023 COMPARISON: X-ray 02/25/2023 HISTORY: RT hip pain after fall [address] DLP: 889.50 mGycm Automated exposure control for dose reduction was used. FINDINGS: Cystic changes are seen involving the roof of the glenoid and there is mild hypertrophic arthropathy of the hip. Correlate for femoral acetabular impingement. Tiny bony density along the superior margin of the greater trochanter likely is chronic Femoral neck appears intact with no definite acute fracture. There is mild demineralization. There is well-corticated densities adjacent to the lateral margin of the acetabulum on the left sugge stive of either remote trauma or heterotopic ossification. Vascular calcifications are noted. There i s a small fat-containing Sclerosis of the SI joints bilaterally SI joint sacroiliitis IMPRESSION: 1. ARTHROPATHY CORRELATES WITH FEMORAL ACETABULAR IMPINGEMENT. 2. NO DEFINITE ACUTE DISPLACED FRACTURE. TINY PUNCTATE 1 TO 2 MM DENSITY ALONG THE UPPER MARGIN OF TH E GREATER TROCHANTER MOST LIKELY IS CHRONIC. CORRELATE WITH POINT TENDERNESS. TINY AVULSION INJURY WO ULD BE FELT LESS LIKELY. IF PATIENT IS POINT TENDER IN THE REGION CONSIDER MRI TO ASSESS FOR TENDINOU S INJURY.
--- NOTE | 2023-03-07 11:47 | CT ---
EXAMINATION TYPE: CT pelvis wo con DATE OF EXAM: 03/06/2023 COMPARISON: HISTORY: RT hip pain after fall [address] DLP: 889.50 mGycm Automated exposure control for dose reduction was used. FINDINGS: Cystic changes are seen involving the roof of the glenoid and there is mild hypertrophic arthropathy of the hip. Correlate for femoral acetabular impingement. Tiny bony density along the superior margin of the greater trochanter likely is chronic Femoral neck appears intact with no definite acute fracture. There is mild demineralization. There is well-corticated densities adjacent to the lateral margin of the acetabulum on the left sugge stive of either remote trauma, chronic acetabular labral tear or heterotopic ossification. Vascular calcifications are noted. There is a small fat-containing Sclerosis of the SI joints bilaterally SI joint sacroiliitis Disc bulging at L4-5 and L5-S1. Suspect canal stenosis at L3-4, L4-5 and L3-L4. Spina bifida occulta of the sacrum. Nonspecific scattered sclerotic foci. 2 small to characterize. There is a fat-containing anterior abdominal wall hernia. Diverticulosis of the colon. IMPRESSION: 1. ARTHROPATHY CORRELATES WITH FEMORAL ACETABULAR IMPINGEMENT. 2. NO DEFINITE ACUTE DISPLACED FRACTURE. TINY PUNCTATE 1 TO 2 MM DENSITY ALONG THE UPPER MARGIN OF TH E GREATER TROCHANTER MOST LIKELY IS CHRONIC. CORRELATE WITH POINT TENDERNESS. TINY AVULSION INJURY WO ULD BE FELT LESS LIKELY. IF PATIENT IS POINT TENDER IN THE REGION CONSIDER MRI TO ASSESS FOR TENDINOU S INJURY. 3. BILATERAL SACROILIITIS.
== END | disposition home or self-care (01) ==
LOC: RADCTMAIN 15:31
PROVIDERS: ATTEND Family Medicine
DX: M19.021 Primary osteoarthritis, right elbow (principal); M16.11 Unilateral primary osteoarthritis, right hip; M46.1 Sacroiliitis, not elsewhere classified; M25.851 Other specified joint disorders, right hip
CPT/HCPCS: 72192

== ENCOUNTER → 2023-03-27 | Outpatient (CLI) | payer MEDICARE ==
[2023-03-28 02:57] LABS: Prostate Specific Antigen <0.01 ng/mL (0.000-6.500); Testosterone <10.00 ng/dL (86.98-780.10)
== END | disposition home or self-care (01) ==
LOC: LABWHC1 16:03
PROVIDERS: ATTEND Urology
DX: C61 Malignant neoplasm of prostate (principal)
CPT/HCPCS: 36415; 84153; 84403

== ENCOUNTER 2023-11-29 20:13 | Emergency (ER) | payer MEDICARE ==
[2023-11-29 20:28] VITALS: RESP 18
--- NOTE | 2023-11-29 20:54 | ED ---
Fall HPI - General Chief Complaint: Fall Stated Complaint: Fall-Head Laceration Time Seen by Provider: 11/29/23 20:30 Source: patient, RN notes reviewed Mode of arrival: ambulatory - History of Present Illness Initial Comments: 73-year-old male presents emergency department accompanied by his chief complaint of a fall. Patient states that he has been falling a lot recently over the past few months and fell a few times today. Patient's most recent fall occurred while he was outside he tripped and fell striking the right side of his forehead. Patient denies loss of consciousness at the time of this event. Denies blood thinner use. He denies chest pain, heart palpitations, dizzy lightheadedness provide time of the event. States that he lost his footing. Patient is following with his primary care provider outpatient for further evaluation of frequent falls and has imaging and blood work scheduled next week. Currently he is denying chest pain, shortness of breath, difficulty breathing, headaches blurry or double vision. - Related Data Home Medications Medication Instructions Recorded Confirmed Donepezil [Aricept] 10 mg PO DAILY 08/17/14 08/20/21 Pantoprazole Sodium [Protonix] 40 mg PO DAILY 08/17/14 08/20/21 amantadine HCL [Symmetrel] 100 mg PO BID 08/17/14 08/20/21 lamoTRIgine [LaMICtal] 25 mg PO BID 08/17/14 08/20/21 Rosuvastatin Calcium [Crestor] 5 mg PO W/LUNCH 02/20/21 08/20/21 Sertraline [Zoloft] 100 mg PO DAILY 02/20/21 08/20/21 Metoprolol Tartrate [Lopressor] 12.5 mg PO BID 08/20/21 08/20/21 Previous Rx's Medication Instructions Recorded Cephalexin [Keflex] 500 mg PO Q8HR 10 Days #30 cap 08/25/21 Lactobacillus Acidoph & Bulgar 1 each PO TID packet 08/25/21 [Lactinex] Allergies Allergy/AdvReac Type Severity Reaction Status Date / Time aspirin Allergy NAUSEA Verified 11/29/23 20:28 /VOMITING Penicillins Allergy Rash/Hives Verified 11/29/23 20:28 NSAIDS (Non-Steroidal AdvReac Unknown Nausea & Verified 11/29/23 20:28 Anti-Inflamma Vomiting-UPSET STOMACH Review of Systems ROS Statement: Those systems with pertinent positive or pertinent negative responses have been documented in the HPI. ROS Other: All systems not noted in ROS Statement are negative. 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, prostate cancer, kidney stones History of Any Multi-Drug Resistant Organisms: None Reported Past Surgical History: Hernia Repair, Orthopedic Surgery, Prostate Surgery Additional Past Surgical History / Comment(s): right shoulder surgery arthroscopy, surgery on right shoulder to cut end of bone and attach tendon, left ureteroscopy with laser lithotripsy 05/2021, bilateral cataracts, prostate surgery 08/10/2021 Past Anesthesia/Blood Transfusion Reactions: Postoperative Nausea & Vomiting (PONV) Additional Past Anesthesia/Blood Transfusion Reaction / Comment(s): severe PONV Past Psychological History: No Psychological Hx Reported Smoking Status: Never smoker Past Alcohol Use History: None Reported Past Drug Use History: None Reported - Past Family History Father Family Medical History: Cancer General Exam - General Exam Comments Initial Comments: Visual Physical Exam Vital signs reviewed General: Well-appearing, nontoxic, no acute distress. Head: Normocephalic, atraumatic Eyes: PERRLA, EOMI ENT: Airway patent Chest: Nonlabored breathing Skin: No visual rash, normal skin tone Neuro: Alert and oriented 3 Musculoskeletal: No gross abnormalities Limitations: no limitations General appearance: alert, in no apparent distress Head exam: Present: other (right forehead abrasion, 3 cm by 2 cm, no laceration or active bleeding) Eye exam: Present: normal appearance, PERRL, EOMI. Absent: scleral icterus, conjunctival injection, periorbital swelling ENT exam: Present: normal exam, mucous membranes moist Neck exam: Present: normal inspection. Absent: tenderness, meningismus, lymphadenopathy Respiratory exam: Present: normal lung sounds bilaterally. Absent: respiratory distress, wheezes, rales, rhonchi, stridor Cardiovascular Exam: Present: regular rate, normal rhythm, normal heart sounds. Absent: systolic murmur, diastolic murmur, rubs, gallop, clicks GI/Abdominal exam: Present: soft, normal bowel sounds. Absent: distended, tenderness, guarding, rebound, rigid Extremities exam: Present: normal inspection, full ROM, normal capillary refill. Absent: tenderness, pedal edema, joint swelling, calf tenderness Back exam: Present: normal inspection Neurological exam: Present: alert, oriented X3, CN II-XII intact Skin exam: Present: warm, dry, intact, normal color. Absent: rash Course Vital Signs 11/29/23 11/29/23 20:25 23:35 Temperature 98.4 F 97.8 F Pulse Rate 69 66 Respiratory 18 18 Rate Blood Pressure 137/90 124/91 O2 Sat by Pulse 97 94 L Oximetry Medical Decision Making - Medical Decision Making Was pt. sent in by a medical professional or institution (, PA, [employer], urgent care, hospital, or [place] [facility] facility...) When possible be specific @ -No Did you speak to anyone other than the patient for history (EMS, parent, family, police, friend...)? What history was obtained from this source @ -Consulted patient's at bedside states that patient has a history of frequent falls and is following with his primary care provider for further evaluation with outpatient testing and laboratory testing. Did you review nursing and triage notes (agree or disagree)? Why? @ -I reviewed and agree with nursing and triage notes Were old charts reviewed (outside hosp., previous admission, EMS record, old EKG, old radiological studies, urgent care reports/EKG's, [place] [facility] facility records)? Report findings @ -No old charts were reviewed Differential Diagnosis (chest pain, altered mental status, abdominal pain women, abdominal pain men, vaginal bleeding, weakness, fever, dyspnea, syncope, headache, dizziness, GI bleed, back pain, seizure, CVA, palpatations, mental health, musculoskeletal)? @ -Differential Weakness: Hypoglycemia, shock, sepsis, hyponatremia, anemia, infection, SD, ETOH, adverse medicine reaction, overdose, stroke, this is not meant to be an all-inclusive list. EKG interpreted by me (3pts min.). @ -Completed at 2122, sinus rhythm with a ventricular to 61, parable 160, QTc 413. No acute signs of ischemia. X-rays interpreted by me (1pt min.). @ -None done CT interpreted by me (1pt min.). @ -CT of the brain and C-spine without contrast reveals no acute intracranial process with a small area of encephalomalacia involving the right frontal lobe, area of fullness in the right frontal sinuses with no evidence for acute spinal fracture U/S interpreted by me (1pt. min.). @ -None done What testing was considered but not performed or refused? (CT, X-rays, U/S, labs)? Why? @ -Labs were considered but deferred at this time. Lengthy discussion with family at bedside and in regard to laboratory testing, they have declined. States that the patient has outpatient testing scheduled with his primary care provider including labs and MRI imaging and he would like to forego this rather than What meds were considered but not given or refused? Why? @ -None Did you discuss the management of the patient with other professionals (professionals i.e. , PA, [employer], lab, RT, psych nurse, protective services social worker, associate principal, teacher, custom protection officer, correctional case manager)? Give summary @ -No Was smoking cessation discussed for >3mins.? @ -No Was critical care preformed (if so, how long)? @ -No Were there social determinants of health that impacted care today? How? (Homelessness, low income, unemployed, alcoholism, drug addiction, tra nsportation, low edu. Level, literacy, decrease access to med. care, halfway, rehab)? @ -No Was there de-escalation of care discussed even if they declined (Discuss DNR or withdrawal of care, Hospice)? DNR status @ -No What co-morbidities impacted this encounter? (DM, HTN, Smoking, COPD, CAD, Cancer, CVA, ARF, Chemo, Hep., AIDS, mental health diagnosis, sleep apnea, morbid obesity)? @ -None Was patient admitted / discharged? Hospital course, mention meds given and route, prescriptions, significant lab abnormalities, going to OR and other pertinent info. @ -Discharged. 73-year-old with fall. Examination patient is resting open no signs of acute distress. Vitals are stable. Neurological examination with no acute deficits. Patient will be evaluated via CT imaging of the brain and C- spine without contrast for further evaluation of frequent falls. Discussion with laboratory testing patient and patient's have declined at this time. Abrasion to the patient's forehead with cleansed with sterile water and Steri- Strips were placed over top. Patient was also provided with his tetanus vaccination. abrasion was cleansed with sterile water and steri strips placed over skin to minimize chance of infection. patient is stable for discharge. all questions answered at bedside and strict return parameters discussed with the patient and he has verbalized understnading. discussed with Dr. Acuna Undiagnosed new problem with uncertain prognosis? @ -No Drug Therapy requiring intensive monitoring for toxicity (Heparin, Nitro, Insulin, Cardizem)? @ -No Were any procedures done? @ -No Diagnosis/symptom? @ -fall, head abrasion Acute, or Chronic, or Acute on Chronic? @ -acute Uncomplicated (without systemic symptoms) or Complicated (systemic symptoms)? @ -uncomplicated Side effects of treatment? @ -No Exacerbation, Progression, or Severe Exacerbation? @ -No Poses a threat to life or bodily function? How? (Chest pain, USA, SD, pneumonia, PE, COPD, DKA, ARF, appy, cholecystitis, CVA, Diverticulitis, Homicidal, Suicidal, threat to staff... and all critical care pts) @ -No Disposition Clinical Impression: Fall, Head injury, Abrasion Disposition: HOME SELF-CARE Condition: Good Instructions (If sedation given, give patient instructions): Fall Prevention for Older Adults (ED) Additional Instructions: Return to the emergency department for any new or worsening symptoms. Continue to ice affected area. Follow-up with your primary care provider next week for further evaluation. Is patient prescribed a controlled substance at d/c from ED?: No Referrals: Blair Aaron MD [Primary Care Provider] - 1-2 days Time of Disposition: 22:31
[2023-11-29] MEDS: DIPH,PERTUS(ACELL)TETVAC-LF 0.5 ML VIAL IM ONE (21:44)
--- NOTE | 2023-11-29 22:15 | CT ---
EXAMINATION TYPE: CT brain cspine wo con CT DLP: 1452.5 mGycm, Automated exposure control for dose reduction was used. DATE OF EXAM: 11/29/2023 9:18 PM COMPARISON: CT brain C-spine 11/01/2021 CLINICAL INDICATION:Male, 73 years old with history of fall, head lac; Fall, forehead laceration TECHNIQUE: Brain: Multiple axial CT images of the brain were obtained without IV contrast. Cspine: Axial CT images from the skull base to the inferior aspect of T2 we obtained without intraven ous contrast. Coronal and sagittal reformatted images were also reviewed. . FINDINGS: Brain: Extra-axial spaces: No abnormal extra-axial fluid collections. Ventricular system: Dilatation in proportion to cerebral atrophy. Cerebral parenchyma: Cerebral atrophy. No acute intraparenchymal hemorrhage or mass effect. Small ar ea of encephalomalacia is seen in the right frontal lobe near the vertex. The serrato-white junction is well differentiated. Cerebellum: Unremarkable. Mass effect: No evidence of midline shift. Intracranial vasculature: Atherosclerotic calcifications of the intracranial vessels. Soft tissues: Small area of fullness is appreciated along the right frontal soft tissues. Calvarium/osseous structures: No acute depressed skull fracture. Paranasal sinuses and mastoid air cells: Small retention cyst is seen in the left maxillary sinus. Th e remainder of the paranasal sinuses and mastoid air cells are clear. Visualized orbits: Bilateral aphakia Cervical spine: Fracture: No acute fractures. Osseous structures: Mild degenerative changes. Vertebral alignment: Within normal limits. Spinal canal/Neural Foramina: Few disc osteophyte complexes are seen with no evidence of significant spinal canal narrowing. No evidence for significant neural foraminal stenosis. Neck soft tissues: Prevertebral soft tissues are within normal limits. Other: The airway is patent. The lung apices are clear. IMPRESSION: 1. No acute intracranial process. 2. Small area of encephalomalacia involving the right frontal lobe relating to remote injury. 3. Small area of fullness in the right frontal soft tissues. Correlate for hematoma/laceration on exa m. 4. No evidence of acute cervical spine fracture.
[2023-11-29 23:36] VITALS: BP 124/91; PULSE 66; TEMP 97.8
== END 2023-11-29 23:35 | disposition home or self-care (01) ==
LOC: EC 20:13
CPT/HCPCS: 70450; 72125; 90471; 90715; 93005; 99284

== ENCOUNTER → 2023-12-05 | Outpatient (CLI) | payer MEDICARE ==
--- NOTE | 2023-12-05 16:33 | MR ---
INDICATION: Patient age:Male; 73 years old; Reason for study: R26.0 ataxic gait; PHH. COMPARISON: CT brain C-spine 11/29/2023, 11/01/2021. TECHNIQUE: Multi planar, multi sequence imaging was performed through the brain. The patient was then given 9 cc of Gadavist intravenously and multi planar, T1 fat-saturation images were obtained. FINDINGS: The serrato-white junctions, basal cisterns appear unremarkable. Prominence of the peripheral sulci and ventricular system consistent with cerebral volume loss. Diffusion-weighted imaging shows no evidence of restricted diffusion to suggest acute/subacute infarct. Small region of encephalomalacia with gli osis within the right frontal lobe near the vertex consistent with remote injury. Remote lacunar inju ry within the right basal ganglia. Intracranial arterial flow voids are maintained. There is an ovoid 1 cm enhancing lesion with dural tail along the olfactory groove (series 701, image 83). Demonstrate s FLAIR signal hyperintensity. No invasion into surrounding structures. No surrounding vasogenic aimee a. Patchy areas of high T2/FLAIR signal intensity are seen within the periventricular white matter an d anjali. The susceptibility weighted images demonstrate a few foci of blooming artifact consistent wit h prior microhemorrhage. No other regions of abnormal enhancement identified. The bone marrow signal is within normal limits. Bilateral aphakia. T2 hyperintense 1.1 cm mucous rete ntion cyst within the inferior left maxillary sinus. Mild mucosal thickening in the ethmoid sinuses. IMPRESSION: 1. No evidence of acute/subacute infarct. 2. 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 No surrounding edema. 3. Nonspecific white matter changes, likely related to small vessel ischemic disease versus other linh ologies such as demyelination. [facility], , 12/05/2023 4:30 PM
== END | disposition home or self-care (01) ==
LOC: RADMRIMAIN 14:19
PROVIDERS: ATTEND Psychiatry & Neurology Neurology
DX: R26.0 Ataxic gait
CPT/HCPCS: 70553

== ENCOUNTER 2024-01-02 17:44 | Emergency (ER) | payer MEDICARE ==
[2024-01-02 17:55] VITALS: TEMP 98.4
--- NOTE | 2024-01-02 18:30 | ED ---
General Adult HPI - General Chief complaint: Fall Stated complaint: Fall/gash on head L side Time Seen by Provider: 01/02/24 17:56 Source: patient, family Mode of arrival: wheelchair Limitations: no limitations - History of Present Illness Initial comments: Dictation was produced using [employer] dictation software. please excuse any grammatical, word or spelling errors. Chief Complaint: 73-year-old male presents to the emergency department with head injury History of Present Illness: Patient 73-year-old male takes no anticoagulation medication he was on a ladder when the ladder collapsed causing him to fall. He was on the second step of the ladder. He takes no anticoagulation medications. Patient states that he hit the back of his head. Denies any loss of consciousness states that he was unable to get up after the head injury. Patient denies any other complaints. Event occurred approximately 30 minutes prior to arrival The ROS documented in this emergency department record has been reviewed and confirmed by me. Those systems with pertinent positive or negative responses have been documented in the HPI. All other systems are other negative and/or noncontributory. - Related Data Home Medications Medication Instructions Recorded Confirmed Donepezil [Aricept] 10 mg PO DAILY 08/17/14 08/20/21 Pantoprazole Sodium [Protonix] 40 mg PO DAILY 08/17/14 08/20/21 amantadine HCL [Symmetrel] 100 mg PO BID 08/17/14 08/20/21 lamoTRIgine [LaMICtal] 25 mg PO BID 08/17/14 08/20/21 Rosuvastatin Calcium [Crestor] 5 mg PO W/LUNCH 02/20/21 08/20/21 Sertraline [Zoloft] 100 mg PO DAILY 02/20/21 08/20/21 Metoprolol Tartrate [Lopressor] 12.5 mg PO BID 08/20/21 08/20/21 Previous Rx's Medication Instructions Recorded Cephalexin [Keflex] 500 mg PO Q8HR 10 Days #30 cap 08/25/21 Lactobacillus Acidoph & Bulgar 1 each PO TID packet 08/25/21 [Lactinex] Allergies Allergy/AdvReac Type Severity Reaction Status Date / Time aspirin Allergy NAUSEA Verified 01/02/24 17:50 /VOMITING Penicillins Allergy Rash/Hives Verified 01/02/24 17:50 NSAIDS (Non-Steroidal AdvReac Unknown Nausea & Verified 01/02/24 17:50 Anti-Inflamma Vomiting-UPSET STOMACH Review of Systems ROS Statement: Those systems with pertinent positive or pertinent negative responses have been documented in the HPI. ROS Other: All systems not noted in ROS Statement are negative. 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, prostate cancer, kidney stones History of Any Multi-Drug Resistant Organisms: None Reported Past Surgical History: Hernia Repair, Orthopedic Surgery, Prostate Surgery Additional Past Surgical History / Comment(s): right shoulder surgery arthroscopy, surgery on right shoulder to cut end of bone and attach tendon, left ureteroscopy with laser lithotripsy 05/2021, bilateral cataracts, prostate surgery 08/10/2021 Past Anesthesia/Blood Transfusion Reactions: Postoperative Nausea & Vomiting (PONV) Additional Past Anesthesia/Blood Transfusion Reaction / Comment(s): severe PONV Past Psychological History: No Psychological Hx Reported Smoking Status: Never smoker Past Alcohol Use History: None Reported Past Drug Use History: None Reported - Past Family History Father Family Medical History: Cancer General Exam - General Exam Comments Initial Comments: PHYSICAL EXAM: General Impression: Alert and oriented x3, not in acute distress HEENT: N hematoma small laceration to the left occipital parietal area, extra- ocular movements intact, pupils equal and reactive to light bilaterally, mucous membranes moist. Cardiovascular: Heart regular rate and rhythm Chest: Able to complete full sentences, no retractions, no tachypnea Abdomen: abdomen soft, non-tender, non-distended, no organomegaly Musculoskeletal: Pulses present and equal in all extremities, no peripheral edema Motor: no focal deficits noted Neurological: CN II-XII grossly intact, no focal motor or sensory deficits noted Skin: Intact with no visualized rashes Psych: Normal affect and mood Limitations: no limitations Course Vital Signs 01/02/24 17:50 Temperature 98.4 F Pulse Rate 68 Respiratory 18 Rate Blood Pressure 135/78 O2 Sat by Pulse 98 Oximetry EKG Findings - EKG Comments: EKG Findings:: My EKG interpretation: Ventricular rate 63, sinus rhythm,. 173, QRS 80, QTc 426. No NV prolongation, no QTC prolongation, no ST or T-wave changes noted. Overall, this EKG is unremarkable Procedures - Laceration Laceration #1 Consent Obtained: verbal consent Indication: laceration Site: scalp Description: linear Anesthetic Used: lidocaine 1% Anesthesia Technique: local infiltration Amount (mls): 1 Size of Sutures: other (charley) Number of Sutures: 2 Patient Tolerated Procedure: well Medical Decision Making - Medical Decision Making Was pt. sent in by a medical professional or institution (, PA, [employer], urgent care, hospital, or care home...) When possible be specific @ -No Did you speak to anyone other than the patient for history (EMS, parent, family, police, friend...)? What history was obtained from this source @ -No Did you review nursing and triage notes (agree or disagree)? Why? @ -I reviewed and agree with nursing and triage notes Were old charts reviewed (outside hosp., previous admission, EMS record, old EKG, old radiological studies, urgent care reports/EKG's, care home records)? Report findings @ -No old charts were reviewed Differential Diagnosis (chest pain, altered mental status, abdominal pain women, abdominal pain men, vaginal bleeding, musculoskeletal, weakness, fever, dyspnea, syncope, headache, dizziness, GI bleed, back pain, seizure, CVA, palpatations, mental health)? @ -Skull fracture, intracranial bleed, head contusion EKG interpreted by me (3pts min.). @ -See above X-rays interpreted by me (1pt min.). @ -None done CT interpreted by me (1pt min.). @ -CT scan of the head and C-spine shows no acute processes U/S interpreted by me (1pt. min.). @ -None done What testing was considered but not performed or refused? (CT, X-rays, U/S, labs)? Why? @ -None What meds were considered but not given or refused? Why? @ -None Was smoking cessation discussed for >3mins.? @ -No Were there social determinants of health that impacted care today? How? (Homelessness, low income, unemployed, alcoholism, drug addiction, transportation, low edu. Level, literacy, decrease access to med. care, penitentiary, rehab)? @ -No Was there de-escalation of care discussed even if they declined (Discuss DNR or withdrawal of care, Hospice)? DNR status @ -No What co-morbidities impacted this encounter? (DM, HTN, Smoking, COPD, CAD, Cancer, CVA, ARF, Chemo, Hep., AIDS, mental health diagnosis, sleep apnea, morbid obesity)? @ -None Was patient admitted / discharged? Hospital course, mention meds given and route, prescriptions, significant lab abnormalities, going to OR and other pertinent info. @ -73-year-old male suffered mechanical fall from ladder. He has a small pinpoint laceration to his head that is bleeding. Vital signs upon arrival are within acceptable limits. Patient has no other complaints. CT brain is negative. Laboratory evaluation is unremarkable. Laceration repaired with [address] st aples. Patient discharged with instruction follow-up with primary care doctor. [place] to be removed in 5 to 7 days Did you discuss the management of the patient with other professionals (professionals i.e. , PA, [employer], lab, RT, psych nurse, social security benefits interviewer, application integrator, teacher, affirmative action officer, case management coordinator)? Give summary @ -No Was critical care preformed (if so, how long)? @ -No Undiagnosed new problem with uncertain prognosis? @ -No Drug Therapy requiring intensive monitoring for toxicity (Heparin, Nitro, Insulin, Cardizem)? @ -No Were any procedures done? @ -No Diagnosis/symptom? Acute, or Chronic, or Acute on Chronic? Uncomplicated (without systemic symptoms) or Complicated (systemic symptoms)? @ -Scalp laceration, mechanical fall Side effects of treatment? @ -No Exacerbation, Progression, or Severe Exacerbation? @ -No Poses a threat to life or bodily function? How? (Chest pain, [place], [place], pneumonia, PE, COPD, DKA, ARF, appy, cholecystitis, CVA, Diverticulitis, Homicidal, Suici isi, threat to staff... and all critical care pts) @ -No - Lab Data Result diagrams: 01/02/24 19:40 01/02/24 19:40 Lab Results 01/02/24 01/02/24 Range/Units 19:40 19:40 WBC 7.3 (3.8-10.6) k/uL RBC 4.27 L (4.30-5.90) m/uL Hgb 13.2 (13.0-17.5) gm/dL Hct 41.5 (39.0-53.0) % MCV 97.1 (80.0-100.0) fL MCH 30.8 (25.0-35.0) pg MCHC 31.7 (31.0-37.0) g/dL RDW 13.1 (11.5-15.5) % Plt Count 151 (150-450) k/uL MPV 7.7 Neutrophils % 75 % Lymphocytes % 15 % Monocytes % 6 % Eosinophils % 2 % Basophils % 0 % Neutrophils # 5.5 (1.3-7.7) k/uL Lymphocytes # 1.1 (1.0-4.8) k/uL Monocytes # 0.4 (0-1.0) k/uL Eosinophils # 0.2 (0-0.7) k/uL Basophils # 0.0 (0-0.2) k/uL Sodium 140 (137-145) mmol/L Potassium 4.0 (3.5-5.1) mmol/L Chloride 109 H (98-107) mmol/L Carbon Dioxide 22 (22-30) mmol/L Anion Gap 9 mmol/L BUN 17 (9-20) mg/dL Creatinine 0.82 (0.66-1.25) mg/dL Est GFR (CKD-EPI)AfAm >90 (>60 ml/min/1.73 sqM) Est GFR (CKD-EPI)NonAf 87 (>60 ml/min/1.73 sqM) Glucose 86 (74-99) mg/dL Calcium 9.6 (8.4-10.2) mg/dL Total Bilirubin 0.9 (0.2-1.3) mg/dL AST 27 (17-59) U/L ALT 22 (4-49) U/L Alkaline Phosphatase 99 (38-126) U/L Total Protein 7.3 (6.3-8.2) g/dL Albumin 4.8 (3.5-5.0) g/dL Lipase 119 (23-300) U/L Disposition Clinical Impression: Fall, Scalp laceration Disposition: HOME SELF-CARE Condition: Good Instructions (If sedation given, give patient instructions): Fall Prevention for Older Adults (ED) Additional Instructions: staple removal in 5 days Is patient prescribed a controlled substance at d/c from ED?: No Referrals: Blair Aaron MD [Primary Care Provider] - 1-2 days Time of Disposition: 20:58
--- NOTE | 2024-01-02 19:09 | CT ---
EXAMINATION TYPE: CT brain cspine wo con CT DLP: 1517.6 mGycm, Automated exposure control for dose reduction was used. DATE OF EXAM: 01/02/2024 6:46 PM COMPARISON: None. CLINICAL INDICATION: Male, 73 years old with history of fall; fall, posterior head lac TECHNIQUE: Brain: Multiple axial CT images of the brain were obtained without IV contrast. Cspine: Axial CT images from the skull base to the inferior aspect of T2 we obtained without intraven ous contrast. Coronal and sagittal reformatted images were also reviewed. . FINDINGS: Brain: Extra-axial spaces: No abnormal extra-axial fluid collections. Ventricular system: Dilatation in proportion to cerebral atrophy. Cerebral parenchyma: Cerebral atrophy. No acute intraparenchymal hemorrhage or mass effect. The serrato -white junction is well differentiated. Scattered hypoattenuating areas are seen within the white mat ter. Cerebellum: Unremarkable. Mass effect: No evidence of midline shift. Intracranial vasculature: unremarkable Soft tissues: Left posterior scalp edema Calvarium/osseous structures: No depressed skull fracture. Paranasal sinuses and mastoid air cells: Clear. Visualized orbits: Bilateral aphakia Cervical spine: Fracture: None. Osseous structures: Multilevel degenerative disc disease changes with endplate spurring and disc oste ophyte complex's. Vertebral alignment: Within normal limits. Spinal canal/Neural Foramina: No evidence of significant spinal canal narrowing. No evidence for sign ificant neural foraminal stenosis. Neck soft tissues: Prevertebral soft tissues are within normal limits. Other: The airway is patent. The lung apices are clear. IMPRESSION: 1. No acute intracranial process. 2. Left posterior scalp edema. 3. No evidence of cervical spine fracture. 4. Mild multilevel degenerative disc disease. [facility], , 01/02/2024 7:07 PM
[2024-01-02] MEDS: DIPH,PERTUS(ACELL)TETVAC-LF 0.5 ML VIAL IM ONE (19:25)
[2024-01-02 19:52] LABS: Basophils % (A) 0 %; Eosinophils # (A) 0.2 k/uL (0-0.7); Eosinophils % (A) 2 %; HCT 41.5 % (39.0-53.0); HGB 13.2 gm/dL (13.0-17.5); Lymphocytes # (A) 1.1 k/uL (1.0-4.8); Lymphocytes % (A) 15 %; MCH 30.8 pg (25.0-35.0); MCHC 31.7 g/dL (31.0-37.0); MCV 97.1 fL (80.0-100.0); Mean Platelet Volume 7.7; Monocytes # (A) 0.4 k/uL (0-1.0); Monocytes % (A) 6 %; Neutrophils # (A) 5.5 k/uL (1.3-7.7); Neutrophils % (A) 75 %; Platelet Count 151 k/uL (150-450); RBC 4.27 m/uL (4.30-5.90); RDW 13.1 % (11.5-15.5); WBC 7.3 k/uL (3.8-10.6)
[2024-01-02 20:00] LABS: ALT 22 U/L (4-49); AST 27 U/L (17-59); African American GFR (CKD) >90 (>60 ml/min/1.73 sqM); Albumin 4.8 g/dL (3.5-5.0); Alkaline Phosphatase 99 U/L (38-126); Anion Gap 9 mmol/L; Blood Urea Nitrogen 17 mg/dL (9-20); Calcium 9.6 mg/dL (8.4-10.2); Carbon Dioxide 22 mmol/L (22-30); Chloride 109 mmol/L (98-107); Glucose 86 mg/dL (74-99); Lipase 119 U/L (23-300); Non-African American GFR(CKD) 87 (>60 ml/min/1.73 sqM); Sodium 140 mmol/L (137-145); Total Bilirubin 0.9 mg/dL (0.2-1.3); Total Protein 7.3 g/dL (6.3-8.2)
[2024-01-02 21:24] LABS: Prothrombin Time 11.3 sec (10.0-12.5)
[2024-01-02 21:28] VITALS: BP 138/80; PULSE 61; RESP 20
[2024-01-02 21:33] LABS: Partial Thromboplastin Time 18.1 sec (22.0-30.0)
== END 2024-01-02 21:27 | disposition home or self-care (01) ==
LOC: EC 17:44
CPT/HCPCS: 12001; 36415; 70450; 72125; 80053; 83690; 85025; 85610; 85730; 93005; 99284

== ENCOUNTER → 2024-01-08 | Outpatient (CLI) | payer MEDICARE ==
[2024-01-08 23:05] LABS: Prostate Specific Antigen <0.01 ng/mL (0.000-6.500); Testosterone <10.00 ng/dL (86.98-780.10)
== END | disposition home or self-care (01) ==
LOC: LABWHC1 14:53
PROVIDERS: ATTEND Urology
CPT/HCPCS: 36415; 82306; 82607; 83036; 84153; 84403

== ENCOUNTER → 2024-02-17 | Outpatient (CLI) | payer MEDICARE | END | disposition home or self-care (01) | LOC: LABWHC1 15:34 | PROVIDERS: ATTEND Psychiatry & Neurology Neurology | DX: R29.6 Repeated falls (principal); R26.0 Ataxic gait; Z79.899 Other long term (current) drug therapy | CPT/HCPCS: 36415; 83036 ==

== ENCOUNTER → 2024-07-09 | Outpatient (CLI) | payer MEDICARE | END | disposition home or self-care (01) | LOC: LABWHC1 15:25 | PROVIDERS: ATTEND Urology | DX: C61 Malignant neoplasm of prostate (principal) | CPT/HCPCS: 36415; 84153 ==

== ENCOUNTER → 2024-10-15 | Outpatient (CLI) | payer MEDICARE ==
--- NOTE | 2024-10-15 13:46 | US ---
EXAMINATION TYPE: US venous doppler duplex LE BI DATE OF EXAM: 10/15/2024 1:34 PM COMPARISON: NONE CLINICAL INDICATION: Male, 73 years old with history of R60.0 LOCALIZED EDEMA; Edema TECHNIQUE: The lower extremity deep venous system is examined utilizing real time linear array sonog sarah with graded compression, doppler sonography and color-flow sonography. Grayscale, color doppler , spectral doppler imaging performed of the deep veins of the lower extremities FINDINGS: SIDE PERFORMED: Bilateral VESSELS IMAGED: Common Femoral Vein Deep Femoral Vein Greater Saphenous Vein * Femoral Vein Popliteal Vein Small Saphenous Vein * Proximal Calf Veins (* superficial vessels) Right Leg: No evidence of DVT. PTVs and peroneal veins were not seen. Left Leg: No evidence of DVT. IMPRESSION: No visualized deep venous thrombosis of the bilateral extremities however the right posterior tibial and peroneal veins are not seen. [facility], , 10/15/2024 1:44 PM
== END | disposition home or self-care (01) ==
LOC: RADUSWWP 13:07
PROVIDERS: ATTEND Family Medicine
DX: R60.0 Localized edema (principal)
CPT/HCPCS: 93970